=== PATIENT | male | born 1990 | race Caucasian/White ===

== ENCOUNTER 2024-04-21 10:45 | Inpatient (IN) | payer BC, SELFPAY ==
[2024-04-21] VITALS (11 sets, daily range): BP systolic 151–192; BP diastolic 90–110; BMI 44.4; BMI 45.4
--- NOTE | 2024-04-21 08:14 | ED.GENMED ---
History of Present Illness
General
Chief Complaint: Abdominal Pain
Source: patient and ambulance crew
Exam Limitations: none
Time Seen by Provider: 04/21/24 08:08
Nursing documentation reviewed up to this point in time: agreed with
History of Present Illness
History of Present Illness:
33-year-old male with a past medical history of hypertension who presents to the emergency department for evaluation of abdominal pain. Patient reports onset this morning when he woke up of mild 'stomach ache.' He says that he was driving to work
and had acute onset of intense left upper quadrant pain. Symptoms have been constant since that time. He reports associated nausea and vomiting. He reports diaphoresis. He has had some loose stools this morning. No dysuria, hematuria, change in
urinary frequency noted. No fevers or chills noted. He denies similar symptoms in the past. Denies any prior history of abdominal surgeries. Denies drinking alcohol but does admit to daily marijuana use.
Past History
Past History
ED Past Medical History: None
ED Past Surgical History: None
Social History
Tobacco: Non-smoker
Review of Systems
Review of Systems
All Other Systems: ROS reviewed and negative except as documented in HPI and ROS
Constitutional: Denies fever or chills
Respiratory: Denies trouble breathing
Cardiac: Reports diaphoresis; Denies chest pain or palpitations
ABD/GI: Reports abdominal pain, nausea, vomiting and diarrhea
: Denies dysuria, frequency, flank pain or bleeding
Musculoskeletal: Denies neck pain or back pain
Neurological: Denies dizzy or headache
Phy Exam
Physical Exam
Physical Exam:
General: Awake, alert, oriented x3; diaphoretic and shifting in the bed, difficulty finding comfortable position
Head: Normocephalic, atraumatic
Eyes: Conjunctiva normal, sclera anicteric
Throat: Airway intact, handling secretions
Neck: Trachea midline, supple without meningismus
Lungs: Clear to auscultation bilaterally, no wheezing, rales, rhonchi
Heart: Regular rate and rhythm, no murmurs, gallops, or rubs
Abd: Soft, non distended, nontender with no palpable masses
Back: No CVA tenderness
Neuro: No gross deficits
Skin: Moist/diaphoretic, no rash noted
Extremities: No edema in extremities, warm well-perfused
Scores
Heart Failure Risk
Heart Failure Risk Score: Not Applicable
Heart Score for Chest Pain Patients
STEMI patient?: Not applicable
Withdrawal Assessment of Alcohol
Withdrawal Assessment Completed?: Not applicable
Course
Orders/Labs/Results
Orders:
Orders
04/21/24 08:05
EKG [Electrocardiogram (*1)] Urgent
Reason for Study: Abdominal Pain
EKG- Treatment ONCE
04/21/24 08:09
Complete Blood Count/With Diff Urgent
Comprehensive Metabolic Panel Urgent
LDH Urgent
Comment: ADD ON
Lipase Urgent
Troponin I Urgent
04/21/24 08:10
CT Abd/pel Without Iv Or Oral Urgent
Comment:
Reason For Exam: left sided abd pain, c/f kidney stone
Urinalysis Reflex To Culture Urgent
04/21/24 08:13
HYDROmorphone [Dilaudid] 0.5 mg IV NOW STA
04/21/24 08:14
0.9% Sodium Chloride 1000 ml [Nss] 1,000 ml IV BOLUS
04/21/24 08:36
HYDROmorphone [Dilaudid] 1 mg IV NOW STA
04/21/24 08:42
Add On- LAB Urgent
Tests Added?: LDH
04/21/24 08:54
GASTROINTESTINAL CONSULT Urgent
Consulting Provider: Ramila Basurto
Was physician already notified: Yes
04/21/24 08:59
Fentanyl Citrate/Pf [Sublimaze] 100 mcg IV NOW STA
Abnormal Lab Results
04/21/24
08:09
WBC 20.8 H 10^3/uL
(4.8-10.8)
Abs Immat Gran (auto) 0.1 H 10^3/uL
(0-0.05)
Absolute Neuts (auto) 15.6 H 10^3/uL
(1.4-6.5)
Absolute Lymphs (auto) 3.5 H 10^3/uL
(1.2-3.4)
Absolute Monos (auto) 1.3 H 10^3/uL
(0.1-0.6)
Lymphocytes % 16.8 L %
(20.5-51.1)
Chloride 108 H mmol/L
(98-107)
Carbon Dioxide 19 L mmol/L
(22-30)
Glucose 179 H mg/dl
(70-99)
AST 60 H U/L
(17-59)
ALT 64 H U/L
(0-50)
Lipase > 4000 H* U/L
(23-300)
04/21/24 08:09
04/21/24 08:09
Vital Signs
Initial and Last Documented VS:
Initial Vital Signs
Temp Pulse Resp BP Pulse Ox
36.6 C 72 17 192/109 97
04/21/24 08:04 04/21/24 08:04 04/21/24 08:04 04/21/24 08:04 04/21/24 08:04
Last Documented Vital Signs
Temp Pulse Resp BP Pulse Ox
36.6 C 65 17 192/109 97
04/21/24 08:04 04/21/24 08:12 04/21/24 08:04 04/21/24 08:12 04/21/24 08:15
MDM/Problems Addressed
Differential Diagnosis Includes:
Nephrolithiasis, gastritis/PUD, pancreatitis, colitis/enteritis, diverticulitis
MDM/Problems Addressed:
33-year-old male presents to the emergency room for evaluation of left upper quadrant abdominal pain�had mild pain this morning with abrupt worsening just prior to arrival. Associated with nausea and vomiting, also had some loose stools this
morning. Vitals and exam as above. Received IV Toradol and Zofran prior to hospital arrival with reasonable control of nausea but inadequate pain control. Will place an IV send labs including a CBC and CMP, lipase. Check an EKG and troponin.
Check urinalysis. Will send for CT abdomen pelvis�clinical impression at this point is likely nephrolithiasis. Will provide additional pain control and IV fluids. Monitor closely reassess after the above.
CT reviewed by me appears to show acute pancreatitis no clear sign of nephrolithiasis. CBC shows WBC of 20, CMP and lipase are pending. Patient pain improved with Dilaudid 0.5 mg but still significant discomfort we will provide additional pain
control. Fluids in progress. I did question patient about alcohol use and again he denied any alcohol use. Anticipate admission.
CMP shows normal T. bili, marginal transaminitis with AST of 60 and ALT of 64; lipase greater than 4000. Still in pain, provide additional pain control. Case discussed with gastroenterology to evaluate�denies drinking history, at this point would
be concerned for possible gallstone pancreatitis. Case discussed with hospitalist for admission.
Acute Exacerbation and/or Progression of Chronic Illness:
Acutely hypertensive likely related to pain�will treat pain will hold on additional antihypertensive for now in the absence of signs/symptoms of hypertensive emergency
Acute Exacerbation and/or Progression of Chronic Illness: HTN
*Radiology
Radiology exam reviewed: preliminary read by ED provider (Acute pancreatitis) and radiology read reviewed
*Pulse Oximetry
Patient hypoxic: no
*EKG
Interpreted by ED Provider?: Yes
Heart Rate: 62
Rate: normal
Rhythm: sinus
[place]: normal axis
Interval: normal interval
QRS Pattern: normal QRS
Ischemia: no ischemia
*Critical Care Note
Total Time (30-74mins, 75-104mins- exclusive of procedures): Not Applicable
Data Reviewed
Review of Other/Old Records Reveals: Labs and Records
Source: patient and ambulance crew
Patient Management
Discussion with other providers: Hospitalist (Discussed with hospitalist) and Rebar Bender (Discussed with gastroenterology)
Escalation/DeEscalation of care consider admission/obs:
Admission indicated
ED Attending Note
-
Portions of this chart may have been created with voice recognition software.� Occasional wrong word or��sound alike� substitutions may have occurred due to the inherent limitations of voice recognition software.
Discharge Plan
Departure
Patient Disposition: Admit
Date of Disposition: 04/21/24
Time of Disposition: 08:57
Admit to doctor: Do
Presentation/result/management discussed w/ accepting MD/DO: Hospitalist
Patient with high blood pressure during this ER visit?: Yes
Discharge Problem:
Acute pancreatitis
Prescriptions:
No Action
allopurinol 100 mg Tablet
100 mg PO DAILY
lisinopril 10 mg Tablet
10 mg PO DAILY
atomoxetine 18 mg Capsule
18 mg PO DAILY
Referrals:
NONE,* [Family Provider] -
Interventions
Interventions:
*Risk Screen - Suicide Last Done: 04/21/24 08:06
*General Assessment Last Done: 04/21/24 08:06
*Neglect/Abuse Screening Last Done: 04/21/24 08:06
*ED COVID-19 Vaccine History Last Done: 04/21/24 08:06
PZ-Gvkeap-Cpsazxclif Assessment Last Done: 04/21/24 08:06
Discharge Date and Time
Print Language: AMHARIC
[2024-04-21] MEDS: NSS 1000 IV (08:17)
[2024-04-21] MEDS: DILAUDID 0.5 MG IV (08:17)
[2024-04-21 08:19] LABS: % Basophils 0.2 % (0-2); % Eosinophils 1.3 % (0-6); % Immature Granulocytes 0.4 % (0-0.5); % Lymphocytes 16.8 % (20.5-51.1); % Monocytes 6.1 % (1.7-9.3); % Neutrophils 75.2 % (42.2-75.2); Absolute Basophils 0.1 10^3/uL (0-0.2); Absolute Eosinophils 0.3 10^3/uL (0-0.7); Absolute Immature Granulocytes 0.1 10^3/uL (0-0.05); Absolute Lymphocytes 3.5 10^3/uL (1.2-3.4); Absolute Monocytes 1.3 10^3/uL (0.1-0.6); Absolute Neutrophils 15.6 10^3/uL (1.4-6.5); Hematocrit 46.2 % (39.0-52.0); Hemoglobin 16.1 g/dL (13.0-18.0); Mean Corp Hgb Conc. 34.8 g/dL (33.0-37.0); Mean Corpuscular Hgb 28.8 pg (27.0-31.0); Mean Corpuscular Volume 82.6 fL (80.0-94.0); Mean Platelet Volume 10.3 fL (7.4-10.4); Nucleated Red Blood Cells % 0 % (-); Platelet Count 191 10^3/uL (130-400); Red Blood Cell Count 5.59 10^6/uL (4.70-6.10); Red Cell Dist. Width 13.6 % (11.5-14.5); White Blood Cell Count 20.8 10^3/uL (4.8-10.8)
[2024-04-21 08:33] LABS: ALT (SGPT) 64 U/L (0-50); AST (SGOT) 60 U/L (17-59); Albumin 4.7 g/dl (3.5-5.0); Alkaline Phosphatase 96 U/L (38-126); Blood Urea Nitrogen 14 mg/dl (9-20); Calcium 9.4 mg/dl (8.4-10.2); Carbon Dioxide 19 mmol/L (22-30); Chloride 108 mmol/L (98-107); Estimated Creatinine Clearance > 125 ml/min; Glucose 179 mg/dl (70-99); Potassium 3.5 mmol/L (3.5-5.1); Sodium 138 mmol/L (135-145); Total Protein 7.2 g/dl (6.3-8.2); eGFR > 60.00
[2024-04-21] MEDS: DILAUDID 1 MG IV ×5 (08:38→20:48)
[2024-04-21 08:45] LABS: Troponin I < 0.012 ng/ml
[2024-04-21 08:49] LABS: Lipase > 4000 U/L (23-300)
[2024-04-21 08:58] LABS: LDH 234 U/L (120-246)
[2024-04-21] MEDS: SUBLIMAZE 100 MCG IV (09:05)
--- NOTE | 2024-04-21 10:34 | CM ---
Patient seen at bedside with physician. Patient also present. Patient sleepy from pain medication per . Patient lives in 2 story home with . patient indicated no DME, independent of ADL's and IADL's. [facility] [place]
[address] Patient PCP is Dr. Zamudio in [facility]. Patient supportive and plan is for home with no needs pending medical treatment plan. Patient indicated that they have concerns about bills, CM offered [email or web address] and
declined stating that they consistently do not qualify for resources. CM will continue to follow for discharge planning needs.
Plan; home with VN vs home with no needs.
--- NOTE | 2024-04-21 10:39 | HPS.HSE ---
Family Physician
-
Family Physician: Girish Padron, DO
Chief Complaint
-
Acute onset mid epigastric pain
History of Present Illness
Patient is a 33-year-old male with a past medical history significant for essential hypertension, prediabetes, gout, attention deficit hyperactivity disorder who presented with acute abdominal pain starting at 7 AM. He states that this is in his
mid epigastric area and describes it as crampy and sharp. He states that it migrates to his back and down to his lower abdomen. He denies fevers or chills. He admits to nausea and vomiting as well as diarrhea. He has had no previous episodes.
He has no family history of pancreatitis. He denies any significant alcohol intake. He is found to have a lipase of greater than 4000 with mildly elevated LFTs. Patient is being admitted.
Medical History
Past Medical History
Past Medical History: Reports Other
Additional Past Medical History:
Essential hypertension
Prediabetes
Gout
Attention deficit hyperactivity disorder
Past Surgical History: Reports Other
Additional Past Surgical History:
Deviated septum and tonsils and adenoids
Social History
Tobacco: Other (Occasionally smokes cigars)
Alcohol: Occasional (More likely rare per patient and )
Drug: Marijuana (Also smokes recreational marijuana)
Personal:
Living: With Family
Family History
Family History: Other (Father of a stroke and had diabetes, mother had diabetes, essential hypertension, anxiety and depression)
Allergies / Home Medications
Allergies reflects when Allergies were last updated in [facility].
Home Medications with original date entered in [facility]
Allergy/Medication List:
Allergies
Allergy/AdvReac Type Severity Reaction Status Date / Time
No Known Allergies Allergy Verified 04/21/24 08:04
Home Medications
allopurinol 100 mg tablet 100 mg PO DAILY 07/25/23
atomoxetine 18 mg capsule 18 mg PO DAILY 07/25/23
lisinopril 10 mg tablet 10 mg PO DAILY 07/25/23
Review of Systems
-
History Source: Patient and Family
A 12 point ROS was completed and negative except as noted: Yes
Constitutional: Denies Fever or Chills
EENT: Reports No Symptoms
Respiratory: Reports Trouble Breathing (Earlier noted by possibly due to pain)
Cardiac: Reports No Symptoms; Denies Chest Pain or Palpitations
Abdomen/GI: Reports Abdominal Pain, Nausea, Vomiting and Diarrhea
: Reports No Symptoms
Musculoskeletal: Reports No Symptoms
Skin: Reports No Symptoms
Neurological: Denies Dizzy, Headache or Weakness
Endocrine: Reports No Symptoms
Hematologic/Lymphatic: Reports No Symptoms
Physical Exam
Vital Signs
Vital Signs
Temp Pulse Resp BP Pulse Ox
97.9 F 65 14 168/96 90
04/21/24 08:04 04/21/24 10:00 04/21/24 09:15 04/21/24 10:00 04/21/24 10:00
Physical Exam
General: Well Developed, Well Nourished, No Apparent Distress and Obese
HEENT: NormoCephalic, Anicteric and Atraumatic; No Oxygen
Respiratory: Clear; No Wheezes, Rales, Rhonchi or Crackles
Cardiac: S1/S2 and Regular Rhythm; No Murmur
GI: Soft, Non Distended and Tender (Midepigastric and periumbilical without guarding or rebound); No Normal Bowel Sounds (Hypoactive)
Musculoskeletal: No Clubbing, No Cyanosis and No Edema
Skin: Warm and Dry
Neuro: Awake (But sleepy due to receiving pain medication) and Alert
Psych: Calm
Laboratory Results
-
04/21/24 08:09
04/21/24 08:09
Laboratory Results
Total Bilirubin 1.0 mg/dl (0.2-1.3) 04/21/24 08:09
AST 60 U/L (17-59) H 04/21/24 08:09
ALT 64 U/L (0-50) H 04/21/24 08:09
Alkaline Phosphatase 96 U/L (38-126) 04/21/24 08:09
Troponin I < 0.012 ng/ml 04/21/24 08:09
Lipase > 4000 U/L (23-300) H* 04/21/24 08:09
Impression/Plan
-
Patient is a 33-year-old male
Acute pancreatitis--with leukocytosis likely reactive--patient does not meet criteria for sepsis at this time--ADMIT--patient has rare alcohol use if any and CAT scan does not show any dilated ducts or stones noted in the gallbladder--therefore
etiology remains unclear--possibly due to lisinopril--consult GI, may need MRCP--NPO/IVF, pain control
Essential hypertension--lisinopril on hold
Gout--allopurinol on hold
ADHD--atomoxetine (Strattera) on hold
Prediabetes--will place on Accu-Cheks with sliding scale coverage, check hemoglobin A1c
Lung nodule--noted on CAT scan--did not tell patient as he was too sleepy to understand--will need follow-up as outpatient
DVT prophylaxis
CODE STATUS--full code
--- NOTE | 2024-04-21 11:30 | PTCARENOTE ---
Received pt from ER. Pt drowsy but arousable to verbal stimuli. Pt oriented x3. Pt c/o Pain in left upper abd/ epigastric area, medicated per orders.Pt bp elevated orders for iv hydralazine, given per orders, Pt other VSS. 98% on RA. Pt oriented to
room, call poe within reach, at bedside both updated on plan of care.
[2024-04-21 11:47] LABS: Glucose - Point of Care 133 mg/dl (70-99)
[2024-04-21] MEDS: LR 1000 IV ×3 (11:58→21:54)
[2024-04-21] MEDS: TORADOL 10 MG IV (11:58)
--- NOTE | 2024-04-21 12:00 | CON.GI ---
Addendum entered and electronically signed by Ramila Basurto MD 04/21/24 17:41:
I saw and examined the patient.
The [facility] [employer]'s note was reviewed and I agree with the note.
Comment: This is a 33-year-old male who presented with acute onset of epigastric pain radiating to the back today while he was driving to work. On admission CT showed acute pancreatitis with peripancreatic acute fluid collection no gallstones were
noted. Also noted hepatic steatosis and he does have mildly elevated transaminases And elevated lipase level. His triglycerides are also mildly elevated at 305 his calcium is normal at 9.4. He has not had prior gallstones or pancreatitis. He
denies any recent change in medications and he does use marijuana daily.
Assessment and plan first episode of acute pancreatitis most likely related to possible passed gallstone his triglyceride level is only mildly elevated doubt that is the cause of the pancreatitis and he only has occasional alcohol use. no obvious
gallstones were noted on CT will get an MRI with MRCP. Continue IV hydration, pain control, add PPI and on nausea medication
Fatty liver with mildly elevated transaminases continue to trend and can follow-up as outpatient for further workup and possible FibroScan. Will need to try to lose some weight and eat Mediterranean based diet as outpatient.trend LFTS
Original Note:
Consultation
-
Date/Time Consultation Requested: 04/22/24 0824
Date/Time Consultation Performed: 04/22/24 1140
Requesting Provider: Dr. Noel
Performing Provider: Dr. Basurto/VICKY Boyle
Reason for Consultation: pancreatitis
Medical History
Chief Complaint / HPI
Chief Complaint: abd pain
History of Present Illness:
33-year-old male with past medical history of ADHD, hypertension and gout presents to the emergency room with acute onset of nausea, vomiting and severe abdominal pain. Asked to evaluate for acute pancreatitis. Patient states that he awoke this
morning with some mild nausea, he went to go to work. He started feeling significantly sick with nausea and felt that he had to vomit. He pulled over and went while. He did have a small amount of bilious emesis and felt as if he was going to pass
out. He got cold sweats had severe abdominal pain and felt if he could just vomit or have bowel movement he would feel better. He was brought to the emergency room where he had severe abdominal pain. This was diffuse throughout his entire
abdomen. The patient has no prior history of gallstones. He drinks rarely. Of note the past 2 weekends he had 3 beers this past Saturday and the Saturday prior 3 beers other than that he usually does not drink any alcohol. He has no new
medications. His medications include allopurinol, Strattera and lisinopril. He does not use any other medications, supplements. He does not smoke tobacco. He does smoke marijuana on a daily basis which she gets from a dispensary. He was
recently told he is 'prediabetic although he does not recall the numbers'. He denies any fevers, melena, hematochezia, dysphagia or dyne aphasia. No early satiety or unintentional weight loss. He was just at the urologist yesterday as he noticed
some lesions on the underside of his penis. He was given a steroid cream that he has not used yet. He also has some blisters on the right palm of his hand.
Past Medical History
Past Medical History: HTN and Other (ADHD, gout, 'prediabetes'.)
Past Surgical History: Tonsilectomy (Adenoidectomy,Septoplasty) and Other
Social History
Tobacco: Non-Smoker
Alcohol: Occasional
Drug: Marijuana
Personal:
Living: With Family
Employment: Not Employed
Family History
Family History: Other (No family history gastrointestinal malignancy, IBD or pancreatitis)
Allergies / Home Medications
Allergy/AdvReac Type Severity Reaction Status Date / Time
No Known Allergies Allergy Verified 04/21/24 08:04
�Medication �Instructions �Recorded
allopurinol 100 mg tablet 100 mg PO DAILY Gout 07/25/23
atomoxetine 18 mg capsule 18 mg PO DAILY Neurological 07/25/23
Condition
lisinopril 10 mg tablet 10 mg PO DAILY Blood Pressure 07/25/23
Review of Systems
-
All other systems: A 12 pt ROS was Negative except as stated above in HPI
Vital Signs
Temp Pulse Resp BP Pulse Ox
97.6 F 74 18 190/104 98
04/21/24 11:28 04/21/24 11:28 04/21/24 11:28 04/21/24 11:28 04/21/24 11:28
Physical Exam
Exam
General: Other (Appears uncomfortable)
HEENT: Anicteric
Respiratory: Clear (Anterior)
Cardiac: Regular Rhythm
GI: Soft, Non Distended, Normal Bowel Sounds and Tender (Central abdomen, Diffuse)
Musculoskeletal: No Edema
Skin: Warm and Dry
Neuro: AO x 3
Psych: Calm
Results
WBC 20.8 10^3/uL (4.8-10.8) H 04/21/24 08:09
Hgb 16.1 g/dL (13.0-18.0) 04/21/24 08:09
Hct 46.2 % (39.0-52.0) 04/21/24 08:09
MCV 82.6 fL (80.0-94.0) 04/21/24 08:09
Plt Count 191 10^3/uL (130-400) 04/21/24 08:09
Absolute Neuts (auto) 15.6 10^3/uL (1.4-6.5) H 04/21/24 08:09
Sodium 138 mmol/L (135-145) 04/21/24 08:09
Potassium 3.5 mmol/L (3.5-5.1) 04/21/24 08:09
Chloride 108 mmol/L (98-107) H 04/21/24 08:09
Carbon Dioxide 19 mmol/L (22-30) L 04/21/24 08:09
BUN 14 mg/dl (9-20) 04/21/24 08:09
Creatinine 1.0 mg/dL (0.7-1.3) 04/21/24 08:09
Calcium 9.4 mg/dl (8.4-10.2) 04/21/24 08:09
Total Bilirubin 1.0 mg/dl (0.2-1.3) 04/21/24 08:09
AST 60 U/L (17-59) H 04/21/24 08:09
ALT 64 U/L (0-50) H 04/21/24 08:09
Alkaline Phosphatase 96 U/L (38-126) 04/21/24 08:09
Lipase > 4000 U/L (23-300) H* 04/21/24 08:09
Diagnostic Image Results:
CT of the abdomen and pelvis without IV or oral contrast:
IMPRESSION:
Acute interstitial edematous pancreatitis. There is peripancreatic and retroperitoneal fluid, but no drainable fluid collection.
Atherosclerotic calcifications involving the visualized coronary arteries and aortobiiliac vasculature that is greater than expected for a patient of this age.
Hepatomegaly and hepatic steatosis.
Partially visualized 4.8 mm nodule in the right middle lobe. See below for follow-up guidelines.
Other Chronic/incidental findings as detailed in the body the report.
Prior GI Procedures:
EGD: Never had
Colonoscopy: Never had
Assessment / Plan
-
33-year-old male with past medical history of ADHD, hypertension and gout presents to the emergency room with acute onset of nausea, vomiting and severe abdominal pain. Asked to evaluate for acute pancreatitis. No new medications, 3 alcoholic
beverages over the weekend, no chronic use. No known gallstones. CAT scan with no gallstones present. WBC 20.8, hemoglobin 16.1, hematocrit 46.2, platelets 191, sodium 138, potassium 3.8, chloride 108, CO2 19, BUN 14, creatinine 1.0, glucose 179,
total bilirubin 1.0, AST 60, ALT 64, alk phos 96, albumin 4.7, lipase greater than 4000. CT of the abdomen pelvis without oral or IV contrast showing gallbladder within normal limits. Pancreas is edematous with surrounding peripancreatic fluid
compatible with acute pancreatitis. There is no peripancreatic fluid collection. Pancreatic parenchyma is relatively uniform. No pancreatic mass or dilatation within the main pancreatic duct.
Impression:
Acute pancreatitis
Plan:
-Patient already received 1 L of IV fluids, continue IV fluids at 200 cc an hour
-Analgesia
-Check UDS
-Check Triglycerides, IgG4 subclasses
-CRP, Lipase, CBC, BMP, LFTs in am
-Incentive spirometer
-If with further pain, worsening issues to consider MRI/MRCP
-Further recommendations to be forthcoming.
Data Reviewed
-
CT Scan: Report Reviewed by me
-
-
Thank you for consultation and allowing me to participate in the patient's care. Please call the ribbon hanking machine operator GI physician during the after hours with any questions or concerns.
--- NOTE | 2024-04-21 12:25 | CM ---
ED CM met with pt and sister bedside
Pt resides with his spouse and 3 y/o dtr in a 3SH with 3 MELODY
Pt is independent with his ADLs, denies use of DMEs
Works FT in [employer]
PCP- Girish Padron
Rx- [facility]
Discharge Disposition- anticipate home no needs
[2024-04-21 12:27] LABS: Direct Bilirubin 0.3 mg/dl (0.0-0.4); Triglycerides 305 mg/dl (10-149)
[2024-04-21 13:20] LABS: Urine Albumin 1+ (Neg - Trace); Urine Bilirubin Negative (Negative); Urine Character Clear (Clear); Urine Color Yellow; Urine Glucose Negative (Negative); Urine Ketone 1+ (Negative); Urine Leukocyte Negative (Negative); Urine Nitrite Negative (Negative); Urine Occult Blood Negative (Negative); Urine Specific Gravity 1.025 (<1.030); Urine Urobilinogen Negative (Neg - 1+)
[2024-04-21 13:34] LABS: Amphetamines Negative (Negative); Barbiturates Negative (Negative); Benzodiazepines Negative (Negative); Buprenorphine Negative (Negative); Cocaine Negative (Negative); Marijuana Positive (Negative); Methadone Negative (Negative); Methamphetamines Negative (Negative); Phencyclidine Negative (Negative); Tricyclic Antidepressants Negative (Negative)
[2024-04-21] MEDS: APRESOLINE 10 MG IV ×3 (13:34→22:44)
[2024-04-21 13:35] LABS: Opiates Positive (Negative)
[2024-04-21 13:50] LABS: Urine Mucus Many
[2024-04-21 13:51] LABS: Urine Amorphous Seen; Urine Squamous Cell 0-2 /LPF (Few)
[2024-04-21 13:52] LABS: Urine Red Blood Cell 0-2 /HPF (0-2); Urine White Cell 0-2 /HPF (0-5)
[2024-04-21 14:15] LABS: Fentanyl, Urine Positive (Negative)
[2024-04-21] MEDS: ZOFRAN 4 MG IV (15:30)
[2024-04-21 18:02] LABS: Glucose - Point of Care 204 mg/dl (70-99)
--- NOTE | 2024-04-21 18:20 | PTCARENOTE ---
Pt medicated for pain throughout shift, continues with high BPs hydralazine given per orders last bp 176/99 HR :103. MD made aware, plan of care continues.
[2024-04-21] MEDS: LOVENOX 40 MG SC (18:31)
[2024-04-21] MEDS: NOVOLOG FLEXPEN-LOW RESISTANCE 2 UNITS SC (18:32)
[2024-04-21] MEDS: NSS (PRESERVATIVE FREE) 10 ML IV (18:32)
[2024-04-21] MEDS: PROTONIX IV 40 MG IV (18:32)
[2024-04-21] MEDS: TORADOL 15 MG IV (18:37)
[2024-04-21] MEDS: TYLENOL 650 MG PO (22:44)
[2024-04-22] VITALS (8 sets, daily range): BP systolic 129–178; BP diastolic 79–113
[2024-04-22 00:08] LABS: Glucose - Point of Care 222 mg/dl (70-99)
[2024-04-22] MEDS: DILAUDID 1 MG IV ×3 (00:13→07:55)
[2024-04-22] MEDS: NOVOLOG FLEXPEN-LOW RESISTANCE 2 UNITS SC ×4 (00:13→17:19)
[2024-04-22] MEDS: TORADOL 15 MG IV ×2 (02:26→09:12)
[2024-04-22] MEDS: LR 1000 IV ×5 (02:58→23:19)
[2024-04-22] MEDS: TYLENOL 650 MG PO ×2 (05:54→12:20)
[2024-04-22 05:59] LABS: Glucose - Point of Care 209 mg/dl (70-99)
[2024-04-22] MEDS: NSS (PRESERVATIVE FREE) 10 ML IV (07:54)
[2024-04-22] MEDS: PROTONIX IV 40 MG IV (07:54)
[2024-04-22] MEDS: FLUSH (NSS) 1 FLUSH IV ×6 (07:55→17:15)
[2024-04-22 08:57] LABS: Hematocrit 45.3 % (39.0-52.0); Hemoglobin 16.1 g/dL (13.0-18.0); Mean Corp Hgb Conc. 35.5 g/dL (33.0-37.0); Mean Corpuscular Hgb 28.8 pg (27.0-31.0); Mean Platelet Volume 10.2 fL (7.4-10.4); Platelet Count 191 10^3/uL (130-400); Red Blood Cell Count 5.59 10^6/uL (4.70-6.10); Red Cell Dist. Width 14.1 % (11.5-14.5); White Blood Cell Count 14.8 10^3/uL (4.8-10.8)
[2024-04-22] MEDS: APRESOLINE 10 MG IV ×5 (09:31→23:19)
[2024-04-22 10:43] LABS: ALT (SGPT) 51 U/L (0-50); AST (SGOT) 115 U/L (17-59); Alkaline Phosphatase 51 U/L (38-126); Blood Urea Nitrogen 22 mg/dl (9-20); Calcium 7.7 mg/dl (8.4-10.2); Carbon Dioxide 19 mmol/L (22-30); Chloride 107 mmol/L (98-107); Direct Bilirubin 0.6 mg/dl (0.0-0.4); Estimated Creatinine Clearance > 125 ml/min; Glucose 206 mg/dl (70-99); Magnesium 1.6 mg/dl (1.6-2.3); Potassium 4.8 mmol/L (3.5-5.1); Sodium 134 mmol/L (135-145); Total Bilirubin 2.5 mg/dl (0.2-1.3); Total Protein 6.2 g/dl (6.3-8.2); eGFR > 60.00
--- NOTE | 2024-04-22 10:50 | PTCARENOTE ---
Pt c/o LLQ abd pain; reports no relief from prn pain meds- 'only works for about an hour'. Pt 's BP elevated; prn Hydralazine 10 mg dose given @ 9:30; BP currently 174/102; HR 119. Pt also c/o SOB; pulseox 92%, RR 24. Dr. Cee notified.
[2024-04-22 10:53] LABS: Glycohemoglobin (HgbA1c) 6.1 % (4.0-5.6)
[2024-04-22] MEDS: MORPHINE SULFATE 2 MG IV (11:00)
[2024-04-22 11:10] LABS: Lipase > 4000 U/L (23-300)
--- NOTE | 2024-04-22 11:20 | CM ---
Patient seen at bedside with Physician, also present. Patient with continued pain. physician aware. Plan for patient to return to home with no needs when medically appropriate. CM will continue to follow for discharge planning needs.
Plan; home with no needs
--- NOTE | 2024-04-22 11:23 | W.PN.HOSP.TC ---
Today's Communication/Plan
-
adjust pain meds
NPO/IVF
await MRCP
Assessment / Plan
Assessment / Plan
pt is a 33 year old male
Acute pancreatitis--with leukocytosis likely reactive--patient does not meet criteria for sepsis at this time (does currently elevated WBC and tachycardic)---patient has rare alcohol use if any and CAT scan does not show any dilated ducts or stones
noted in the gallbladder--therefore etiology remains unclear--possibly due to lisinopril--apprec GI, MRCP pending--NPO/IVF, pain control
Essential hypertension--lisinopril on hold
Gout--allopurinol on hold
ADHD--atomoxetine (Strattera) on hold
Prediabetes--will place on Accu-Cheks with sliding scale coverage, check hemoglobin A1c
Lung nodule--noted on CAT scan--told pt and --will need follow-up as outpatient
DVT prophylaxis
CODE STATUS--full code
Anticipated Discharge: > 48 hours
Subjective/Interval History
-
Date of Service: April 22, 2024
pt c/o significant pain and BP up too
Objective Data
-
Labs:
Laboratory Results
04/22/24
08:31
WBC 14.8 H
Hgb 16.1
Hct 45.3
Plt Count 191
Sodium 134 L
Potassium 4.8 D
Chloride 107
Carbon Dioxide 19 L
BUN 22 H
Creatinine 1.0
Glucose 206 H
Calcium 7.7 L D
Total Bilirubin 2.5 H D
AST 115 H
ALT 51 H
Alkaline Phosphatase 51
Vital Signs:
max temp for 24 hours
04/22/24
08:00
Temp 98.1 F
Vital Signs
Temp Pulse Resp BP Pulse Ox
98.1 F 119 24 174/102 92
04/22/24 08:00 04/22/24 10:45 04/22/24 10:45 04/22/24 10:45 04/22/24 10:45
I&O
04/21/24 04/22/24 04/23/24
06:59 06:59 06:59
Intake Total 2200 / 2200
Output Total 950 / 950
Balance 1250 / 1250
Review of Systems
-
Abdomen/GI: Reports Abdominal Pain
Physical Exam
-
General: Well Developed, Well Nourished and No Apparent Distress
HEENT: Normocephalic and Atraumatic
Respiratory: Clear to Auscultation; Negative Wheezes, Rhonchi or Crackles
Cardiac: Regular Rhythm and S1/S2
GI: Soft, Tender and Distended; Negative Normal Bowel Sounds (hypoactive)
Musculoskeletal: No Clubbing, No Cyanosis and No Edema
Neuro: Awake and Alert
Psych: Calm
[2024-04-22 11:30] LABS: Glucose - Point of Care 228 mg/dl (70-99)
--- NOTE | 2024-04-22 11:56 | PN.CDI ---
CDI
- -
CDI:
Physician Documentation Request
Admit Date: 04/21/24 10:45
Dear Doctor Jaye,
Please review the following and provide your response in the progress notes.
Clinical Indicators:
Height: 6'1
Weight: 344lbs
BMI: 45.4
- 04/21 GI 'Fatty liver with mildly elevated transaminases...need to try to lose some weight and eat Mediterranean based diet as outpatient'
If possible, please provide an associated diagnosis related to the abnormal BMI, such as:
Morbid obesity
BMI is not significant
Other
Use of terms such as suspected, likely, concern for, or probable (associated with a specific diagnosis that is being evaluated, monitored, or treated as if it exists) are acceptable and can be coded in the inpatient setting, when documented at the
time of discharge.
Thank you,
Keith Ly RN
CDI Specialist
Please use your independent medical judgment in providing your response.
--- NOTE | 2024-04-22 12:39 | W.PN.GI.CBS2 ---
Today's Communication / Plan
-
MRI with MRCP
IVF
increase pain meds
incentive spirometry
Assessment / Plan
-
33-year-old male with past medical history of ADHD, hypertension and gout presents to the emergency room with acute onset of nausea, vomiting and severe abdominal pain. Asked to evaluate for acute pancreatitis. No new medications, 3 alcoholic
beverages over the weekend, no chronic use. No known gallstones. CAT scan with no gallstones present. WBC 20.8, hemoglobin 16.1, hematocrit 46.2, platelets 191, sodium 138, potassium 3.8, chloride 108, CO2 19, BUN 14, creatinine 1.0, glucose 179,
total bilirubin 1.0, AST 60, ALT 64, alk phos 96, albumin 4.7, lipase greater than 4000. CT of the abdomen pelvis without oral or IV contrast showing gallbladder within normal limits. Pancreas is edematous with surrounding peripancreatic fluid
compatible with acute pancreatitis. There is no peripancreatic fluid collection. Pancreatic parenchyma is relatively uniform. No pancreatic mass or dilatation within the main pancreatic duct.
A/Plan:
first episode of acute pancreatitis most likely related to possible passed gallstone, his triglyceride level is only mildly elevated doubt that is the cause of the pancreatitis and he only has occasional alcohol use. no obvious gallstones were noted
on CT will get an MRI with MRCP. Continue IV hydration, pain control, added PPI and on nausea medication. IgG4-P. His LFTs are rising and given persistent pain-concern for possible CBD stone
Will need ERCP if MRCP consistent with CBD stone
Discussed with Dr. Cee she increased his dose for pain medicine
Incentive spirometer
Fatty liver with mildly elevated transaminases continue to trend and can follow-up as outpatient for further workup and possible FibroScan. Will need to try to lose some weight and eat Mediterranean based diet as outpatient.
trend LFTS
Dw at bedside also
Subjective
Subjective
Date of Service: April 22, 2024
Still with significant pain. Leukocytosis is improving
Remains afebrile. LFTs are slightly higher today with also increased bilirubin normal alkaline phosphatase
Objective
Data Reviewed
Laboratory Data:
Laboratory Results
04/22/24 08:31
04/22/24 08:31
Laboratory Results
Magnesium 1.6 mg/dl (1.6-2.3) 04/22/24 08:31
Total Bilirubin 2.5 mg/dl (0.2-1.3) H D 04/22/24 08:31
AST 115 U/L (17-59) H 04/22/24 08:31
ALT 51 U/L (0-50) H 04/22/24 08:31
Alkaline Phosphatase 51 U/L (38-126) 04/22/24 08:31
Lipase > 4000 U/L (23-300) H* 04/22/24 08:31
Vital Signs and I&O:
Vital Signs
Temp Pulse Resp BP Pulse Ox
98.4 F 99 26 162/110 93
04/22/24 12:05 04/22/24 12:05 04/22/24 12:05 04/22/24 12:05 04/22/24 12:05
I&O
04/21/24 04/22/24 04/23/24
06:59 06:59 06:59
Intake Total 2200 / 2200
Output Total 950 / 950
Balance 1250 / 1250
Physical Exam
Physical Exam
Cardiology: Normal Sinus Rhythm
Pulmonary: Clear
GI: Soft, Non Distended, Tender (epigastric and also mild generalized tenderness), Normal Bowel Sounds and Other
[2024-04-22] MEDS: DILAUDID 2 MG IV ×4 (14:00→23:19)
--- NOTE | 2024-04-22 16:55 | PTCARENOTE ---
Pt AAO x3, CUMMINS well, OOB to BR; no c/o weakness/dizziness. VSS, BP remains elevated to 170's systolic; pt receiving iv Hydralazine q 4 hrs. On room air- puls eox 93%, no SOB noted. Abd obese, soft, remains NPO except meds/ice chips; no c/o
nausea. Pt c/o persistent Lt lower abd pain; frequently requesting pain meds; reports little effect. Voids in BR without difficulty. IVF's RL @ 200 ml/hr infusing via Lt forearm site without sx of infiltration. Resting in bed at present; at
bedside. Will continue to monitor.
[2024-04-22] MEDS: LOVENOX 40 MG SC (17:14)
[2024-04-22 17:15] LABS: Glucose - Point of Care 200 mg/dl (70-99)
[2024-04-23] VITALS (36 sets, daily range): BP systolic 84–190; BP diastolic 56–120; BMI 46.3
[2024-04-23] MEDS: TYLENOL 650 MG PO (00:09)
[2024-04-23] MEDS: NOVOLOG FLEXPEN-LOW RESISTANCE 2 UNITS SC ×2 (00:10→06:25)
--- NOTE | 2024-04-23 00:15 | PTCARENOTE ---
Provider notified patient's HR RR and Temp, Tylenol given PO.
[2024-04-23 00:16] LABS: Glucose - Point of Care 241 mg/dl (70-99)
[2024-04-23] MEDS: ATIVAN 1 MG IV (02:20)
[2024-04-23] MEDS: NSS (PRESERVATIVE FREE) 0.5 ML IV (02:20)
[2024-04-23] MEDS: DILAUDID 2 MG IV ×3 (02:21→09:19)
[2024-04-23 02:34] LABS: Blood Urea Nitrogen 40 mg/dl (9-20); Calcium 6.6 mg/dl (8.4-10.2); Carbon Dioxide 18 mmol/L (22-30); Chloride 109 mmol/L (98-107); Estimated Creatinine Clearance 81 ml/min; Glucose 224 mg/dl (70-99); Magnesium 1.6 mg/dl (1.6-2.3); Potassium 5.6 mmol/L (3.5-5.1); Sodium 134 mmol/L (135-145); eGFR 43.81
--- NOTE | 2024-04-23 02:37 | PTCARENOTE ---
Provider notified of BMP values, patient rec PRN Dilaudid and stat Ativan, resting in bed with no complaints.
--- NOTE | 2024-04-23 02:55 | W.PN.UPDATE ---
Update Note
Progress Note Update
RN notified DRY BOX TENDER patient's HR in 140's, mildly diaphoretic. rr is 28, bp 152/99, 100.4. Patient is on Hydralazine scheduled. Advised RN to initiate MSAS and also to give tylenol. Patient is an ocassional drinker denies recent drinking but admits to
Adderall at home plus spoked weed at least twice a day. Denies tremors or hallucinations. msas scored 5 therefore 1mg IV Ativan given.
BMP and Mag ordered as well. labs noted. NA 134, K 5.6, corrected calcium 6.2, BUN 40 Creat 2.0. Will D/C LR and will continue NSS 150CC/hr, Calcium gluconate 2g IV ordered, Albuterol 10mg INH, Insulin 10 u, Dextrose 25 IV stat ordered, Accu checks
in place. Labs in AM
[2024-04-23] MEDS: CALCIUM GLUCONATE 100 IV (02:57)
[2024-04-23] MEDS: NSS 1000 IV (03:12)
[2024-04-23] MEDS: VENTOLIN NEBULES 10 MG INH (03:13)
[2024-04-23] MEDS: DEXTROSE 50% SYRINGE 25 GRAMS IV (03:14)
[2024-04-23] MEDS: NOVOLIN R 0.1 UNITS IV (03:15)
[2024-04-23 03:16] LABS: Glucose - Point of Care 193 mg/dl (70-99)
[2024-04-23 04:17] LABS: Glucose - Point of Care 233 mg/dl (70-99)
[2024-04-23] MEDS: APRESOLINE IV (04:40)
[2024-04-23 06:23] LABS: Glucose - Point of Care 243 mg/dl (70-99)
[2024-04-23] MEDS: LASIX 80 MG IV ×2 (07:38→16:40)
--- NOTE | 2024-04-23 07:44 | W.PN.HOSP.TC ---
Addendum entered and electronically signed by Shana Cee MD 04/23/24 07:55:
pt morbidly obese by BMI--affects all aspects of care
Original Note:
Today's Communication/Plan
-
transfer to ICU
consult plant maintenance engineer
judd
lasix 80 mg IV now
will need to restart IVF
increase pain meds to Q2
possible tertiary center transfer
Assessment / Plan
Assessment / Plan
pt is a 33 year old male
Acute severe pancreatitis--with leukocytosis likely reactive, worsening with acidosis and KIRTI, transfer to ICU, judd, consider renal consult, apprec GI, MRCP without stones --patient has rare alcohol use if any and CAT scan does not show any
dilated ducts or stones noted in the gallbladder--therefore etiology remains unclear--possibly due to lisinopril--NPO/IVF, pain control increase to Q2H now that going to ICU, Q4H BMP, ions--hold ABX for now per GI, updated at bedside--possible
transfer to tertiary center
Essential hypertension--lisinopril on hold
Gout--allopurinol on hold
ADHD--atomoxetine (Strattera) on hold
Prediabetes--will place on Accu-Cheks with sliding scale coverage, check hemoglobin A1c
Lung nodule--noted on CAT scan--told pt and --will need follow-up as outpatient
DVT prophylaxis
CODE STATUS--full code
Total Critical Care Time 40 minutes. I was immediately available to the patient and staff. I personally examined, reviewed labs, diagnostic images/reports, interpretations, treatment plans, discussed patient care with other providers and family
or caregivers (if patient is unable to make decisions), entered orders as appropriate and documented the medical record.
Anticipated Discharge: > 48 hours
Subjective/Interval History
-
Date of Service: April 23, 2024
called to see patient for increased work of breathing
Objective Data
-
Labs:
Laboratory Results
04/23/24 04/23/24
02:03 06:00
WBC Pending
Hgb Pending
Hct Pending
Plt Count Pending
Sodium 134 L Pending
Potassium 5.6 H Pending
Chloride 109 H Pending
Carbon Dioxide 18 L Pending
BUN 40 H Pending
Creatinine 2.0 H Pending
Glucose 224 H Pending
Calcium 6.6 L* Pending
Total Bilirubin Pending
AST Pending
ALT Pending
Alkaline Phosphatase Pending
Vital Signs:
max temp for 24 hours
04/22/24
23:00
Temp 100.3 F
Vital Signs
Temp Pulse Resp BP Pulse Ox
98.1 F 126 22 133/72 88
04/23/24 03:33 04/23/24 03:33 04/23/24 03:33 04/23/24 03:33 04/23/24 03:33
I&O
04/22/24 04/23/24 04/24/24
06:59 06:59 06:59
Intake Total 2200 / 2200 4260 / 4260
Output Total 950 / 950
Balance 1250 / 1250 4260 / 4260
Review of Systems
-
Unable to obtain full review of systems at this time due to: Acuity
Physical Exam
-
General: Well Developed, Well Nourished, No Apparent Distress and Morbidly Obese
HEENT: Normocephalic, Atraumatic and Oxygen
Respiratory: Decreased Breath Sounds; Negative Non Labored Respirations
Cardiac: Regular Rhythm, S1/S2 and Tachycardic; Negative Murmur
GI: Tender and Distended; Negative Soft (firm) or Normal Bowel Sounds (hypoactive bowel sounds)
Musculoskeletal: No Clubbing, No Cyanosis and No Edema
Psych: Calm
[2024-04-23 07:58] LABS: Glucose - Point of Care 224 mg/dl (70-99)
[2024-04-23] MEDS: NSS (PRESERVATIVE FREE) 10 ML IV (07:59)
[2024-04-23] MEDS: PROTONIX IV 40 MG IV (07:59)
--- NOTE | 2024-04-23 08:08 | PTCARENOTE ---
Pt received from shift supervisor rn RN. While rounding with shift supervisor rn RN pt visibly short of breath and tachypneic with audible wheeze. SpO2 86% on room air. 3L O2 applied via nasal cannula with SpO2 increase to 93%. Dr Cee called to bedside. 80mg
IV Lasix ordered and given. Order for Mckinnon also placed. 16fr Mckinnon inserted. 200mL of dark guy urine in drainage bag after placement. Transfer order placed for pt to go to ICU. Awaiting call back from ANALYSIS MGR to give report at this time. Pt
resting in bed, call poe within reach. at bedside.
[2024-04-23 08:10] LABS: Hematocrit 41.2 % (39.0-52.0); Hemoglobin 14.1 g/dL (13.0-18.0); Mean Corp Hgb Conc. 34.2 g/dL (33.0-37.0); Mean Corpuscular Hgb 29.5 pg (27.0-31.0); Mean Corpuscular Volume 86.2 fL (80.0-94.0); Mean Platelet Volume 10.9 fL (7.4-10.4); Platelet Count 168 10^3/uL (130-400); Red Blood Cell Count 4.78 10^6/uL (4.70-6.10); Red Cell Dist. Width 14.6 % (11.5-14.5); White Blood Cell Count 14.9 10^3/uL (4.8-10.8)
--- NOTE | 2024-04-23 08:27 | CON.INTV ---
Consultation
Consultation Request
Date/Time Consultation Requested: 04/23/24
Date/Time Consultation Performed: 04/23/24
Performing Provider: Rebecca
Reason for Consultation: ICU
Medical History
-
History of Present Illness:
Patient is a 33-year-old male with a past medical history significant for essential hypertension, prediabetes, gout, attention deficit hyperactivity disorder who presented with acute abdominal pain starting day of presentation. CT AP showing acute
pancreatitis with lipase >4000. He has no family history of pancreatitis. He denies any significant alcohol intake. Admitted 04/21/24 and placed on IVFs.
This AM 04/23/24, patient noted to have worsening acidosis, KIRTI, hyperglycemia. Repeat Abd MRI showing possible necrosis. He is transferred to ICU for severe worsening pancreatitis.
at bedside, gives history that he has struggled with weight gain and was being evaluated for weight loss meds. Denies taking Ozempic. He does not follow a low fat diet. Has severe hepatic steatosis.
.
Past Medical History
Past Medical History: Other (see list below)
Social History
Tobacco: Non-smoker
Alcohol: Occasional
Drug: None
Family History
Family History: Reviewed & Not Pertinent
Allergies / Home Medications
Allergies
Allergy/AdvReac Type Severity Reaction Status Date / Time
No Known Allergies Allergy Verified 04/21/24 08:04
Home Medications
�Medication �Instructions �Recorded �Confirmed �Last Taken �Type
allopurinol 100 mg tablet 100 mg PO DAILY Gout 07/25/23 04/21/24 04/20/24 History
atomoxetine 18 mg capsule 18 mg PO DAILY Neurological 07/25/23 04/21/24 04/20/24 History
Condition
lisinopril 10 mg tablet 10 mg PO DAILY Blood Pressure 07/25/23 04/21/24 04/20/24 History
Review of Systems
-
History Source: Patient
All other systems: Negative unless noted
Vitals / Labs / Diagnostic Testing
Vital Signs
Temp Pulse Resp BP Pulse Ox
98.1 F 126 22 156/106 88
04/23/24 03:33 04/23/24 03:33 04/23/24 03:33 04/23/24 07:38 04/23/24 03:33
Lab Data
04/23/24 07:55
Diagnostic Testing:
Physical Exam
-
HEENT: Normocephalic, Anicteric and Moist Mucous Membranes
Cardiovascular: S1/S2 and Regular Rhythm
Respiratory: Clear and Non-Labored Respirations
GI: Soft, Distended and Tender
Neurology: Awake, Alert, Oriented, AO x 3 and No Motor Deficits
Skin: Warm, Dry and Good Color
General: Comfortable and Other (NAD)
Assessment
-
Patient is a 33-year-old male with a past medical history significant for essential hypertension, prediabetes, gout, attention deficit hyperactivity disorder who presented with acute abdominal pain starting day of presentation. CT AP showing acute
pancreatitis with lipase >4000. He has no family history of pancreatitis. He denies any significant alcohol intake. Admitted 04/21/24 and placed on IVFs. This AM 04/23/24, patient noted to have worsening acidosis, KIRTI, hyperglycemia. Repeat Abd MRI
showing possible necrosis. He is transferred to ICU for severe worsening pancreatitis.
Severe acute pancreatitis with possible necrosis
Metabolic acidosis
Hyperglycemia
Severe hepatic steatosis
Hypocalcemia
Elevated LFTs
KIRTI
Leukocytosis
Conditions present FOLDER TIER
Morbid obesity BMI 46.3
Deviated septum and tonsils and adenoids s/p Septoplasty and Coblation adenotonsillectomy 07/29/23
Essential hypertension
Prediabetes
Gout
Attention deficit hyperactivity disorder
Suspect EVERT
Plan
No current signs of metabolic encephalopathy or MS changes/following commands
Pain control
Pain/sedation: Dilaudid PRN
RASS goals: 0
Hemodynamically stable, not requiring pressors.
Cardiac history reviewed--HTN
No prior ECHO for review, obtain new study
IV hydralazine, try labetalol for HR
Monitor on telemetry
Oxygen needs: stable on RA
Prior history of lung disease: none
NO PFT for review
Supplemental O2 as indicated to maintain sats > 89%
CXR/CT reviewed indicating small effusions
Likely has EVERT, sleep study as OP recommended, can try CPAP if needed
NPO, with acute pancreatitis
IVFs noted
GI eval
Imaging reviewed
We discussed low fat diet compliance
Aspiration precautions, HOB > 30 degrees
GI prophylaxis
KIRTI present, renal consult obtained
No history of renal disease
Void trials, frequent labs q4
Follow urine output, critical I/Os
Replete electrolytes as needed--low Ca
Acid/base status: met acidosis noted, IVFs change to bicarb IVFs
WBC noted, will start empiric antibiotics
MRP IV
Will send blood cultures
Follow fever trend, WBC count
CBC stable, no signs of bleeding or coagulopathy.
DVT prophylaxis as assessed based on risk, including mechanical SCDs
Can transfuse if indicated for Hb <7, plt < 10
H/o prediabetes, not on home meds
Will start insulin gtt in setting of pancreatitis
Accu checks q1
HbA1c 6.1
We will follow
Diagnostic Data
Chest X-Ray: 04/23/24- Low lung volumes with small bilateral pleural effusions with or suboptimally evaluated on the current examination and seen better on MRI acquired yesterday. No focal consolidation to suggest pneumonia. No pneumothorax.
CT Scan: AP 04/21/24- Acute interstitial edematous pancreatitis. There is peripancreatic and retroperitoneal fluid, but no drainable fluid collection. Atherosclerotic calcifications involving the visualized coronary arteries and aortobiiliac
vasculature that is greater than expected for a patient of this age. Hepatomegaly and hepatic steatosis. Partially visualized 4.8 mm nodule in the right middle lobe. See below for follow-up guidelines.
Other Chronic/incidental findings as detailed in the body the report.
Abd MRI 04/22/24- There is extensive peripancreatic edema/inflammation consistent with known acute pancreatitis. There is heterogeneous enhancement of the pancreas with apparent hypoenhancement of the body and tail suspicious for necrosis. There is
additional fluid tracking down the secondary retroperitoneum as well as small volume perihepatic and perisplenic free fluid. No discrete collection.
The gallbladder is mildly distended, likely secondary to fasting state. There is no discrete cholelithiasis or choledocholithiasis. Hepatomegaly with hepatic steatosis.
Small bilateral pleural effusions with adjacent atelectasis.
Echo:
PFT's:
Reports and relevant images were personally reviewed.
-----
Critical Care time 65 mins -- The patient is admitted for acute critical illness for the treatment of vital organ failure and/or prevention of further life-threatening conditions. Total care includes time spent in review of history, physical exam,
medications, hemodynamic/ventilator parameters, laboratory data, imaging and discussion with house staff, pharmacy, respiratory therapy, supervisor body assembly, and nursing.
--- NOTE | 2024-04-23 08:53 | W.PN.GI.CBS2 ---
Today's Communication / Plan
-
ICU transfer rest as above in plan
Assessment / Plan
-
33-year-old male with past medical history of ADHD, hypertension and gout presents to the emergency room with acute onset of nausea, vomiting and severe abdominal pain. Asked to evaluate for acute pancreatitis. No new medications, 3 alcoholic
beverages over the weekend, no chronic use. No known gallstones. CAT scan with no gallstones present. WBC 20.8, hemoglobin 16.1, hematocrit 46.2, platelets 191, sodium 138, potassium 3.8, chloride 108, CO2 19, BUN 14, creatinine 1.0, glucose 179,
total bilirubin 1.0, AST 60, ALT 64, alk phos 96, albumin 4.7, lipase greater than 4000. CT of the abdomen pelvis without oral or IV contrast showing gallbladder within normal limits. Pancreas is edematous with surrounding peripancreatic fluid
compatible with acute pancreatitis. There is no peripancreatic fluid collection. Pancreatic parenchyma is relatively uniform. No pancreatic mass or dilatation within the main pancreatic duct.
A/Plan:
first episode of acute pancreatitis most likely related to possible passed gallstone, his triglyceride level is only mildly elevated doubt that is the cause of the pancreatitis and he only has occasional alcohol use.
MRI with MRCP no choledocholithiasis noted severe pancreatitis noted with necrosis in the body and the tail of the pancreas
Discussed with Dr. Cee patient and at length given the severity of pancreatitis will need to move him to ICU and monitor him closely. His labs from last night showed hyperkalemia with acidosis increased glucose and low calcium level was
treated for it his fluids were changed to NSS from lactated Ringer's and nephrology also has been consulted since he also is developing KIRTI. started on Insulin he is also new onset diabetic. get Hb A1c. He also has atelectasis and mild bilateral
pleural effusions encouraged incentive spirometry and he also received a dose of Lasix. Would have a low threshold to transfer him to a tertiary center [place] if he does not improve also discussed with Dr. Aguilar. hold on antibiotics there is no
evidence of infection leukocytosis is reactive he is afebrile sterile necrosis most likely.
Discussed with Dr. Cee she increased his dose for pain medicine
Fatty liver with mildly elevated transaminases continue to trend and can follow-up as outpatient for further workup and possible FibroScan. Will need to try to lose some weight and eat Mediterranean based
Dw at bedside also
Subjective
Subjective
Date of Service: April 23, 2024
Events from overnight noted he had tachycardia and diaphoresis and labs showed hyperkalemia, hypocalcemia, acidosis and KIRTI got Calcium gluconate 2g IV , Albuterol 10mg INH, Insulin 10 u, Dextrose 25 IV and fluids were changed from lactated Ringer's
to normal saline. afebrile
Objective
Data Reviewed
Laboratory Data:
Laboratory Results
04/23/24 07:55
Laboratory Results
Magnesium 1.6 mg/dl (1.6-2.3) 04/23/24 02:03
Total Bilirubin 2.5 mg/dl (0.2-1.3) H D 04/22/24 08:31
AST 115 U/L (17-59) H 04/22/24 08:31
ALT 51 U/L (0-50) H 04/22/24 08:31
Alkaline Phosphatase 51 U/L (38-126) 04/22/24 08:31
Lipase > 4000 U/L (23-300) H* 04/22/24 08:31
Vital Signs and I&O:
Vital Signs
Temp Pulse Resp BP Pulse Ox
98.1 F 126 22 156/106 88
04/23/24 03:33 04/23/24 03:33 04/23/24 03:33 04/23/24 07:38 04/23/24 03:33
I&O
04/22/24 04/23/24 04/24/24
06:59 06:59 06:59
Intake Total 2200 / 2200 4260 / 4260
Output Total 950 / 950
Balance 1250 / 1250 4260 / 4260
04/22/24 MR Abdomen W/o & W Contrast
IMPRESSION:
There is extensive peripancreatic edema/inflammation consistent with known acute pancreatitis. There is heterogeneous enhancement of the pancreas with apparent hypoenhancement of the body and tail suspicious for necrosis. There is additional fluid
tracking down the secondary retroperitoneum as well as small volume perihepatic and perisplenic free fluid. No discrete collection.
The gallbladder is mildly distended, likely secondary to fasting state. There is no discrete cholelithiasis or choledocholithiasis.
Hepatomegaly with hepatic steatosis.
Small bilateral pleural effusions with adjacent atelectasis.
Physical Exam
Physical Exam
Cardiology: Normal Sinus Rhythm and Other (Tachycardic)
Pulmonary: Clear and Other (Decreased breath sounds at bases)
GI: Soft, Non Distended and Tender (Tender in the epigastric area but also has mild diffuse tenderness)
[2024-04-23 08:57] LABS: ALT (SGPT) 43 U/L (0-50); AST (SGOT) 161 U/L (17-59); Albumin 3.8 g/dl (3.5-5.0); Alkaline Phosphatase 42 U/L (38-126); Blood Urea Nitrogen 47 mg/dl (9-20); Calcium 6.7 mg/dl (8.4-10.2); Carbon Dioxide 21 mmol/L (22-30); Chloride 108 mmol/L (98-107); Estimated Creatinine Clearance 65 ml/min; Glucose 240 mg/dl (70-99); Magnesium 1.6 mg/dl (1.6-2.3); Potassium 5.1 mmol/L (3.5-5.1); Sodium 136 mmol/L (135-145); Total Bilirubin 2.8 mg/dl (0.2-1.3); eGFR 33.52
--- NOTE | 2024-04-23 09:00 | PTCARENOTE ---
Rec'd pt in ICU. Pt rec'd A&Ox3. Drowsy. Able to stand and pivot into ICU bed w/ minimal assistance. S1 S2 reg w/ ST (130's) on monitor. +PP. +1 generalized anasarca. Rec'd on 3L N/C..sats 94%. Lungs diminished. Abdomen obese...hypo BS.
Mckinnon draining guy urine w/ sediment. Skin intact except for diaphoretic. 20P LFA. VS documented. Mouth swabs provided. at bedside and fully updated. Call poe within reach.
[2024-04-23] MEDS: SODIUM BICARBONATE 50 MEQ IV (09:01)
[2024-04-23] MEDS: APRESOLINE 10 MG IV (09:20)
--- NOTE | 2024-04-23 09:25 | W.CON.NEPH ---
Consultation
-
Date/Time Consultation Requested: 04/23/2024 9:00 AM
Date/Time Consultation Performed: 04/23/2024 9:15 AM
Requesting Provider: Dr. Cee
Performing Provider: Dr. Parker
Reason for Consultation: Acute kidney injury
Medical History
-
Chief Complaint: Acute kidney injury
History of Present Illness:
The patient is a 33-year-old male with a past medical history of hypertension maintained on lisinopril. He also has a history of ADHD and is maintained on atomoxetine, and allopurinol for gout. He presented to the hospital on April 21, 2024 with
acute abdominal pain. There was associated nausea and vomiting and diarrhea. He was eventually diagnosed with pancreatitis with lipase levels greater than 4000. Over the course of his admission he has become progressively more ill and was also
transferred to the intensive care unit this morning with acute kidney injury. His admission creatinine was 1.0 it is now up to 2.5 and nephrology was asked to see this critically ill patient for acute renal failure.
Past Medical History
Essential hypertension
Prediabetes
Gout
Attention deficit hyperactivity disorder
Past Surgical History: Reports Other
Additional Past Surgical History:
Deviated septum and tonsils and adenoids
Social History
Daily marijuana use
Tobacco: Non-Smoker
Alcohol: None
Family History
No chronic kidney disease
Allergies / Home Medications
Allergy/AdvReac Type Severity Reaction Status Date / Time
No Known Allergies Allergy Verified 04/21/24 08:04
�Medication �Instructions �Recorded �Confirmed �Type
allopurinol 100 mg tablet 100 mg PO DAILY Gout 07/25/23 04/21/24 History
atomoxetine 18 mg capsule 18 mg PO DAILY Neurological 07/25/23 04/21/24 History
Condition
lisinopril 10 mg tablet 10 mg PO DAILY Blood Pressure 07/25/23 04/21/24 History
Review of Systems
-
History Source: Patient
All other systems: Negative unless noted
Constitutional: Fatigue
EENT: No Symptoms
Respiratory: Trouble Breathing
Cardiac: Other (tachy)
Abdomen/GI: Abdominal Pain, Nausea, Vomiting and Diarrhea
: Other (Judd)
Musculoskeletal: No Symptoms
Skin: No Symptoms
Neurological: No Symptoms
Endocrine: No Symptoms
Hematologic/Lymphatic: No Symptoms
Physical Exam
Vital Signs
Vital Signs
Temp Pulse Resp BP Pulse Ox
98.1 F 130 22 166/120 88
04/23/24 03:33 04/23/24 09:20 04/23/24 03:33 04/23/24 09:20 04/23/24 03:33
Lab Results
04/23/24 07:55
WBC 14.9 10^3/uL (4.8-10.8) H 04/23/24 07:55
RBC 4.78 10^6/uL (4.70-6.10) 04/23/24 07:55
Hgb 14.1 g/dL (13.0-18.0) 04/23/24 07:55
Hct 41.2 % (39.0-52.0) 04/23/24 07:55
Plt Count 168 10^3/uL (130-400) 04/23/24 07:55
eGFR 33.52 04/23/24 07:55
Albumin 3.8 g/dl (3.5-5.0) 04/23/24 07:55
Physical Exam
General: AOx1, appears acutely ill, lethargic with rapid breathing, obese
HEENT: PERRL, EOMI, Anicteric, Conjunctivae Clear, Ear/Nose Intact, Hearing Normal, Oropharynx Clear/dry Dentition Intact, Facial Symmetry, Neck Supple, Neck: Trachea Midline, No JVD and No Thyromegaly, no Bruits
Respiratory: Clear to auscultation bilaterally with splinted respiration
Cardiac: S1/S2 and Regular Rate/Rhythm tachycardic
Breast: Deferred by me
Abdomen: Distended tender decreased bowel sounds
Rectal: Deferred by Provider
Genito-urinary: No Costovertebral Tenderness,judd
Extremities: No Clubbing, No Cyanosis and No Edema
Skin: No Rash or open lesions
Neuro: Lethargic and poorly responsive to commands
Hematologic/Lymphatic: No Cervical Lymphadenopathy, No Submandibular Lymphadenopathy and No Supraclavicular Lymphadenopathy
Psych: Lethargic mental status difficult to assess given medicated status
Vascular: plus 2 pedal and radial pulses
Data Reviewed
-
Radiology: Image Personally Visualized and interpreted (CXR: low lung volumes, no chf or PNA) and Report Reviewed by me
Medical Tests (Nuc Med, Echo etc): Other (EFG ST at 135)
Labs: Labs Reviewed by me (Lipase 4000 urinalysis 1+ albumin no blood, BMP)
Old Records: Reviewed (Old creatinine levels reviewed from 08/10/23 creatinine 1.0)
Assessment/Plan
-
Impression:
Acute kidney injury
Acute pancreatitis
Hypocalcemia
History of hypertension
History of gout
Plan:
KIRTI in setting of Pancreatitis
-Maintain Judd catheter ,uop dramatically improved after insertion
-Urinalysis reviewed (1 plus proteinuria)
-Maintain IV fluids in setting of pancreatitis (1/2NS with 75 meq sodium bicarbonate) at 100cc/hr
-Will closely monitor for volume overload
-No obstructive uropathy noted per review of MRI and CAT scan
-repleted Calcium IV ( pancreatitis), replete PRN
-IV hydralazine PRN, can switch to labetalol if this proves not efficacious and tachycardia exacerbates 10mg IV Q4-6hrs
-Patient appears critically ill with worsening renal failure shortness of breath setting of pancreatitis with multiorgan failure
-No acute hemodialysis requirement, ... yet
-45 minutes of critical care time spent with patient
Total Time Spent with Patient (in minutes): 45 minutes
--- NOTE | 2024-04-23 09:37 | CM ---
Patient seen at bedside with physician. Patient transferred to ICU, present and aware. Discharge needs pending medical treatment plan. CM will continue to follow for discharge planning needs.
Plan; home with VN pending functional needs
[2024-04-23] MEDS: NSS IV (09:59)
--- NOTE | 2024-04-23 10:45 | PTCARENOTE ---
Bedside rounds completed. Reviewed plan of care w/ both and . Orders rec'd.
[2024-04-23] MEDS: SODIUM BICARBONATE 1075 MEQ IV ×2 (10:50→17:57)
--- NOTE | 2024-04-23 11:00 | PTCARENOTE ---
VAT at bedside to place PICC per MD orders. and pt's sister fully updated on plan of care.
--- NOTE | 2024-04-23 12:00 | PTCARENOTE ---
CXR done to confirm PICC placement. Labs sent per orders. No major changes in physical assessment since arrival to ICU. Will continue to monitor.
[2024-04-23 12:05] LABS: INR 1.12; PT 14.5 Sec (11.4-14.6)
[2024-04-23 12:06] LABS: APTT 28.3 Sec (23.4-35.0)
[2024-04-23 12:15] LABS: Blood Urea Nitrogen 52 mg/dl (9-20); Calcium 6.5 mg/dl (8.4-10.2); Carbon Dioxide 21 mmol/L (22-30); Chloride 106 mmol/L (98-107); Estimated Creatinine Clearance 68 ml/min; Glucose 247 mg/dl (70-99); Potassium 5.3 mmol/L (3.5-5.1); Sodium 136 mmol/L (135-145)
[2024-04-23] MEDS: NOVOLOG FLEXPEN SC ×2 (12:31→16:34)
[2024-04-23] MEDS: NOVOLIN R INSULIN INFUSION 100 IV (12:38)
[2024-04-23] MEDS: NOVOLIN R 4 UNITS IV (12:39)
--- NOTE | 2024-04-23 12:40 | PTCARENOTE ---
Critical care glycemic protocol initiated. Labs sent at noon and results tiger texted to and . Repeat BMP ordered for 1600.
[2024-04-23] MEDS: DILAUDID 1 MG IV ×5 (12:49→22:14)
--- NOTE | 2024-04-23 12:54 | PN.CDI ---
CDI
- -
CDI:
Physician Documentation Request
Admit Date: 04/21/24 10:45
Dear Doctor Jaye,
Please review the following and provide your response in the progress notes.
Clinical Indicators:
- 04/21 Patient admit for acute pancreatis
- 04/23 PN 'pancreatitis...worsening with acidosis and KIRTI, transfer to ICU'
- 04/23 WBC 14.9, HR 130's, Tmax 100.3, RR 20's
Please clarify which most accurately describes the patient:
SIRS due to a non-infectious source (pancreatitis)
SIRS due to a non-infectious source (pancreatitis) with acute organ failure (KIRTI)
Other
Use of terms such as suspected, likely, concern for, or probable (associated with a specific diagnosis that is being evaluated, monitored, or treated as if it exists) are acceptable and can be coded in the inpatient setting, when documented at the
time of discharge.
Thank you,
Keith Ly RN
CDI Specialist
Please use your independent medical judgment in providing your response.
[2024-04-23] MEDS: ZOFRAN 4 MG IV ×2 (12:55→23:09)
[2024-04-23] MEDS: TRANDATE 10 MG IV ×2 (12:58→17:37)
[2024-04-23] MEDS: STERILE WATER FOR INJECTION 10 ML IV ×2 (12:59→17:49)
[2024-04-23] MEDS: MERREM 500 MG IV ×2 (12:59→17:50)
[2024-04-23 13:44] LABS: Glucose - Point of Care 212 mg/dl (70-99)
[2024-04-23 14:42] LABS: Glucose - Point of Care 208 mg/dl (70-99)
[2024-04-23] MEDS: LOPRESSOR 5 MG IV ×2 (14:58→19:51)
--- NOTE | 2024-04-23 15:00 | PTCARENOTE ---
SVT noted on monitor up to 220's. aware and at bedside. ECG done. Pt unable to change rate w/ coughing and bearing down. 5mg IV lopressor given per orders. Pt diaphoretic but denying chest pain. Labs sent. BP decreased w/ lopressor
administration. MD's aware. Cardiology consulted. Echo ordered.
[2024-04-23] MEDS: CARDIZEM 125 IV ×2 (15:03→20:11)
[2024-04-23 15:53] LABS: Glucose - Point of Care 185 mg/dl (70-99)
[2024-04-23 15:53] LABS: Blood Urea Nitrogen 54 mg/dl (9-20); Calcium 6.3 mg/dl (8.4-10.2); Carbon Dioxide 24 mmol/L (22-30); Chloride 105 mmol/L (98-107); Estimated Creatinine Clearance 74 ml/min; Glucose 215 mg/dl (70-99); Magnesium 1.8 mg/dl (1.6-2.3); Phosphorus 2.2 mg/dl (2.5-4.5); eGFR 39.08
[2024-04-23 16:05] LABS: Troponin I 0.086 ng/ml
[2024-04-23 16:05] LABS: Potassium 4.5 mmol/L (3.5-5.1); Sodium 138 mmol/L (135-145)
--- NOTE | 2024-04-23 16:07 | CON.CAR ---
Addendum entered and electronically signed by Bebeto Edwards MD 04/23/24 17:59:
I saw and examined the patient.
The Sql Ssrs Developer's note was reviewed and I agree with the note.
Comment:
GEN: No distress, awake, Ox3
HEENT: supple, anicteric, mmm
LUNGS: dec Bs at bases
CV: Reg, tachy, S1/S2, 1/6 syst LSB, no gallop
ABD: soft, BS+, NT/ND
EXT: No edema
NEURO: Gross non-focal
SKIN: No rash
PLan:
28-year-old male with past medical history of hypertension presents today as a possible with acute abdominal pain and pancreatitis. He has been hospitalized for 48 hours. He has been getting aggressive IV fluids for his acute pancreatitis. He
also has new acute renal failure. Today he had an episode of supraventricular tachycardia with heart rates in the 220 range. He was given Lopressor 5 mg IV and ultimately converted back into sinus tachycardia. His resting heart rate has been in
the 100 to 130 bpm range. Currently he is resting in bed with mild distress due to fevers and abdominal pains.
Echocardiogram today reveals preserved ejection fraction with no significant valve disease.
He had an episode of SVT in the setting of fever and pancreatitis. start IV labetalol as he is unable to tolerate any oral medications.
Continue to monitor on telemetry. He is somewhat volume overloaded as his weight is up 15 pounds since hospitalization. Agree with IV Lasix x 1 now. He likely will need continued diuresis with his aggressive fluid replacement.
Continue to follow creatinine closely. If his blood pressure drops lower he may need pressor support. His blood pressure has been very labile.
Will follow his troponin is mildly abnormal at 0.086. I suspect this is a nonmyocardial ischemic injury. Continue to trend.
ECG during SVT had mild ST depressions so I would not be surprised if his troponin continues to climb.
Original Note:
Consultation
Consultation Request
Date/Time Consultation Requested: 04/23/24
Date/Time Consultation Performed: 04/23/24
Requesting Provider: Dr. Cee
Performing Provider: Dr. Edwadrs
Reason for Consultation: SVT
Medical History
-
History of Present Illness:
Patient came to [facility] Saturday morning with abdominal pain and is now admitted with pancreatitis and cardiology has been consulted for an episode of SVT earlier today. Patient reports increased stress in the last 3-4 weeks and with this he was feeling
more tired and SOB going up a flight of stairs in his home. 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
the ground and call for help. He was brought to [facility] and CT abd/pelvis showed acute pancreatitis. Patient was admitted and has been receiving IVFs. GI consult is ongoing for trying to determine a cause. Patient has been NPO and his outpatient dose
of lisinopril was held for NPO and also as a possible cause of pancreatitis. He has been receiving hydralazine 10 mg IV q 4 hours and also a single dose of labetalol 10 mg IV x1 earlier today around noon. Patient with increased SOB and hypoxia this
morning and he was given Lasix 80 mg IV x1 and eventually moved to ICU. Cardiology was consulted for an episode of SVT. Abrupt onset with HR up to 226 bpm and patient symptomatic with lightheadedness and diaphoresis. Patient had trouble with vagal
maneuvers and he was given Lopressor 5 mg IV x1 resulting in hypotension and then he converted back to his previous sinus tachycardia rhythm. Patient reports previous intermittent palpitations, but he has never had an episode like this before.
PMH:
HTN
Prediabetes, HgbA1c 6.1%
ADHD on atomoxetine prior to admission
Daily marijuana smoker/vaper
Previous tobacco smoker
Past Medical History
Past Medical History: Other (in HPI)
Past Surgical History: Tonsilectomy
Social History
Tobacco: Former Smoker (smoked tobacco about age 10 to about age 23. Now smokes/vapes marijuana a couple times a day)
Alcohol: Other (rare alcohol, less than once a week)
Drug: Marijuana
Personal:
Living: With Family
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
Family History
Family History: Other (father with h/o PCI and CVA at age 53, grandmother with heart arrhythmia)
Allergies / Home Medications
Allergy/AdvReac Type Severity Reaction Status Date / Time
No Known Allergies Allergy Verified 04/21/24 08:04
�Medication �Instructions �Recorded �Confirmed �Type
allopurinol 100 mg tablet 100 mg PO DAILY Gout 07/25/23 04/21/24 History
atomoxetine 18 mg capsule 18 mg PO DAILY Neurological 07/25/23 04/21/24 History
Condition
lisinopril 10 mg tablet 10 mg PO DAILY Blood Pressure 07/25/23 04/21/24 History
Review of Systems
-
History Source: Patient and Family (sister and bedside helping with HPI)
All other systems: Negative unless noted
Physical Exam
Vital Signs
Temp Pulse Resp BP Pulse Ox
100.4 F H 123 23 145/99 92
04/23/24 15:15 04/23/24 16:00 04/23/24 16:00 04/23/24 15:15 04/23/24 16:00
GEN: Dyspneic, ill appearing, AAOx3
HEENT: EOMI, MMM
LUNGS: Dyspneic with conversation. Wearing oxygen at 3 L NC. Tachypneic, no wheeze
CV: Sinus tachycardia, S1/S2, no murmur
ABD: soft, BS+, NT, ND
EXT: +PT pulses B/L. No clubbing, cyanosis, lesions or edema B/L
NEURO: Gross non-focal
SKIN: Warm, dry and pink. No rash
Lab Results
04/23/24 07:55
08/15/24 23:55
Troponin I 0.086 ng/ml H* 04/23/24 15:19
Impression / Plan
-
PCP: Dr. Padron
Cardiology: None
Impression:
Admitted with acute pancreatitis 04/21/24
SVT
Severe acute pancreatitis with possible necrosis
Severe hepatic steatosis
Elevated LFTs
Acute HFpEF
HTN
Prediabetes, HgbA1c 6.1%
ADHD on atomoxetine prior to admission
Daily marijuana smoker/vaper
Previous tobacco smoker
Echo 04/23/24: Study pending
Plan:
-Patient came to [facility] Saturday morning with abdominal pain and is now admitted with pancreatitis and cardiology has been consulted for an episode of SVT earlier today. Patient reports increased stress in the last 3-4 weeks and with this he was
feeling more tired and SOB going up a flight of stairs in his home. 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
lay on the ground and call for help. He was brought to [facility] and CT abd/pelvis showed acute pancreatitis. Patient was admitted and has been receiving IVFs. GI consult is ongoing for trying to determine a cause. Patient has been NPO and his outpatient
dose of lisinopril was held for NPO and also as a possible cause of pancreatitis. He has been receiving hydralazine 10 mg IV q 4 hours and also a single dose of labetalol 10 mg IV x1 earlier today around noon. Patient with increased SOB and hypoxia
this morning and he was given Lasix 80 mg IV x1 and eventually moved to ICU. Cardiology was consulted for an episode of SVT. Abrupt onset with HR up to 226 bpm and patient symptomatic with lightheadedness and diaphoresis. Patient had trouble with
vagal maneuvers and he was given Lopressor 5 mg IV x1 resulting in hypotension and then he converted back to his previous sinus tachycardia rhythm. Patient reports previous intermittent palpitations, but he has never had an episode like this before.
-Check urgent bedside echo now, called echo dept and they are on their way now
-ECGs reviewed by me show SVT and tele now shows sinus tachycardia.
-He is strictly NPO. Will add labetalol 10 mg IV q 6 hours.
-Nursing reports patient also tolerated hydralazine 10 mg IV q 4 hours so if additional BP control is needed then would add back
-Initial Troponin undetectable and now up to 0.086. This is likely a nonischemic myocardial injury Troponin elevation. Will trend and look for any WMA on echo.
-Check TSH
-Patient has received 10 L IVFs this admission. Weight is up 7 lbs despite being NPO. Suspect patient is volume overloaded. Lasix 80 mg IV x1 now ordered. Consider decreasing IVF rates.
-KIRTI with Cre up to 2.5 this morning. Nephrology following and Cre improved to 2.2 on recheck labs this afternoon following Lasix 80 mg IV x1 and Mckinnon cath being placed.
-Eventual outpatient stress test given risk factors including smoker, prediabetes
--- NOTE | 2024-04-23 16:10 | W.PN.UPDATE ---
Update Note
Progress Note Update
Update:
Evaluated patient at bedside for tachycardia, acute onset
HR costa to >225, with associated diaphoresis, BP increased to 160s
Given 5mg lopressor IV x 1, started briefly on diltazem which was held due to hypotension, in 80s
After a period of several mins returned to HR 130s, BP 140s.
Cards eval obtained in the interim
Care team updated
--
Additional CC time 45 mins (total >100mins).
--- NOTE | 2024-04-23 16:15 | PTCARENOTE ---
Pt remains on insulin gtt per ordered protocol. Remains on 3L N/C...sats 92%. Encouraged coughing, deep breathing and use of IS. No major changes in physical assessment. VS documented. Call poe within reach. Family at bedside.
--- NOTE | 2024-04-23 16:48 | CARDSERVLU ---
Echocardiogram with Lumason completed after protocol screening completed. Allergies verified.
Patent IV site: __rac___
IV site flushed with 0.9% NaCl pre and post administration.
Diluted bolus method utilized to enhance visualization of ventricular pimentel.
Total volume given: __5__ mL
Patient tolerated all procedures well without complications.
[2024-04-23 16:51] LABS: Glucose - Point of Care 147 mg/dl (70-99)
[2024-04-23 17:00] LABS: Lipase > 4000 U/L (23-300)
[2024-04-23] MEDS: LOVENOX 40 MG SC (17:37)
--- NOTE | 2024-04-23 17:40 | W.PN.UPDATE ---
Update Note
Progress Note Update
Discussed case with cardiology
Patient is apparently up 10 L and weight is up 7kg
Okay to continue IV Lasix intermittently
Repleted calcium IV
Will provide lower dose maintenance IV fluids as patient n.p.o.
[2024-04-23] MEDS: CALCIUM GLUCONATE 10% INJECTION 290 MG IV (17:41)
[2024-04-23 17:42] LABS: Glucose - Point of Care 148 mg/dl (70-99)
[2024-04-23 17:47] LABS: TSH Reflex To Free T4 0.65 uIU/ml (0.47-4.68)
[2024-04-23 18:38] LABS: Glucose - Point of Care 137 mg/dl (70-99)
[2024-04-23] MEDS: MAGNESIUM SULFATE 100 IV (20:04)
[2024-04-23 20:07] LABS: Glucose - Point of Care 143 mg/dl (70-99)
[2024-04-23 20:20] LABS: Blood Urea Nitrogen 53 mg/dl (9-20); Calcium 7.1 mg/dl (8.4-10.2); Carbon Dioxide 27 mmol/L (22-30); Chloride 106 mmol/L (98-107); Estimated Creatinine Clearance 74 ml/min; Glucose 153 mg/dl (70-99); Potassium 4.3 mmol/L (3.5-5.1); Sodium 139 mmol/L (135-145); eGFR 39.08
--- NOTE | 2024-04-23 20:24 | PTCARENOTE ---
Received pt via handoff. AOx3, diaphoretic c/o lower abdominal and back pain. Sinus tach with trace edema on all extremities, positive pedal pulses on all extremities. 3 Liters NC, clear upper bilaterally, diminished lower, non productive cough and
SOB. Hypoactive bowel sounds in all four quadrants. Mckinnon catheter in place, clear and yellow urine. Right DL PICC and left FA 20G patent with continuous gtts running see worklist. Safe environment maintained. Family at bedside.
[2024-04-23 20:30] LABS: Troponin I 0.076 ng/ml
[2024-04-23 22:09] LABS: Glucose - Point of Care 125 mg/dl (70-99)
--- NOTE | 2024-04-23 23:08 | W.PN.UPDATE ---
Update Note
Progress Note Update
Refractory SVT overnight, started patient on diltiazem drip. Brief run of SVT since patient started on diltiazem drip.
[2024-04-23] MEDS: SODIUM PHOSPHATE 255 MEQ IV (23:26)
--- NOTE | 2024-04-23 23:40 | PTCARENOTE ---
Patient went into long runs of SVT (220's), Cardizem gttp started, titrating per work order. Pt SOB on exertion and at rest. Oxygen at 4L 92%. TRENTON Conway made aware.
[2024-04-24] VITALS (38 sets, daily range): BP systolic 150–205; BP diastolic 72–138; BMI 45.9; BMI 46.0
[2024-04-24] MEDS: MERREM 500 MG IV ×4 (00:19→18:06)
[2024-04-24] MEDS: STERILE WATER FOR INJECTION 10 ML IV ×4 (00:19→18:06)
[2024-04-24] MEDS: DILAUDID 1 MG IV ×11 (00:20→23:06)
[2024-04-24 00:43] LABS: Glucose - Point of Care 122 mg/dl (70-99)
[2024-04-24 02:26] LABS: Glucose - Point of Care 115 mg/dl (70-99)
[2024-04-24 03:39] LABS: Hemoglobin 12.5 g/dL (13.0-18.0); Mean Corp Hgb Conc. 34.7 g/dL (33.0-37.0); Mean Corpuscular Hgb 29.2 pg (27.0-31.0); Mean Corpuscular Volume 84.1 fL (80.0-94.0); Mean Platelet Volume 10.6 fL (7.4-10.4); Platelet Count 150 10^3/uL (130-400); Red Blood Cell Count 4.28 10^6/uL (4.70-6.10); White Blood Cell Count 14.6 10^3/uL (4.8-10.8)
[2024-04-24 03:44] LABS: Glucose - Point of Care 144 mg/dl (70-99)
[2024-04-24 04:03] LABS: Blood Urea Nitrogen 46 mg/dl (9-20); Calcium 6.5 mg/dl (8.4-10.2); Carbon Dioxide 25 mmol/L (22-30); Chloride 109 mmol/L (98-107); Estimated Creatinine Clearance 102 ml/min; Glucose 148 mg/dl (70-99); Magnesium 2.1 mg/dl (1.6-2.3); Phosphorus 2.7 mg/dl (2.5-4.5); Potassium 4.1 mmol/L (3.5-5.1); Sodium 141 mmol/L (135-145); eGFR 57.27
[2024-04-24 04:04] LABS: IgG Subclass 4 31 mg/dL (1-123)
[2024-04-24] MEDS: CALCIUM GLUCONATE 290 MG IV (05:04)
[2024-04-24 05:19] LABS: Glucose - Point of Care 152 mg/dl (70-99)
[2024-04-24] MEDS: NOVOLIN R INSULIN INFUSION 100 IV ×2 (06:01→22:16)
[2024-04-24 06:23] LABS: Glucose - Point of Care 147 mg/dl (70-99)
[2024-04-24] MEDS: ZOFRAN 4 MG IV (06:32)
--- NOTE | 2024-04-24 07:24 | W.PN.INTV ---
Today's Communication / Plan
Recommendations
SVT noted overnight, on Dilt
Can d/c PICC line if contributing and replace with midline
Repeat labs
Add nebs TID for wheezing
Culture pending, MRP continued but likely can d/c if negative
Advance diet to clears
Consideration for repeat CT to evaluate if necrosis present
Assessment
-
Patient is a 33-year-old male with a past medical history significant for essential hypertension, prediabetes, gout, attention deficit hyperactivity disorder who presented with acute abdominal pain starting day of presentation. CT AP showing acute
pancreatitis with lipase >4000. He has no family history of pancreatitis. He denies any significant alcohol intake. Admitted 04/21/24 and placed on IVFs. This AM 04/23/24, patient noted to have worsening acidosis, KIRTI, hyperglycemia. Repeat Abd MRI
showing possible necrosis. He is transferred to ICU for severe worsening pancreatitis.
Severe acute pancreatitis with possible necrosis
Metabolic acidosis
Hyperglycemia
Severe hepatic steatosis
Hypocalcemia
Elevated LFTs
KIRTI
Leukocytosis
Wheezing
SVT
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
Morbid obesity BMI 46.3
Deviated septum and tonsils and adenoids s/p Septoplasty and Coblation adenotonsillectomy 07/29/23
Essential hypertension
Prediabetes
Gout
Attention deficit hyperactivity disorder
Suspect EVERT
Plan
No current signs of metabolic encephalopathy or MS changes/following commands
Pain control
Pain/sedation: Dilaudid PRN
RASS goals: 0
Hemodynamically stable, not requiring pressors.
Cardiac history reviewed--HTN/now on Dilt gtt for SVT
Cards eval
No prior ECHO for review, obtain new study--normal
On Dilt gtt
Monitor on telemetry
Oxygen needs: stable on RA
Prior history of lung disease: none
No PFT for review
Supplemental O2 as indicated to maintain sats > 89%
CXR/CT reviewed indicating small effusions
Likely has EVERT, sleep study as OP recommended, can try CPAP if needed
Add nebulizer TID
NPO, with acute pancreatitis--start clears today
IVFs noted
GI eval
Imaging reviewed
We discussed low fat diet compliance
Aspiration precautions, HOB > 30 degrees
GI prophylaxis
May need repeat CT scan to eval for necrosis
MRP ongoing, can likely stop if culture are negative
KIRTI present, renal following
No history of renal disease
Void trials, frequent labs q4
Follow urine output, critical I/Os
Replete electrolytes as needed--low Ca
Acid/base status: met acidosis noted, IVFs
Repeat labs-lipase/ESR/CRP
WBC noted, MRP IV
Cultures pending
Follow fever trend, WBC count
CBC stable, no signs of bleeding or coagulopathy.
DVT prophylaxis as assessed based on risk, including mechanical SCDs
Can transfuse if indicated for Hb <7, plt < 10
H/o prediabetes, not on home meds
Continue insulin gtt in setting of pancreatitis
Accu checks q1
HbA1c 6.1
Eventual transition to SQ if improving
Diagnostic Data
Chest X-Ray: 04/23/24- Low lung volumes with small bilateral pleural effusions with or suboptimally evaluated on the current examination and seen better on MRI acquired yesterday. No focal consolidation to suggest pneumonia. No pneumothorax.
CT Scan: AP 04/21/24- Acute interstitial edematous pancreatitis. There is peripancreatic and retroperitoneal fluid, but no drainable fluid collection. Atherosclerotic calcifications involving the visualized coronary arteries and aortobiiliac
vasculature that is greater than expected for a patient of this age. Hepatomegaly and hepatic steatosis. Partially visualized 4.8 mm nodule in the right middle lobe. See below for follow-up guidelines.
Other Chronic/incidental findings as detailed in the body the report.
Abd MRI 04/22/24- There is extensive peripancreatic edema/inflammation consistent with known acute pancreatitis. There is heterogeneous enhancement of the pancreas with apparent hypoenhancement of the body and tail suspicious for necrosis. There is
additional fluid tracking down the secondary retroperitoneum as well as small volume perihepatic and perisplenic free fluid. No discrete collection.
The gallbladder is mildly distended, likely secondary to fasting state. There is no discrete cholelithiasis or choledocholithiasis. Hepatomegaly with hepatic steatosis.
Small bilateral pleural effusions with adjacent atelectasis.
Echo:
PFT's:
Reports and relevant images were personally reviewed.
-----
Critical Care time 35 mins -- The patient is admitted for acute critical illness for the treatment of vital organ failure and/or prevention of further life-threatening conditions. Total care includes time spent in review of history, physical exam,
medications, hemodynamic/ventilator parameters, laboratory data, imaging and discussion with house staff, pharmacy, respiratory therapy, section repairer, and nursing.
Subjective Dataa
Subjective Data
Date of Service:
Date of Service: April 24, 2024
Chief Complaint: General Practice Follow Up
Subjective:
SVT noted overnight, now on dilt gtt
still having abd pain, SOB
Review of Systems
General: Sweats
Cardiopulmonary: Wheezing
GI: Abdominal Pain
Objective Data
Data Reviewed
Vital Signs / I&O / Oxygen:
Vital Signs
Temp Pulse Resp BP Pulse Ox
99.1 F 99 26 161/72 90
04/24/24 05:40 04/24/24 06:35 04/24/24 06:35 04/24/24 06:35 04/24/24 02:15
Intake and Output
04/23/24 04/24/24 04/25/24
06:59 06:59 06:59
Intake Total 4260 / 4260 3194.0 / 3194.0
Output Total 3875 / 3875
Balance 4260 / 4260 -681.0 / -681.0
SaO2 90
Nasal Cannula flow liters per 4
minute
Physical Exam
General: Pain and Other (NAD)
HEENT: Normocephalic, Anicteric and Moist Mucous Membranes
Cardiovascular: S1-S2, Regular Rhythm and Peripheral Edema
Respiratory: Wheeze and Non-Labored Respirations
GI: Soft, Non Distended and Tender
Neurology: Awake, Alert, Oriented, AO x 3 and No Motor Deficits
Skin: Warm, Dry and Good Color
Labs/Micro/Reports
Lab Data
04/24/24 03:33
04/24/24 03:33
Laboratory Results
04/23/24
11:37
PT 14.5
INR 1.12
APTT 28.3
[2024-04-24] MEDS: NOVOLOG FLEXPEN SC ×3 (07:53→16:29)
[2024-04-24 07:58] LABS: Glucose - Point of Care 105 mg/dl (70-99)
--- NOTE | 2024-04-24 08:52 | CM ---
Patient seen at bedside with physician and patient , sister. Patient plan for eventual discharge is home with family and possible VN pending functional status. Patient concerned with possible billing and aware that she can reach out to
billing to discuss options if needed. CM will continue to follow for discharge planning needs.
Plan; home with VN vs home with no needs; pending functional status.
--- NOTE | 2024-04-24 08:52 | W.PN.HOSP.TC ---
Today's Communication/Plan
-
follow labs
supportive care
apprec all consultants' input
Assessment / Plan
Assessment / Plan
pt is a 33 year old male
SIRS due to Acute severe pancreatitis--with leukocytosis likely reactive, improving acidosis and KIRTI, cont judd, apprec renal/GI/social service coordinator/cards, MRCP without stones --patient has rare alcohol use if any and CAT scan does not show any dilated
ducts or stones noted in the gallbladder--therefore etiology remains unclear--possibly due to lisinopril--NPO/IVF, pain control Q2H --hold ABX for now per GI, meropenem started by social service coordinator
SVT--started 04/23--apprec cards--now on cardizem drip--ECHO WNL
acute hypoxemic resp insufficiency--requiring O2 now--very SOB with movement--check daily CXR--concern for developing ARDS.....
Essential hypertension--lisinopril on hold
Gout--allopurinol on hold
ADHD--atomoxetine (Strattera) on hold
Prediabetes--will place on Accu-Cheks with sliding scale coverage, check hemoglobin A1c
Lung nodule--noted on CAT scan--told pt and --will need follow-up as outpatient
morbid obesity -- BMI 45.9--apprec dietary
DVT prophylaxis
CODE STATUS--full code
Total Critical Care Time 32 minutes. I was immediately available to the patient and staff. I personally examined, reviewed labs, diagnostic images/reports, interpretations, treatment plans, discussed patient care with other providers and family
or caregivers (if patient is unable to make decisions), entered orders as appropriate and documented the medical record.
Anticipated Discharge: > 48 hours
Subjective/Interval History
-
Date of Service: April 24, 2024
pt very SOB with any movement--RR increases, HR increases
Objective Data
-
Labs:
Laboratory Results
08/16/24 08/16/24
03:33 12:00
WBC 14.6 H
Hgb 12.5 L
Hct 36.0 L
Plt Count 150
Sodium 141 Pending
Potassium 4.1 Pending
Chloride 109 H Pending
Carbon Dioxide 25 Pending
BUN 46 H Pending
Creatinine 1.6 H Pending
Glucose 148 H Pending
Calcium 6.5 L* Pending
Vital Signs:
max temp for 24 hours
04/23/24
15:15
Temp 100.4 F H
Vital Signs
Temp Pulse Resp BP Pulse Ox
99.1 F 99 26 161/72 90
04/24/24 05:40 04/24/24 06:35 04/24/24 06:35 04/24/24 06:35 04/24/24 02:15
I&O
04/23/24 04/24/24 04/25/24
06:59 06:59 06:59
Intake Total 4260 / 4260 3194.0 / 3194.0
Output Total 3875 / 3875
Balance 4260 / 4260 -681.0 / -681.0
Review of Systems
-
Unable to obtain full review of systems at this time due to: Acuity
Physical Exam
-
General: Respiratory Distress (with any movement) and Morbidly Obese
HEENT: Normocephalic, Atraumatic and Oxygen
Respiratory: Decreased Breath Sounds (all lung armstrong)
Cardiac: Regular Rhythm, S1/S2 and Tachycardic
GI: Tender and Distended; Negative Soft (firm) or Normal Bowel Sounds (hypoactive)
Genito-urinary: Judd
Musculoskeletal: No Clubbing, No Cyanosis and No Edema
Neuro: Awake
[2024-04-24] MEDS: NSS (PRESERVATIVE FREE) 10 ML IV (08:54)
[2024-04-24] MEDS: PROTONIX IV 40 MG IV (08:54)
--- NOTE | 2024-04-24 09:00 | PTCARENOTE ---
Assumed care of pt at 0715 following shift report. Pt received on Glycemic protocol w/ Insulin gtt infusing per protocol, Cardizem at 7.5mg/hr and IVF at 70ml/hr. Pt on O2 at 4l/min via NC w/ POx 90%- O2 increased to 6l/min w/ POx improved to 92%.
Pt appears SOB/tachypneic w/ breath sounds diminished in bilateral bases and scattered expiratory wheezes bilaterally throughout. Reinforced use of IS with pt and instructed in correct techniques and recommended frequency- Pt pulling 1000ml. Pt's
and sister attentive at bedside and encouraging pt to increase frequency of use. Pt's present condition/plan of care reviewed w/ pt and family present in room- questions answered and emotional support provided. Physical assessment completed as
documented. Pt c/o nausea- not due yet for Zofran- comfort care provided. Pt passing small loose indu stools on bedpan. Assisted w/ hygiene needs. Titrating Cardizem gtt per ordered parameters. Pt medicated for reported lower abdominal and back pain
-see MAR for times and dosages. Call deepika w/in pt reach and safe environment maintained.
--- NOTE | 2024-04-24 10:01 | PN.DE.MGMTRT ---
Insulin Management
- -
04/24/2024 Diabetes Management Consult
Patient admitted 04/21 with abdominal pain, acute pancreatitis. No PMH. A1C on admission 6.1%, cr trended up to 2.5, eGFR 33.52, now cr 1.6, eGFR 57.27.
Patient glucose trended up to the 200's, has been started on glycemic protocol. Currently requiring 4 to 6 units of insulin per hour. Will continue with glycemic protocol.
Patient is awake alert and oriented, tachypneic, O2 via nc on.
Discussed plan and Q 1 to 2 hour accuchecks with patient and family all in agreement. Discussed with nurse.
Diabetes History
- -
Pre-Admission Diabetes Regimen
04/23/24 04/23/24 04/23/24
11:37 15:20 19:57
Creatinine 2.4 H 2.2 H 2.2 H
04/24/24
03:33
Creatinine 1.6 H
Lab Results
Hemoglobin A1c 6.1 % (4.0-5.6) H 04/22/24 08:31
Insulin Pump Settings
IP Diabetes Regimen
04/23/24 04/23/24 04/23/24
11:37 13:33 14:31
Glucose 247 H
POC Glucose 212 H 208 H
04/23/24 04/23/24 04/23/24
15:20 15:41 16:40
Glucose 215 H
POC Glucose 185 H 147 H
04/23/24 04/23/24 04/23/24
17:30 18:27 19:55
Glucose
POC Glucose 148 H 137 H 143 H
04/23/24 04/23/24 04/24/24
19:57 21:56 00:32
Glucose 153 H
POC Glucose 125 H 122 H
04/24/24 04/24/24 04/24/24
02:14 03:33 05:07
Glucose 148 H
POC Glucose 115 H 144 H 152 H
04/24/24 04/24/24
06:11 07:47
Glucose
POC Glucose 147 H 105 H
Patient Education
[2024-04-24 10:16] LABS: Glucose - Point of Care 143 mg/dl (70-99)
--- NOTE | 2024-04-24 10:32 | W.PN.NEPH.PH ---
Today's Communication / Plan
-
cont IVF
Assessment/Plan
-
Impression:
Acute kidney injury
Acute pancreatitis
Hypocalcemia
History of hypertension
History of gout
Plan:
KIRTI in setting of Pancreatitis, prerenal
cr improving today and good response to diuretics
would maintain Judd catheter still
-Urinalysis reviewed (1 plus proteinuria)
hyperglycemia on insulin gtt, A1c 6.1
would cont IVF, likely change to LR later based on labs
wts are improving, prn lasix
-repleted Calcium IV ( pancreatitis), replete PRN
-frequent SVTs on cardizem gtt per cards and IV bb
Patient appears critically ill with pancreatitis and multiorgan failure
dose meds for changing GFR
CC time spent 31 min
d/w pt family and nursign
d/w ICU
-
-
Date of Service: April 24, 2024
CC / HPI / ROS
-
Chief Complaint:
KIRTI, multiple lytes abnormalities
History of Present Illness:
cr improving to 16, grossly non oligiric with judd and diuretics
BP high on cardizem gtt for SVTS
CXR shallow lungs
wt decreasing
prabhakar low 6.5
Review of Systems:
Labs
-
Labs:
WBC 14.6 10^3/uL (4.8-10.8) H 04/24/24 03:33
RBC 4.28 10^6/uL (4.70-6.10) L 04/24/24 03:33
Hgb 12.5 g/dL (13.0-18.0) L 04/24/24 03:33
Hct 36.0 % (39.0-52.0) L 04/24/24 03:33
Plt Count 150 10^3/uL (130-400) 04/24/24 03:33
eGFR 57.27 04/24/24 03:33
Phosphorus 2.7 mg/dl (2.5-4.5) 04/24/24 03:33
Albumin 3.8 g/dl (3.5-5.0) 04/23/24 07:55
Physical Exam
-
Vital Signs:
Vital Signs
Temp Pulse Resp BP Pulse Ox
99.1 F 99 26 161/72 90
04/24/24 05:40 04/24/24 06:35 04/24/24 06:35 04/24/24 06:35 04/24/24 02:15
Cardiovascular:: Regular rate and rhythm (tachy)
Respiratory:: Bilateral: CTA (decreased)
Lung Excursion:: Abnormal
Abdomen:: Soft
Extremity Edema:: None: Bilateral:
Judd Catheter: Yes
--- NOTE | 2024-04-24 10:45 | VATNOTE ---
Pt having ectopy when turning on his side, pt believes it is related to pain due to his pancreatitis. Upon insertion, PICC in CAJ, retracted to 2 cm nathanael to make sure ectopy is not related to PICC placement.
--- NOTE | 2024-04-24 11:00 | W.PN.CARDCBS ---
Today's Communication / Plan
-
Suspect arrhythmia may relate to PICC placement
Will discuss with radiology
Await proBNP
Probable diuretics
Impression / Plan
-
PCP: Dr. Padron
Cardiology: None
Impression:
Admitted with acute pancreatitis 04/21/24
SVT, suspect due to catheter in the right atrium
Severe acute pancreatitis with possible necrosis
Severe hepatic steatosis
Elevated LFTs
Acute HFpEF, suspected
HTN
Prediabetes, HgbA1c 6.1%
ADHD on atomoxetine prior to admission
Daily marijuana smoker/vaper
Previous tobacco smoker
Echo 04/23/24: Study pending
Plan:
He had another brief episode of SVT when he turned over, this resolved when he resumed the supine position. His nurse Pratibha points out that his PICC line was placed and that SVT began after that. Review of x-rays show that PICC line is probably in
the right atrium, and could be the cause of his SVT. IV team has been called, he will need to have his line pulled back to the point where PICC line tip is in the SVC.
His echocardiogram shows a normal EF without significant valvular heart disease. Right heart is normal, could not determine pulmonary artery systolic pressure.
He remains with sinus tachycardia. This is a manifestation of his pancreatitis and severe hemodynamic stress. We can taper off diltiazem.
proBNP is pending. Consider furosemide if substantially elevated.
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
Subjective
Date of Service: April 24, 2024:
PMH/PSH/SH/FH: Reviewed
Allergies none
Allopurinol 100 mg a day, atomoxetine, lisinopril 10 mg a day
PMH/PSH/FH/SH: Reviewed
Allergies: None
Outpatient medications: Allopurinol 100 mg a day, atomoxetine 18 mg a day, lisinopril 10 mg a day
Current medications: Lovenox 40 mg a day, pantoprazole 40 IV, insulin, meropenem, labetalol 10 IV every 6, IV diltiazem
ROS: Negative except as above
161/72, pulse 99, respirate 26, 37.3, intake and output -0.8 L, weight is 157.9 kg, was 159.2 kg, on admission was 146.9 kg, tachypneic, head neck exam unremarkable, breath sounds diminished, tachycardic without murmur, abdomen obese tender,
extremities with edema
White count 14.6, hemoglobin 12.9, platelets 150, troponin 0.076, 0.086 normal TSH, magnesium 2.1, lipase has been greater than 4000
Chest x-ray elevated hemidiaphragms, poor inspiration, possible vascular congestion versus crowding
EKG yesterday: SVT, rate 223 beats per minutes
Objective
Labs:
04/24/24 03:33
Labs
Hgb 12.5 g/dL (13.0-18.0) L 04/24/24 03:33
Hct 36.0 % (39.0-52.0) L 04/24/24 03:33
Plt Count 150 10^3/uL (130-400) 04/24/24 03:33
PT 14.5 Sec (11.4-14.6) 04/23/24 11:37
INR 1.12 04/23/24 11:37
APTT 28.3 Sec (23.4-35.0) 04/23/24 11:37
Sodium 141 mmol/L (135-145) 04/24/24 03:33
Potassium 4.1 mmol/L (3.5-5.1) 04/24/24 03:33
BUN 46 mg/dl (9-20) H 04/24/24 03:33
Creatinine 1.6 mg/dL (0.7-1.3) H 04/24/24 03:33
Glucose 148 mg/dl (70-99) H 04/24/24 03:33
Troponins
04/23/24 04/23/24
15:19 19:57
Troponin I 0.086 H* 0.076 H*
Vital Signs and I&O:
Vital Signs
Temp Pulse Resp BP Pulse Ox
37.3 C 99 26 161/72 90
04/24/24 05:40 04/24/24 06:35 04/24/24 06:35 04/24/24 06:35 04/24/24 02:15
Vital Signs
Temp Pulse Resp BP Pulse Ox
37.3 C 99 26 161/72 90
04/24/24 05:40 04/24/24 06:35 04/24/24 06:35 04/24/24 06:35 04/24/24 02:15
Intake & Output
04/22/24 04/23/24 04/24/24 04/25/24
07:59 07:59 07:59 07:59
Intake Total 2200 / 2200 4260 / 4260 3194.0 / 3194.0
Output Total 950 / 950 3875 / 3875
Balance 1250 / 1250 4260 / 4260 -681.0 / -681.0
Physical Exam
Physical Exam
See above
--- NOTE | 2024-04-24 11:15 | PTCARENOTE ---
Pt's diet advanced to CL following AM rounds. Pt provided w/ water and encouraged to initially go slow with PO intake due to c/o nausea this AM. Pt verbalized understanding and agreement w/ plan. 10 minutes after providing pt w/ water, pt asked this
RN for more water having already finished the cup of water provided to him. While this RN was in room continuing to assess pt, he began retching and c/o feeling nauseated. Pt not due yet for Zofran. Comfort measures provided and pt instructed again
on the importance of slowly taking PO. at bedside verbalized understanding and encouraged pt to follow recommendations. Pt has been having frequent small, loose, light brown BM's on bedpan. Frequent gela-care provided. Pt noted to have episodes
of VT when turning to Rt side for care following use of bedpan- arrhythmia terminated once laying on his back. Brennen Adams and IRAJ Snug aware. IV Team RN notified of need to reposition PICC. No additional changes from previous assessment findings.
[2024-04-24 11:56] LABS: Glucose - Point of Care 121 mg/dl (70-99)
[2024-04-24] MEDS: SODIUM BICARBONATE 1075 MEQ IV (12:01)
--- NOTE | 2024-04-24 12:15 | VATNOTE ---
Called to see patient after CXR as heel former felt PICC line was in too far, informed nursing that I would need to wait for radiologist's read before I can retract picc further. Called radiology to expedite CXR read, states that radiology is
reading the x-ray now.
[2024-04-24 12:47] LABS: NT-proBNP 399 pg/ml
[2024-04-24 12:56] LABS: Blood Urea Nitrogen 35 mg/dl (9-20); Calcium 6.9 mg/dl (8.4-10.2); Carbon Dioxide 27 mmol/L (22-30); Chloride 108 mmol/L (98-107); Estimated Creatinine Clearance > 125 ml/min; Glucose 129 mg/dl (70-99); Lipase 1301 U/L (23-300); Potassium 3.9 mmol/L (3.5-5.1); Sodium 143 mmol/L (135-145); eGFR > 60.00
--- NOTE | 2024-04-24 13:05 | VATNOTE ---
Per verbal order from Dr. IRAJ Sung taken by PCN, PICC retracted an additional 4 cm for a total ECL of 6 cm.
--- NOTE | 2024-04-24 14:04 | W.PN.GI.CBS2 ---
Today's Communication / Plan
-
Continue current supportive care
Assessment / Plan
-
33-year-old male with past medical history of ADHD, hypertension and gout presents to the emergency room with acute onset of nausea, vomiting and severe abdominal pain. Asked to evaluate for acute pancreatitis. No new medications, 3 alcoholic
beverages over the weekend, no chronic use. No known gallstones. CAT scan with no gallstones present. WBC 20.8, hemoglobin 16.1, hematocrit 46.2, platelets 191, sodium 138, potassium 3.8, chloride 108, CO2 19, BUN 14, creatinine 1.0, glucose 179,
total bilirubin 1.0, AST 60, ALT 64, alk phos 96, albumin 4.7, lipase greater than 4000. CT of the abdomen pelvis without oral or IV contrast showing gallbladder within normal limits. Pancreas is edematous with surrounding peripancreatic fluid
compatible with acute pancreatitis. There is no peripancreatic fluid collection. Pancreatic parenchyma is relatively uniform. No pancreatic mass or dilatation within the main pancreatic duct.
impression
-- Severe necrotizing pancreatitis- 1st episode. etiology unknown. Occasional alcohol use. MRCP no choledocholithiasis. Mildly elevated triglyceride. Was on lisinopril for hypertension
-- KIRTI
-- Hypoxemia
-- SVT
plan
Continue current care as per critical care team
Negative fluid balance yesterday. Nephrology/cardiology following
Patient is on 6 L oxygen via nasal cannula sat around 92-94
Adjustment of PICC line as recommended by cardiology
Pain management as per medical team
Antibiotics was started by ICU team
Monitor input/output
Discussed with patient/family/hospitalist
I also discussed case with Dr. Aguilar. Continue current supportive management. No endoscopic intervention at this point .
Total Time Spent with Patient (in minutes): 35
Subjective
Subjective
Date of Service: April 24, 2024
Patient continues to have abdominal pain/nausea. Denies any vomiting. Also complaining of dyspnea with movement.
Objective
Data Reviewed
Laboratory Data:
Laboratory Results
04/24/24 03:33
04/24/24 12:11
Laboratory Results
PT 14.5 Sec (11.4-14.6) 04/23/24 11:37
INR 1.12 04/23/24 11:37
APTT 28.3 Sec (23.4-35.0) 04/23/24 11:37
Phosphorus 2.7 mg/dl (2.5-4.5) 04/24/24 03:33
Magnesium 2.1 mg/dl (1.6-2.3) 04/24/24 03:33
Total Bilirubin 2.8 mg/dl (0.2-1.3) H 04/23/24 07:55
AST 161 U/L (17-59) H 04/23/24 07:55
ALT 43 U/L (0-50) 04/23/24 07:55
Alkaline Phosphatase 42 U/L (38-126) 04/23/24 07:55
Lipase 1301 U/L (23-300) H* 04/24/24 12:11
Vital Signs and I&O:
Vital Signs
Temp Pulse Resp BP Pulse Ox
98.4 F 99 26 161/72 94
04/24/24 11:46 04/24/24 06:35 04/24/24 06:35 04/24/24 06:35 04/24/24 11:46
I&O
04/23/24 04/24/24 04/25/24
06:59 06:59 06:59
Intake Total 4260 / 4260 3194.0 / 3279.5 525.5 / 525.5
Output Total 3875 / 3875 700 / 700
Balance 4260 / 4260 -681.0 / -595.5 -174.5 / -174.5
Physical Exam
Physical Exam
GI: Soft, Distended (Mildly distended) and Tender (Epigastric)
[2024-04-24 14:08] LABS: C-Reactive Protein > 270.00 mg/L (0.0-10.00)
[2024-04-24] MEDS: ATROVENT NEBULES 0.5 MG INH ×2 (14:11→21:20)
[2024-04-24] MEDS: XOPENEX 1.25 MG INHALANT SOLUTION INH ×2 (14:11→21:20)
[2024-04-24 14:15] LABS: Glucose - Point of Care 125 mg/dl (70-99)
[2024-04-24 14:27] LABS: Erythrocyte Sed Rate 43 mm/hour (0-20)
--- NOTE | 2024-04-24 16:00 | PTCARENOTE ---
Pt napping. Has been taking PO water/ice chips w/o further c/o nausea. Family remain attentive at bedside. Pt using bedpan to pass small amounts of loose light brown BM. Mckinnon continues to drain guy urine. Glycemic protocol continues. Tapering
Cardizem gtt while maintaining HR newly ordered parameters 80-120- pt's HR low 100's at present. No further arrhythmias noted since PICC adjusted. No additional changes noted from previous assessment findings.
[2024-04-24 16:21] LABS: Glucose - Point of Care 116 mg/dl (70-99)
[2024-04-24] MEDS: TRANDATE 10 MG IV (16:45)
[2024-04-24] MEDS: ROXICODONE 5 MG PO ×2 (16:45→21:36)
--- NOTE | 2024-04-24 16:51 | PTCARENOTE ---
Pt's SBP elevated- Dr Adams aware. Order for Trandate 10mg IV received and given. Continuing to taper Cardizem gtt. Pt ordered CL dinner tray w/ 's assistance.
[2024-04-24] MEDS: LOVENOX 40 MG SC (18:05)
[2024-04-24 18:24] LABS: Glucose - Point of Care 177 mg/dl (70-99)
[2024-04-24] MEDS: TYLENOL 650 MG PO (19:26)
[2024-04-24 19:28] LABS: Glucose - Point of Care 137 mg/dl (70-99)
--- NOTE | 2024-04-24 19:56 | PTCARENOTE ---
Received patient in bed on insulin gtt at 12 units and on 1/2NSwith bicarb at 70 ml/hr. Patient complains of 9/10 pain, feeling warm--temp 99.5 F and agitation. Patient verbalized not feeing comfortable. Pt's AAOx4 and able to make his needs known.
Pain management plan and plan of care for the shift reviewed with the patient. Pt's sinus tachy on the monitor, BP 182/80 with trace anasarca. Pulses are palpable. INTERNAL RECRUITER made aware of pt's BP. Pt's with expiratory wheezes on 6L/o2 nc. SpO2 at 91%.
Pt's tachypneic with RR 25. Order to d/c IV fluids per TRENTON Conway. Hypoactive bowel sounds. Pt's judd catheter is draining guy urine. Pt's repositioning himself on the bed. Extra pillows provided. Pt's spouse and sister are at the bedside.
Questions encouraged. Calcium gluconate 3 grams ordered.
[2024-04-24] MEDS: CALCIUM GLUCONATE 130 MG IV (20:14)
[2024-04-24 20:27] LABS: Glucose - Point of Care 127 mg/dl (70-99)
[2024-04-24 21:34] LABS: Glucose - Point of Care 117 mg/dl (70-99)
[2024-04-24] MEDS: APRESOLINE 10 MG IV (22:12)
[2024-04-24 22:28] LABS: Glucose - Point of Care 94 mg/dl (70-99)
[2024-04-24 23:17] LABS: Glucose - Point of Care 105 mg/dl (70-99)
[2024-04-25] VITALS (19 sets, daily range): BP systolic 136–187; BP diastolic 63–103; PULSE 92; O2SAT 95; BMI 43.1
[2024-04-25] MEDS: STERILE WATER FOR INJECTION 10 ML IV ×2 (00:15→05:42)
[2024-04-25] MEDS: MERREM 500 MG IV ×2 (00:15→05:41)
[2024-04-25 00:22] LABS: Glucose - Point of Care 139 mg/dl (70-99)
[2024-04-25] MEDS: DILAUDID 1 MG IV ×8 (01:14→22:30)
[2024-04-25] MEDS: ZOFRAN 4 MG IV ×2 (01:18→07:40)
--- NOTE | 2024-04-25 01:24 | PTCARENOTE ---
Patient reassessed. complains of 9/10 lower abdominal pain. c/o nausea. prn pain medication and zofran administered per order. Remains sinus tachy on the monitor with HR 115. Patient had two mucoid BM. Patient cleansed with CHG wipes. Linens
changed. Pt's family remains at the bedside.
[2024-04-25] MEDS: OFIRMEV 100 IV ×2 (02:08→07:40)
[2024-04-25 02:25] LABS: Glucose - Point of Care 101 mg/dl (70-99)
[2024-04-25] MEDS: ROXICODONE 5 MG PO ×3 (02:49→20:55)
--- NOTE | 2024-04-25 02:57 | PTCARENOTE ---
Received patient AAOx3, following commands, reporting 8/10 pain in abdomen. PRN oxycodone given. Sinus tach, 100s. BP stable, 140s-150s/80s, normothermic. Palpable radial and pedal pulses bilaterally. 93% on 6 liters nasal cannula, expiratory wheeze
noted. Diminished at the bases. Abdomen round, obese, distended, nontender. Hypoactive bowel sounds. Mckinnon putting out guy urine. Insulin gtt ongoing per glycemic protocol. Family at bedside, call poe within reach, able to make needs known.
--- NOTE | 2024-04-25 03:00 | PTCARENOTE ---
Cannot verify vitals prior to 0300, previous nurse.
[2024-04-25] MEDS: APRESOLINE 10 MG IV (04:11)
[2024-04-25 04:15] LABS: Glucose - Point of Care 114 mg/dl (70-99)
[2024-04-25 04:36] LABS: Hematocrit 36.5 % (39.0-52.0); Hemoglobin 12.1 g/dL (13.0-18.0); Mean Corp Hgb Conc. 33.2 g/dL (33.0-37.0); Mean Corpuscular Hgb 29.2 pg (27.0-31.0); Mean Platelet Volume 9.9 fL (7.4-10.4); Platelet Count 181 10^3/uL (130-400); Red Blood Cell Count 4.15 10^6/uL (4.70-6.10); White Blood Cell Count 15.8 10^3/uL (4.8-10.8)
[2024-04-25 05:00] LABS: ALT (SGPT) 41 U/L (0-50); AST (SGOT) 120 U/L (17-59); Albumin 3.4 g/dl (3.5-5.0); Alkaline Phosphatase 60 U/L (38-126); Blood Urea Nitrogen 27 mg/dl (9-20); Calcium 6.9 mg/dl (8.4-10.2); Carbon Dioxide 28 mmol/L (22-30); Chloride 108 mmol/L (98-107); Estimated Creatinine Clearance > 125 ml/min; Glucose 107 mg/dl (70-99); Magnesium 2.4 mg/dl (1.6-2.3); Potassium 3.7 mmol/L (3.5-5.1); Sodium 144 mmol/L (135-145); Total Bilirubin 2.6 mg/dl (0.2-1.3); eGFR > 60.00
[2024-04-25 05:14] LABS: C-Reactive Protein > 270.00 mg/L (0.0-10.00)
[2024-04-25] MEDS: CALCIUM GLUCONATE 130 MG IV (05:42)
[2024-04-25 06:05] LABS: Glucose - Point of Care 97 mg/dl (70-99)
--- NOTE | 2024-04-25 07:24 | W.PN.INTV ---
Today's Communication / Plan
Recommendations
Doing well, off dilt; would d/c PICC
Sitting in chair, PT/OT
Will transition off insulin gtt, advance diet as tolerated
Stop abx
CPAP if needed, wean O2 as tolerated/likely atelectasis/deconditioning
Continue nebs TID until asymptomatic
Transfer to IMU, we will sign off upon transfer
Assessment
-
Patient is a 33-year-old male with a past medical history significant for essential hypertension, prediabetes, gout, attention deficit hyperactivity disorder who presented with acute abdominal pain starting day of presentation. CT AP showing acute
pancreatitis with lipase >4000. He has no family history of pancreatitis. He denies any significant alcohol intake. Admitted 04/21/24 and placed on IVFs. This AM 04/23/24, patient noted to have worsening acidosis, KIRTI, hyperglycemia. Repeat Abd MRI
showing possible necrosis. He is transferred to ICU for severe worsening pancreatitis.
Severe acute pancreatitis with possible necrosis
Metabolic acidosis
Hyperglycemia
Severe hepatic steatosis
Hypocalcemia
Elevated LFTs
KIRTI
Leukocytosis
Wheezing
SVT
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
Morbid obesity BMI 46.3
Deviated septum and tonsils and adenoids s/p Septoplasty and Coblation adenotonsillectomy 07/29/23
Essential hypertension
Prediabetes
Gout
Attention deficit hyperactivity disorder
Suspect EVERT
Plan
No current signs of metabolic encephalopathy or MS changes/following commands
Pain control
Pain/sedation: Dilaudid PRN
RASS goals: 0
Hemodynamically stable, not requiring pressors.
Cardiac history reviewed--HTN/off Dilt now
Cards eval--appreciate help
No prior ECHO for review, obtain new study--normal
Monitor on telemetry
D/c PICC line
Oxygen needs: stable on RA
Prior history of lung disease: none
No PFT for review
Supplemental O2 as indicated to maintain sats > 89%
CXR/CT reviewed indicating small effusions
Likely has EVERT, sleep study as OP recommended, can try CPAP if needed
Continue nebulizer TID
Acute pancreatitis--labs trending down
Diet advanced to fulls
Imaging reviewed
We discussed low fat diet compliance
Aspiration precautions, HOB > 30 degrees
GI prophylaxis
May need repeat CT scan to eval for necrosis eventually
Stop abx
KIRTI present, renal following, improving
No history of renal disease
Void trials, frequent labs q4
Follow urine output, critical I/Os
Replete electrolytes as needed--low Ca/add PO BID
Acid/base status: met acidosis noted, IVFs
Repeat labs-lipase/ESR/CRP improved
WBC noted, MRP IV
Cultures neg, stop abx
Follow fever trend, WBC count
CBC stable, no signs of bleeding or coagulopathy.
DVT prophylaxis as assessed based on risk, including mechanical SCDs
Can transfuse if indicated for Hb <7, plt < 10
H/o prediabetes, not on home meds
Continue insulin gtt in setting of pancreatitis
Accu checks q1
HbA1c 6.1
Transition to SQ -- based on insulin gtt rate, not accurate basal dosing
Will transition with 0.3 x kg, add 10 lantus and 8 units prandial
High dose SS
Diagnostic Data
Chest X-Ray: 04/23/24- Low lung volumes with small bilateral pleural effusions with or suboptimally evaluated on the current examination and seen better on MRI acquired yesterday. No focal consolidation to suggest pneumonia. No pneumothorax.
CT Scan: AP 04/21/24- Acute interstitial edematous pancreatitis. There is peripancreatic and retroperitoneal fluid, but no drainable fluid collection. Atherosclerotic calcifications involving the visualized coronary arteries and aortobiiliac
vasculature that is greater than expected for a patient of this age. Hepatomegaly and hepatic steatosis. Partially visualized 4.8 mm nodule in the right middle lobe. See below for follow-up guidelines.
Other Chronic/incidental findings as detailed in the body the report.
Abd MRI 04/22/24- There is extensive peripancreatic edema/inflammation consistent with known acute pancreatitis. There is heterogeneous enhancement of the pancreas with apparent hypoenhancement of the body and tail suspicious for necrosis. There is
additional fluid tracking down the secondary retroperitoneum as well as small volume perihepatic and perisplenic free fluid. No discrete collection.
The gallbladder is mildly distended, likely secondary to fasting state. There is no discrete cholelithiasis or choledocholithiasis. Hepatomegaly with hepatic steatosis.
Small bilateral pleural effusions with adjacent atelectasis.
Echo:
PFT's:
Reports and relevant images were personally reviewed.
-----
Critical Care time 35 mins -- The patient is admitted for acute critical illness for the treatment of vital organ failure and/or prevention of further life-threatening conditions. Total care includes time spent in review of history, physical exam,
medications, hemodynamic/ventilator parameters, laboratory data, imaging and discussion with house staff, pharmacy, respiratory therapy, preformer impregnated fabrics, and nursing.
Subjective Dataa
Subjective Data
Date of Service:
Date of Service: April 25, 2024
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
Subjective:
Doing well this AM, sitting in chair
Off Dilt
Still SOB but abd pain is better
Objective Data
Data Reviewed
Vital Signs / I&O / Oxygen:
Vital Signs
Temp Pulse Resp BP Pulse Ox
97.9 F 100 18 137/63 93
04/25/24 07:22 04/25/24 06:00 04/25/24 06:00 04/25/24 05:06 04/25/24 06:00
Intake and Output
04/24/24 04/25/24 04/26/24
06:59 06:59 06:59
Intake Total 3194.0 / 3279.5 2180.7 / 2180.7
Output Total 3875 / 3875 2625 / 2625
Balance -681.0 / -595.5 -444.3 / -444.3
SaO2 93
Nasal Cannula flow liters per 6
minute
Physical Exam
General: Pain and Other (NAD)
HEENT: Normocephalic, Anicteric and Moist Mucous Membranes
Cardiovascular: S1-S2, Regular Rhythm and Peripheral Edema
Respiratory: Clear and Non-Labored Respirations (small, shallow breaths noted)
GI: Soft, Non Distended and Tender
Neurology: Awake, Alert, Oriented, AO x 3 and No Motor Deficits
Skin: Warm, Dry and Good Color
Labs/Micro/Reports
Lab Data
04/25/24 04:18
04/25/24 04:18
Microbiology
04/23/24 11:22 Blood/Venous Blood Culture - Preliminary
No Growth in 24 hours- Final report to follow
[2024-04-25] MEDS: PROTONIX IV 40 MG IV (07:41)
[2024-04-25] MEDS: NSS (PRESERVATIVE FREE) 10 ML IV (07:41)
[2024-04-25 08:15] LABS: Glucose - Point of Care 118 mg/dl (70-99)
--- NOTE | 2024-04-25 08:21 | W.PN.HOSP.TC ---
Today's Communication/Plan
-
d/c judd
consider more diuresis, will defer to renal--consider stopping IVF, will defer to renal
transition off glycemic protocol
OOB
PT/OT
wean O2
advance diet
Assessment / Plan
Assessment / Plan
pt is a 33 year old male
SIRS due to Acute severe pancreatitis with early necrosis by imaging--with leukocytosis likely reactive, improving acidosis and KIRTI, stop judd, apprec renal/GI/technical sourcing recruiter/cards, MRCP without stones --patient has rare alcohol use if any and CAT
scan does not show any dilated ducts or stones noted in the gallbladder--therefore etiology remains unclear--possibly due to lisinopril, will stop--advance diet to full liquids-- pain control Q3H -- meropenem started by technical sourcing recruiter--add bowel regimen
SVT--started 04/23--apprec cards--off cardizem drip--ECHO WNL-- thought due to PICC LINE
acute hypoxemic resp insufficiency--requiring O2 now--very SOB with movement--check daily CXR--concern for developing ARDS.....
Essential hypertension--lisinopril on hold, will stop
Gout--allopurinol on hold
ADHD--atomoxetine (Strattera) on hold
Prediabetes--will place on Accu-Cheks with sliding scale coverage, check hemoglobin A1c
Lung nodule--noted on CAT scan--told pt and --will need follow-up as outpatient
morbid obesity -- BMI 45.9--apprec dietary
DVT prophylaxis
CODE STATUS--full code
transition off glycemic protocol and transfer to IMU
Anticipated Discharge: > 48 hours
Subjective/Interval History
-
Date of Service: April 25, 2024
pt sitting in the chair, looks much improved
Objective Data
-
Labs:
Laboratory Results
04/25/24
04:18
WBC 15.8 H
Hgb 12.1 L
Hct 36.5 L
Plt Count 181 D
Sodium 144
Potassium 3.7
Chloride 108 H
Carbon Dioxide 28
BUN 27 H
Creatinine 1.0
Glucose 107 H
Calcium 6.9 L*
Total Bilirubin 2.6 H
AST 120 H
ALT 41
Alkaline Phosphatase 60
Vital Signs:
max temp for 24 hours
04/23/24
15:15
Temp 100.4 F H
Vital Signs
Temp Pulse Resp BP Pulse Ox
97.9 F 100 18 137/63 93
04/25/24 07:22 04/25/24 06:00 04/25/24 06:00 04/25/24 05:06 04/25/24 06:00
I&O
04/24/24 04/25/24 04/26/24
06:59 06:59 06:59
Intake Total 3194.0 / 3279.5 2180.7 / 2180.7
Output Total 3875 / 3875 2625 / 2625
Balance -681.0 / -595.5 -444.3 / -444.3
Review of Systems
-
All other systems: Reviewed and negative
Physical Exam
-
General: Well Developed, Well Nourished and Morbidly Obese
HEENT: Normocephalic, Atraumatic and Oxygen
Respiratory: Clear to Auscultation; Negative Wheezes or Rhonchi
Cardiac: Regular Rhythm and S1/S2; Negative Murmur
GI: Soft, Nontender, Nondistended and Normal Bowel Sounds
Musculoskeletal: No Clubbing, No Cyanosis and No Edema
Neuro: Awake and Alert
Psych: Calm
[2024-04-25] MEDS: NOVOLOG FLEXPEN 8 UNITS SC ×4 (08:35→23:21)
[2024-04-25] MEDS: ATROVENT NEBULES 0.5 MG INH ×3 (08:45→20:25)
[2024-04-25] MEDS: XOPENEX 1.25 MG INHALANT SOLUTION INH ×3 (08:45→20:25)
--- NOTE | 2024-04-25 08:47 | W.PN.CARDCBS ---
Today's Communication / Plan
-
No further SVT
Will sign off
Impression / Plan
-
PCP: Dr. Padron
Cardiology: None
Impression:
Admitted with acute pancreatitis 04/21/24
SVT, suspect due to catheter in the right atrium
Severe acute pancreatitis with possible necrosis
Severe hepatic steatosis
Elevated LFTs
Acute HFpEF, suspected
HTN
Prediabetes, HgbA1c 6.1%
ADHD on atomoxetine prior to admission
Daily marijuana smoker/vaper
Previous tobacco smoker
Echo 04/23/24: Study pending
Plan:
No further SVT since his PICC line was pulled back to the point where PICC line tip is in the SVC.
His echocardiogram shows a normal EF without significant valvular heart disease. Right heart is normal, could not determine pulmonary artery systolic pressure. proBNP is was not elevated 04/23
He remains with sinus tachycardia. This is a manifestation of his pancreatitis and hemodynamic stress.
Will sign off, please call us back if needed.
Does not require cardiac follow-up as an outpatient unless he were to develop symptomatic SVT in the outpatient setting.
Progress Note - Sales And Customer Relations Rep
Subjective
Date of Service: April 25, 2024
He is in the bathroom brushing getting cleaned up and expresses no complaints.
Objective
Labs:
04/25/24 04:18
04/25/24 04:18
Labs
Hgb 12.1 g/dL (13.0-18.0) L 04/25/24 04:18
Hct 36.5 % (39.0-52.0) L 04/25/24 04:18
Plt Count 181 10^3/uL (130-400) D 04/25/24 04:18
PT 14.5 Sec (11.4-14.6) 04/23/24 11:37
INR 1.12 04/23/24 11:37
APTT 28.3 Sec (23.4-35.0) 04/23/24 11:37
Sodium 144 mmol/L (135-145) 04/25/24 04:18
Potassium 3.7 mmol/L (3.5-5.1) 04/25/24 04:18
BUN 27 mg/dl (9-20) H 04/25/24 04:18
Creatinine 1.0 mg/dL (0.7-1.3) 04/25/24 04:18
Glucose 107 mg/dl (70-99) H 04/25/24 04:18
Troponins
04/23/24 04/23/24
15:19 19:57
Troponin I 0.086 H* 0.076 H*
Vital Signs and I&O:
Vital Signs
Temp Pulse Resp BP Pulse Ox
97.9 F 100 18 137/63 93
04/25/24 07:22 04/25/24 06:00 04/25/24 06:00 04/25/24 05:06 04/25/24 06:00
Vital Signs
Temp Pulse Resp BP Pulse Ox
97.9 F 100 18 137/63 93
04/25/24 07:22 04/25/24 06:00 04/25/24 06:00 04/25/24 05:06 04/25/24 06:00
Intake & Output
04/23/24 04/24/24 04/25/24 04/26/24
06:59 06:59 06:59 06:59
Intake Total 4260 / 4260 3194.0 / 3279.5 2180.7 / 2180.7
Output Total 3875 / 3875 2625 / 2625
Balance 4260 / 4260 -681.0 / -595.5 -444.3 / -444.3
Physical Exam
Physical Exam
Sitting on toilet and appears comfortable.
--- NOTE | 2024-04-25 09:02 | PTCARENOTE ---
report received, assessments per work list. patient c/o pain and nausea. see PRN administration. tolerated clear liquids, oob to chair. data sciences director, hospitalist in. transfer orders noted. glycemic insulin stopped. monitor sinus tachycardia. weaning
oxygen. call poe in reach. family at bedside
[2024-04-25] MEDS: OSCAL CAL 500 1000 MG PO ×2 (09:18→19:35)
[2024-04-25] MEDS: TRANDATE 100 MG PO ×2 (09:18→19:35)
--- NOTE | 2024-04-25 09:48 | PTCARENOTE ---
Addendum entered by Ruth Childers RN 04/25/24 11:54:
transfer to IMU
Original Note:
patient c/o gas and abdominal cramping. hospitalist updated by estee text. orders pending
--- NOTE | 2024-04-25 10:11 | W.PN.GI.CBS2 ---
Today's Communication / Plan
-
clear liquid diet
trend CRP
OOB to chair
Assessment / Plan
-
33-year-old male with past medical history of ADHD, hypertension and gout presents to the emergency room with acute onset of nausea, vomiting and severe abdominal pain. Asked to evaluate for acute pancreatitis. No new medications, 3 alcoholic
beverages over the weekend, no chronic use. No known gallstones. CAT scan with no gallstones present. WBC 20.8, hemoglobin 16.1, hematocrit 46.2, platelets 191, sodium 138, potassium 3.8, chloride 108, CO2 19, BUN 14, creatinine 1.0, glucose 179,
total bilirubin 1.0, AST 60, ALT 64, alk phos 96, albumin 4.7, lipase greater than 4000. CT of the abdomen pelvis without oral or IV contrast showing gallbladder within normal limits. Pancreas is edematous with surrounding peripancreatic fluid
compatible with acute pancreatitis. There is no peripancreatic fluid collection. Pancreatic parenchyma is relatively uniform. No pancreatic mass or dilatation within the main pancreatic duct.
impression
-- Severe necrotizing pancreatitis- 1st episode. etiology unknown. Occasional alcohol use. MRCP no choledocholithiasis. Mildly elevated triglyceride. Was on lisinopril for hypertension
-- KIRTI
-- Hypoxemia
-- SVT- PICC line adjusted
plan
clinically doing better. CRP remains elevated . will trend
clear liquid diet
check IgG4
Needs repeat imaging as outpatient
Negative fluid balance yesterday. Nephrology/cardiology following
Patient is on 4 L oxygen via nasal cannula sat around 95
Pain management as per medical team. Minimize opioid use
Antibiotics was started then d/c today by ICU team.
Monitor input/output
Discussed with patient/family.
Total Time Spent with Patient (in minutes): 35
Subjective
Subjective
Date of Service: April 25, 2024
Feeling better today. Out of bed to chair. Tolerating clear liquid
Objective
Data Reviewed
Laboratory Data:
Laboratory Results
04/25/24 04:18
04/25/24 04:18
Laboratory Results
PT 14.5 Sec (11.4-14.6) 04/23/24 11:37
INR 1.12 04/23/24 11:37
APTT 28.3 Sec (23.4-35.0) 04/23/24 11:37
Phosphorus 2.7 mg/dl (2.5-4.5) 04/24/24 03:33
Magnesium 2.4 mg/dl (1.6-2.3) H 04/25/24 04:18
Total Bilirubin 2.6 mg/dl (0.2-1.3) H 04/25/24 04:18
AST 120 U/L (17-59) H 04/25/24 04:18
ALT 41 U/L (0-50) 04/25/24 04:18
Alkaline Phosphatase 60 U/L (38-126) 04/25/24 04:18
Lipase 1301 U/L (23-300) H* 04/24/24 12:11
Vital Signs and I&O:
Vital Signs
Temp Pulse Resp BP Pulse Ox
97.9 F 106 20 152/84 95
04/25/24 07:22 04/25/24 09:18 04/25/24 08:58 04/25/24 09:18 04/25/24 09:00
I&O
04/24/24 04/25/24 04/26/24
06:59 06:59 06:59
Intake Total 3194.0 / 3279.5 2180.7 / 2182.6 723.8 / 723.8
Output Total 3875 / 3875 2625 / 2625 250 / 250
Balance -681.0 / -595.5 -444.3 / -442.4 473.8 / 473.8
Physical Exam
Physical Exam
GI: Soft, Non Distended and Tender
--- NOTE | 2024-04-25 11:06 | W.PN.NEPH.PH ---
Today's Communication / Plan
-
supportive care and follow labs
Assessment/Plan
-
Impression:
Acute kidney injury
Acute pancreatitis
Hypocalcemia
History of hypertension
History of gout
Plan:
KIRTI in setting of Pancreatitis, prerenal
cr improving today and non oliguric
off IVF this am and off judd
BP high but improving, changed po labetolol per primary
repleted Calcium IV ( pancreatitis), replete PRN
over all doing well, lipase improving
follow labs
will s/o, call with ?s
-
-
Date of Service: April 25, 2024
CC / HPI / ROS
-
Chief Complaint:
KIRTI, multiple lytes abnormalities
History of Present Illness:
cr improving to 1, grossly non oligiric , off judd today
BP high but improving, no SVTS
Wt decreasing
prabhakar low 6.9
Review of Systems:
mild pain, no sob
mild nausea
no fever
Labs
-
Labs:
WBC 15.8 10^3/uL (4.8-10.8) H 04/25/24 04:18
RBC 4.15 10^6/uL (4.70-6.10) L 04/25/24 04:18
Hgb 12.1 g/dL (13.0-18.0) L 04/25/24 04:18
Hct 36.5 % (39.0-52.0) L 04/25/24 04:18
Plt Count 181 10^3/uL (130-400) D 04/25/24 04:18
Sodium 144 mmol/L (135-145) 04/25/24 04:18
Potassium 3.7 mmol/L (3.5-5.1) 04/25/24 04:18
Chloride 108 mmol/L (98-107) H 04/25/24 04:18
Carbon Dioxide 28 mmol/L (22-30) 04/25/24 04:18
BUN 27 mg/dl (9-20) H 04/25/24 04:18
Creatinine 1.0 mg/dL (0.7-1.3) 04/25/24 04:18
eGFR > 60.00 04/25/24 04:18
Glucose 107 mg/dl (70-99) H 04/25/24 04:18
Calcium 6.9 mg/dl (8.4-10.2) L* 04/25/24 04:18
Phosphorus 2.7 mg/dl (2.5-4.5) 04/24/24 03:33
Shq-P-Psqcxehjmii Pept 399 pg/ml 04/24/24 12:11
Albumin 3.4 g/dl (3.5-5.0) L 04/25/24 04:18
Physical Exam
-
Vital Signs:
Vital Signs
Temp Pulse Resp BP Pulse Ox
97.9 F 106 20 152/84 95
04/25/24 07:22 04/25/24 09:18 04/25/24 08:58 04/25/24 09:18 04/25/24 09:00
Cardiovascular:: Regular rate and rhythm
Respiratory:: Bilateral: CTA (decreased)
Lung Excursion:: Normal
Abdomen:: Distended and Soft
Extremity Edema:: None: Bilateral:
Judd Catheter: No
[2024-04-25 13:06] LABS: Glucose - Point of Care 200 mg/dl (70-99)
[2024-04-25] MEDS: NOVOLOG FLEXPEN-HIGH RESISTANCE 4 UNITS SC (13:47)
[2024-04-25] MEDS: MYLICON 80 MG PO ×2 (13:48→17:05)
[2024-04-25] MEDS: LOVENOX 40 MG SC (17:05)
[2024-04-25 17:37] LABS: Glucose - Point of Care 157 mg/dl (70-99)
[2024-04-25] MEDS: NOVOLOG FLEXPEN-HIGH RESISTANCE 2 UNITS SC (18:01)
--- NOTE | 2024-04-25 18:52 | PTCARENOTE ---
pt ringing call poe for pain medication repeatedly before next PRN dose is available. Explained medication times. Pt expressed IV dilaudid only lasts about 30 mins- 1 hour. Offered Roxicodone as that is oral medication. Pt refused.
[2024-04-25] MEDS: LANTUS 0.1 UNITS SC (20:55)
[2024-04-25 21:03] LABS: Glucose - Point of Care 163 mg/dl (70-99)
[2024-04-25 23:31] LABS: Glucose - Point of Care 161 mg/dl (70-99)
[2024-04-26] VITALS (7 sets, daily range): BP systolic 158–197; BP diastolic 81–109; BMI 46.2
[2024-04-26] MEDS: ROXICODONE 5 MG PO ×2 (00:58→08:03)
[2024-04-26] MEDS: DILAUDID 1 MG IV ×2 (01:35→04:32)
[2024-04-26] MEDS: FLUSH (NSS) 2 FLUSH IV (01:36)
[2024-04-26 03:36] LABS: Hematocrit 31.6 % (39.0-52.0); Mean Corp Hgb Conc. 34.8 g/dL (33.0-37.0); Mean Corpuscular Hgb 29.3 pg (27.0-31.0); Mean Corpuscular Volume 84.3 fL (80.0-94.0); Mean Platelet Volume 10.3 fL (7.4-10.4); Platelet Count 165 10^3/uL (130-400); Red Blood Cell Count 3.75 10^6/uL (4.70-6.10); Red Cell Dist. Width 14.8 % (11.5-14.5)
[2024-04-26 03:53] LABS: ALT (SGPT) 39 U/L (0-50); AST (SGOT) 88 U/L (17-59); Albumin 3.4 g/dl (3.5-5.0); Alkaline Phosphatase 76 U/L (38-126); Blood Urea Nitrogen 20 mg/dl (9-20); Calcium 7.6 mg/dl (8.4-10.2); Carbon Dioxide 28 mmol/L (22-30); Chloride 101 mmol/L (98-107); Estimated Creatinine Clearance > 125 ml/min; Glucose 158 mg/dl (70-99); Lipase 706 U/L (23-300); Magnesium 2.4 mg/dl (1.6-2.3); Sodium 136 mmol/L (135-145); Total Bilirubin 2.8 mg/dl (0.2-1.3); Total Protein 5.8 g/dl (6.3-8.2); eGFR > 60.00
[2024-04-26] MEDS: DILAUDID 0.5 MG IV (04:06)
[2024-04-26 04:11] LABS: C-Reactive Protein > 270.00 mg/L (0.0-10.00)
--- NOTE | 2024-04-26 04:13 | PTCARENOTE ---
Patient without adequate pain control overnight. Complaining of 10/10 abd pain despite q3h 1 mg dilaudid and q4h 5 mg roxicodone. call center trainer provider made aware and ordered 1x extra dose 0.5 mg dilaudid.
[2024-04-26] MEDS: ZOFRAN 4 MG IV (05:29)
[2024-04-26] MEDS: NOVOLOG FLEXPEN 8 UNITS SC ×3 (05:29→18:09)
[2024-04-26] MEDS: MYLICON 80 MG PO ×2 (05:29→10:54)
[2024-04-26 05:37] LABS: Glucose - Point of Care 165 mg/dl (70-99)
[2024-04-26 07:42] LABS: Glucose - Point of Care 147 mg/dl (70-99)
[2024-04-26] MEDS: XOPENEX 1.25 MG INHALANT SOLUTION INH ×3 (07:46→20:46)
[2024-04-26] MEDS: ATROVENT NEBULES 0.5 MG INH ×2 (07:47→12:44)
[2024-04-26] MEDS: NOVOLOG FLEXPEN-HIGH RESISTANCE 1 UNITS SC (07:58)
[2024-04-26] MEDS: OSCAL CAL 500 1000 MG PO ×2 (07:59→19:23)
[2024-04-26] MEDS: PROTONIX IV 40 MG IV (07:59)
[2024-04-26] MEDS: NSS (PRESERVATIVE FREE) 10 ML IV (07:59)
[2024-04-26] MEDS: TRANDATE 100 MG PO ×2 (08:00→19:23)
--- NOTE | 2024-04-26 08:01 | W.PN.HOSP.TC ---
Today's Communication/Plan
-
OOB increase mobility
transitioning over to oral pain meds
lasix 20 mg IV x1
continue incentive spirometry
if continues to improve, consider transfer to tele
Assessment / Plan
Assessment / Plan
pt is a 33 year old male
SIRS due to Acute severe pancreatitis with early necrosis by imaging--with leukocytosis likely reactive, improving acidosis, resolved KIRTI, stop judd, apprec renal/GI/cricket coach/cards, MRCP without stones --patient has rare alcohol use if any and
CAT scan does not show any dilated ducts or stones noted in the gallbladder--therefore etiology remains unclear--possibly due to lisinopril, will stop--advance diet to full liquids-- pain control Q4H, and transitioning to oral pain control --
meropenem started by cricket coach, now stopped--added bowel regimen
SVT--started 04/23--apprec cards--off cardizem drip--ECHO WNL-- thought due to PICC LINE--resolved
acute hypoxemic resp insufficiency--requiring O2 now--very SOB with movement-- daily CXR improving--continuing to improve
Essential hypertension--lisinopril on hold, will stop, changed to labetalol PO
Gout--allopurinol on hold
ADHD--atomoxetine (Strattera) on hold
Prediabetes--will place on Accu-Cheks with sliding scale coverage, hemoglobin A1c 6.1
Lung nodule--noted on CAT scan--told pt and --will need follow-up as outpatient
morbid obesity -- BMI 45.9--apprec dietary--needs weight loss with close supervision
DVT prophylaxis
CODE STATUS--full code
transition off glycemic protocol and transferred to IMU
Anticipated Discharge: > 48 hours
Subjective/Interval History
-
Date of Service: April 26, 2024
pt still c/o abdominal pain
Objective Data
-
Labs:
Laboratory Results
04/26/24
03:10
WBC 18.0 H
Hgb 11.0 L
Hct 31.6 L
Plt Count 165
Sodium 136 D
Potassium 4.0
Chloride 101
Carbon Dioxide 28
BUN 20
Creatinine 0.9
Glucose 158 H
Calcium 7.6 L
Total Bilirubin 2.8 H
AST 88 H
ALT 39
Alkaline Phosphatase 76
Vital Signs:
max temp for 24 hours
04/25/24
23:31
Temp 99.2 F
Vital Signs
Temp Pulse Resp BP Pulse Ox
98.1 F 88 25 161/81 95
04/26/24 07:10 04/26/24 02:00 04/26/24 01:40 04/26/24 02:00 04/26/24 03:00
I&O
04/25/24 04/26/24 04/27/24
06:59 06:59 06:59
Intake Total 2180.7 / 2182.6 1683.8 / 1683.8
Output Total 2625 / 2625 1850 / 1850
Balance -444.3 / -442.4 -166.2 / -166.2
Review of Systems
-
All other systems: Reviewed and negative
Abdomen/GI: Reports Abdominal Pain
Physical Exam
-
General: Well Developed and Well Nourished; Negative Comfortable (appears uncomfortable)
HEENT: Normocephalic and Atraumatic
Respiratory: Clear to Auscultation; Negative Wheezes or Rhonchi
Cardiac: Regular Rhythm and S1/S2; Negative Murmur
GI: Soft, Normal Bowel Sounds, Tender and Distended
Musculoskeletal: No Clubbing, No Cyanosis and No Edema
Skin: Warm
Neuro: Awake
[2024-04-26] MEDS: LASIX 20 MG IV (09:23)
[2024-04-26] MEDS: SENOKOT-S 1 TABLET PO ×2 (09:31→15:51)
[2024-04-26] MEDS: ROXICODONE 10 MG PO ×2 (10:54→22:08)
[2024-04-26 12:07] LABS: Glucose - Point of Care 180 mg/dl (70-99)
[2024-04-26] MEDS: NOVOLOG FLEXPEN-HIGH RESISTANCE 2 UNITS SC ×2 (12:38→18:09)
--- NOTE | 2024-04-26 15:35 | W.PN.GI.CBS2 ---
Today's Communication / Plan
-
continue current care
Assessment / Plan
-
33-year-old male with past medical history of ADHD, hypertension and gout presents to the emergency room with acute onset of nausea, vomiting and severe abdominal pain. Asked to evaluate for acute pancreatitis. No new medications, 3 alcoholic
beverages over the weekend, no chronic use. No known gallstones. CAT scan with no gallstones present. WBC 20.8, hemoglobin 16.1, hematocrit 46.2, platelets 191, sodium 138, potassium 3.8, chloride 108, CO2 19, BUN 14, creatinine 1.0, glucose 179,
total bilirubin 1.0, AST 60, ALT 64, alk phos 96, albumin 4.7, lipase greater than 4000. CT of the abdomen pelvis without oral or IV contrast showing gallbladder within normal limits. Pancreas is edematous with surrounding peripancreatic fluid
compatible with acute pancreatitis. There is no peripancreatic fluid collection. Pancreatic parenchyma is relatively uniform. No pancreatic mass or dilatation within the main pancreatic duct.
impression
-- Severe necrotizing pancreatitis- 1st episode. etiology unknown. Occasional alcohol use. MRCP no choledocholithiasis. Mildly elevated triglyceride. IgG4 normal. Was on lisinopril for hypertension
-- KIRTI
-- Hypoxemia
-- SVT- PICC line adjusted
plan
clinically doing better. CRP remains elevated . will trend
Full liquid diet
Needs repeat imaging as outpatient (if worsening symptoms will consider inpatient imaging)
Negative fluid balance. Nephrology/cardiology following
Patient is on 2 L oxygen via nasal cannula sat around 95
Pain management as per medical team. Minimize opioid use
Bowel regimen
Antibiotics was started then d/c today by ICU team.
Discussed with patient/family/ Hospitalist
Total Time Spent with Patient (in minutes): 35
Subjective
Subjective
Date of Service: April 26, 2024
Doing better. Tolerating liquid diet. Abdominal pain severity is less
Objective
Data Reviewed
Laboratory Data:
Laboratory Results
04/26/24 03:10
04/26/24 03:10
Laboratory Results
PT 14.5 Sec (11.4-14.6) 04/23/24 11:37
INR 1.12 04/23/24 11:37
APTT 28.3 Sec (23.4-35.0) 04/23/24 11:37
Phosphorus 2.7 mg/dl (2.5-4.5) 04/24/24 03:33
Magnesium 2.4 mg/dl (1.6-2.3) H 04/26/24 03:10
Total Bilirubin 2.8 mg/dl (0.2-1.3) H 04/26/24 03:10
AST 88 U/L (17-59) H 04/26/24 03:10
ALT 39 U/L (0-50) 04/26/24 03:10
Alkaline Phosphatase 76 U/L (38-126) 04/26/24 03:10
Lipase 706 U/L (23-300) H 04/26/24 03:10
Vital Signs and I&O:
Vital Signs
Temp Pulse Resp BP Pulse Ox
98.2 F 102 20 161/81 95
04/26/24 15:10 04/26/24 12:45 04/26/24 12:45 04/26/24 02:00 04/26/24 12:45
I&O
04/25/24 04/26/24 04/27/24
06:59 06:59 06:59
Intake Total 2180.7 / 2182.6 1683.8 / 1683.8
Output Total 2625 / 2625 1850 / 1850
Balance -444.3 / -442.4 -166.2 / -166.2
Physical Exam
Physical Exam
GI: Soft, Non Distended and Tender (Mild tenderness lower abdomen)
[2024-04-26] MEDS: LOVENOX 40 MG SC (17:33)
[2024-04-26] MEDS: MILK OF MAGNESIA 30 ML PO (17:33)
[2024-04-26 18:17] LABS: Glucose - Point of Care 165 mg/dl (70-99)
[2024-04-26] MEDS: ATROVENT NEBULES INH (20:46)
[2024-04-26] MEDS: LANTUS 0.1 UNITS SC (22:08)
[2024-04-27] VITALS (28 sets, daily range): BP systolic 127–187; BP diastolic 56–113; BMI 46.4
[2024-04-27] MEDS: NOVOLOG FLEXPEN 8 UNITS SC ×3 (00:28→16:45)
[2024-04-27 00:37] LABS: Glucose - Point of Care 138 mg/dl (70-99)
--- NOTE | 2024-04-27 01:33 | PTCARENOTE ---
Patient with massive amounts of loose stool overnight- was requesting bedpan/ brief so he wouldn't have to walk to the bathroom. Patient encouraged to walk to the bathroom since he is independent with ADLs at baseline. PRN roxicodone given for pain.
[2024-04-27] MEDS: ROXICODONE 15 MG PO ×4 (02:07→23:28)
[2024-04-27 03:21] LABS: Glucose - Point of Care 120 mg/dl (70-99)
[2024-04-27 04:45] LABS: Hematocrit 30.4 % (39.0-52.0); Hemoglobin 10.6 g/dL (13.0-18.0); Mean Corp Hgb Conc. 34.9 g/dL (33.0-37.0); Mean Corpuscular Volume 83.1 fL (80.0-94.0); Mean Platelet Volume 10.2 fL (7.4-10.4); Platelet Count 178 10^3/uL (130-400); Red Blood Cell Count 3.66 10^6/uL (4.70-6.10); Red Cell Dist. Width 14.6 % (11.5-14.5); White Blood Cell Count 21.7 10^3/uL (4.8-10.8)
[2024-04-27 05:07] LABS: ALT (SGPT) 44 U/L (0-50); AST (SGOT) 92 U/L (17-59); Albumin 3.2 g/dl (3.5-5.0); Alkaline Phosphatase 90 U/L (38-126); Blood Urea Nitrogen 17 mg/dl (9-20); Carbon Dioxide 29 mmol/L (22-30); Chloride 98 mmol/L (98-107); Estimated Creatinine Clearance > 125 ml/min; Glucose 115 mg/dl (70-99); Lipase 916 U/L (23-300); Magnesium 2.2 mg/dl (1.6-2.3); Potassium 3.7 mmol/L (3.5-5.1); Sodium 132 mmol/L (135-145); Total Bilirubin 2.6 mg/dl (0.2-1.3); Total Protein 5.7 g/dl (6.3-8.2); eGFR > 60.00
[2024-04-27 05:32] LABS: C-Reactive Protein > 270.00 mg/L (0.0-10.00)
[2024-04-27 06:10] LABS: Glucose - Point of Care 120 mg/dl (70-99)
[2024-04-27] MEDS: DILAUDID 1 MG IV ×4 (07:22→20:08)
[2024-04-27] MEDS: TRANDATE 100 MG PO ×2 (07:23→19:26)
[2024-04-27] MEDS: OSCAL CAL 500 1000 MG PO ×2 (07:24→22:34)
[2024-04-27] MEDS: NSS (PRESERVATIVE FREE) 10 ML IV (07:26)
[2024-04-27] MEDS: PROTONIX IV 40 MG IV (07:26)
[2024-04-27] MEDS: XOPENEX 1.25 MG INHALANT SOLUTION INH (07:43)
[2024-04-27] MEDS: ATROVENT NEBULES 0.5 MG INH (07:43)
--- NOTE | 2024-04-27 08:38 | PN.DE.MGMTRT ---
Insulin Management
- -
04/27/2024 Diabetes Management F/U:
33 year old male admitted on 04/21 with SIRS due to Acute severe pancreatitis with early necrosis by imaging.
No PMH. A1C on admission 6.1%, Cr trended up to 2.5-->0.9 today, eGFR 33.52--> >60 today.
Patient glucose trended up to the 200's, was been started on glycemic protocol and transitioned off drip to SQ insulin on 04/25.
Patient is awake alert and oriented, somnolent with limited attention span and falls back to sleep mid sentence, unable to fully discuss diabetes mgt.
Was started on full liquid diet on 04/25. Current diabetes regimen includes Lantus 10 units @ HS and NovoLog 8 units AC with high corrective
04/26 Premeal Glucose stable and in range 147 to 180, fasting 115 this AM
Pt unable to order lunch, Nurse concerned about level of alertness. Will make no changes to current regimen.
Discussed with pt's Nurse Slater and instructed to use corrective scale if pt is made NPO for procedure.
Diabetes History
- -
Type of Diabetes: 2 requiring insulin
Pre-Admission Diabetes Regimen
04/27/24
04:20
Creatinine 0.9
Lab Results
Hemoglobin A1c 6.1 % (4.0-5.6) H 04/22/24 08:31
Insulin Pump Settings
IP Diabetes Regimen
04/26/24 04/26/24 04/27/24
11:55 17:58 00:26
Glucose
POC Glucose 180 H 165 H 138 H
04/27/24 04/27/24 04/27/24
03:10 04:20 05:59
Glucose 115 H
POC Glucose 120 H 120 H
Patient Education
--- NOTE | 2024-04-27 08:48 | W.PN.HOSP.TC ---
Today's Communication/Plan
-
ID consult
repeat scan as per GI
PT/OT
Assessment / Plan
Assessment / Plan
pt is a 33 year old male
SIRS due to Acute severe pancreatitis with early necrosis by imaging--with leukocytosis likely reactive, improving acidosis, resolved KIRTI, stopped judd, apprec renal/GI/traffic police officer/cards, MRCP without stones --patient has rare alcohol use if any
and CAT scan does not show any dilated ducts or stones noted in the gallbladder--therefore etiology remains unclear--possibly due to lisinopril, will stop--advance diet as per GI-- pain control Q4H, and transitioning to oral pain control --
meropenem started by traffic police officer, now stopped--added bowel regimen
leukocytosis -- WBC steadily rising--now 21K--spoke with GI, repeating abdominal scan, consult ID
SVT--started 04/23--apprec cards--off cardizem drip--ECHO WNL-- thought due to PICC LINE--resolved
acute hypoxemic resp insufficiency--requiring O2 now--very SOB with movement-- daily CXR improving--continuing to improve, wean O2 to off
Essential hypertension--lisinopril on hold, will stop, changed to labetalol PO, may need adjustments
Gout--allopurinol on hold
ADHD--atomoxetine (Strattera) on hold
Prediabetes--will place on Accu-Cheks with sliding scale coverage, hemoglobin A1c 6.1
Lung nodule--noted on CAT scan--told pt and --will need follow-up as outpatient
morbid obesity -- BMI 45.9--apprec dietary--needs weight loss with close supervision
DVT prophylaxis
CODE STATUS--full code
consider transfer to tele
Anticipated Discharge: > 48 hours
Subjective/Interval History
-
Date of Service: April 27, 2024
pt sleeping--looks comfortable--woke him, no c/o
Objective Data
-
Labs:
Laboratory Results
04/27/24
04:20
WBC 21.7 H
Hgb 10.6 L
Hct 30.4 L
Plt Count 178
Sodium 132 L
Potassium 3.7
Chloride 98
Carbon Dioxide 29
BUN 17
Creatinine 0.9
Glucose 115 H
Calcium 8.0 L
Total Bilirubin 2.6 H
AST 92 H
ALT 44
Alkaline Phosphatase 90
Vital Signs:
max temp for 24 hours
04/26/24
23:15
Temp 99.1 F
Vital Signs
Temp Pulse Resp BP Pulse Ox
99 F 104 23 182/94 95
04/27/24 03:20 04/27/24 07:46 04/27/24 07:46 04/27/24 07:23 04/27/24 07:46
I&O
04/26/24 04/27/24 04/28/24
06:59 06:59 06:59
Intake Total 1683.8 / 1683.8 2400 / 2400
Output Total 1850 / 1850
Balance -166.2 / -166.2 2400 / 2400
Review of Systems
-
All other systems: Reviewed and negative
Physical Exam
-
General: Well Developed, Well Nourished, No Apparent Distress and Morbidly Obese
HEENT: Normocephalic and Atraumatic
Respiratory: Clear to Auscultation; Negative Wheezes or Rhonchi
Cardiac: Regular Rhythm and S1/S2; Negative Murmur
GI: Soft, Normal Bowel Sounds, Tender and Distended
Musculoskeletal: No Clubbing, No Cyanosis and No Edema
Neuro: Awake and Alert
Psych: Calm
--- NOTE | 2024-04-27 08:51 | CM ---
Patient seen at bedside with physician. Patient states he is feeling better, sleepy. Patient plan is home with family when medically appropriate. CM will continue to follow for discharge planning needs.
Plan; home with VN vs home with no needs.
[2024-04-27] MEDS: NOVOLOG FLEXPEN-HIGH RESISTANCE SC (09:01)
[2024-04-27] MEDS: OMNIPAQUE 50 ML PO (09:02)
--- NOTE | 2024-04-27 09:33 | PTCARENOTE ---
Patient was in severe pain on abdomen radiating to back at start of shift. Dilaudid 1mg IV administered and patient fell asleep. At this time patient is prepping for CT scan of abdomen. NPO at this time.
--- NOTE | 2024-04-27 12:07 | PTCARENOTE ---
Abdomen is distended, firm, patient burping. Had bowel movements during machinist 2nd shift. CT Scan completed. NPO at this time.
[2024-04-27 12:38] LABS: Glucose - Point of Care 149 mg/dl (70-99)
[2024-04-27] MEDS: NOVOLOG FLEXPEN SC (13:03)
[2024-04-27] MEDS: NOVOLOG FLEXPEN-HIGH RESISTANCE 1 UNITS SC (13:04)
[2024-04-27] MEDS: ZOFRAN 4 MG IV ×2 (13:11→19:27)
--- NOTE | 2024-04-27 13:14 | PTCARENOTE ---
Patient is tachycardic, tachypneic, orthopneic, objectively in distress. Notified GI team and hospitalist of CT scan findings and patients status. Patient kept NPO at this time until further notice. Dilaudid and Zofran administered.
--- NOTE | 2024-04-27 14:19 | W.PN.GI.CBS2 ---
Today's Communication / Plan
-
Clear liquid diet
ID eval
Assessment / Plan
-
33-year-old male with past medical history of ADHD, hypertension and gout presents to the emergency room with acute onset of nausea, vomiting and severe abdominal pain. Asked to evaluate for acute pancreatitis. No new medications, 3 alcoholic
beverages over the weekend, no chronic use. No known gallstones. CAT scan with no gallstones present. WBC 20.8, hemoglobin 16.1, hematocrit 46.2, platelets 191, sodium 138, potassium 3.8, chloride 108, CO2 19, BUN 14, creatinine 1.0, glucose 179,
total bilirubin 1.0, AST 60, ALT 64, alk phos 96, albumin 4.7, lipase greater than 4000. CT of the abdomen pelvis without oral or IV contrast showing gallbladder within normal limits. Pancreas is edematous with surrounding peripancreatic fluid
compatible with acute pancreatitis. There is no peripancreatic fluid collection. Pancreatic parenchyma is relatively uniform. No pancreatic mass or dilatation within the main pancreatic duct.
impression
-- Severe necrotizing pancreatitis- 1st episode. etiology unknown. Occasional alcohol use. MRCP no choledocholithiasis. Mildly elevated triglyceride. IgG4 normal. Was on lisinopril for hypertension
-- KIRTI- resolved
-- Hypoxemia- on O2 via NC
-- SVT- PICC line adjusted
repeat CT abd/ pel 04/27
IMPRESSION:
1. Severe peripancreatic edema, increased compared to prior CT, consistent with severe acute pancreatitis.
2. Intrapancreatic parenchymal edema, and scattered areas of hypoenhancement within the pancreatic body and tail, consistent with pancreatic necrosis.
3. Peripancreatic inflammatory fluid, which tracks along the left paracolic gutter into the pelvis, consistent with peripancreatic phlegmon and reactive free fluid. No definite well organized abscess is appreciated.
4. Diffuse mild small bowel dilation without transition point, suggestive of reactive ileus.
5. Mild bibasilar subsegmental atelectasis. Tiny left pleural effusion.
6. Severe diffuse fatty infiltration of the liver.
plan
Although patient was clinically doing better repeat imaging showing worsening changes from severe pancreatitis. CRP remains elevated . will continue to trend
Will keep him on clear liquids for now
Leukocytosis with no fever. CT abdomen/pelvis with worsening pancreatitis changes with fluid collection . patient was treated for few days with meropenem by ICU team and then was discontinued. Awaiting ID eval
Patient is on 2 L oxygen via nasal cannula sat around 95
Pain management as per medical team. Minimize opioid use
Bowel regimen
Encourage ambulation
will follow up
Total Time Spent with Patient (in minutes): 35
Subjective
Subjective
Date of Service: April 27, 2024
Complains of abdominal bloating. No nausea or vomiting. No fever. Had a liquid bowel movement yesterday
Objective
Data Reviewed
Laboratory Data:
Laboratory Results
04/27/24 04:20
04/27/24 04:20
Laboratory Results
PT 14.5 Sec (11.4-14.6) 04/23/24 11:37
INR 1.12 04/23/24 11:37
APTT 28.3 Sec (23.4-35.0) 04/23/24 11:37
Phosphorus 2.7 mg/dl (2.5-4.5) 04/24/24 03:33
Magnesium 2.2 mg/dl (1.6-2.3) 04/27/24 04:20
Total Bilirubin 2.6 mg/dl (0.2-1.3) H 04/27/24 04:20
AST 92 U/L (17-59) H 04/27/24 04:20
ALT 44 U/L (0-50) 04/27/24 04:20
Alkaline Phosphatase 90 U/L (38-126) 04/27/24 04:20
Lipase 916 U/L (23-300) H 04/27/24 04:20
Vital Signs and I&O:
Vital Signs
Temp Pulse Resp BP Pulse Ox
99.5 F 98 27 160/89 87
04/27/24 11:05 04/27/24 13:13 04/27/24 13:13 04/27/24 13:13 04/27/24 13:58
I&O
04/26/24 04/27/24 04/28/24
06:59 06:59 06:59
Intake Total 1683.8 / 1683.8 2400 / 2400 960 / 960
Output Total 1850 / 1850
Balance -166.2 / -166.2 2400 / 2400 960 / 960
Physical Exam
Physical Exam
GI: Soft, Distended and Tender (Nonspecific tenderness on deep palpation)
--- NOTE | 2024-04-27 14:44 | CON.ID ---
Consultation
-
Date/Time Consultation Requested: 04/27/2024 06:46
Date/Time Consultation Performed: 04/27/2024 1434
Requesting Provider: Dr. Cee
Performing Provider: Dr. Frausto
Reason for Consultation: Pancreatitis; leukocytosis
Chief Complaint / Past History
History of Present Illness
Handy Katz is a 33-year-old man being evaluated at the request of Dr. Cee in regards to pancreatitis and leukocytosis. History is obtained from chart review, along with patient interview.
The patient has little significant past medical history and presented to the emergency room at [facility] on 04/21 secondary to abdominal discomfort starting that a.m. He reports that he was driving to work and developed the acute onset of
intense left upper quadrant discomfort. He had associated nausea and vomiting and reported diaphoresis. CT imaging revealed acute pancreatitis, and the patient was admitted to the hospital for further care.
His hospital course thus far has been significant for MRCP imaging, and no choledocholithiasis was noted, although severe pancreatitis with necrosis was seen. The patient was placed on antibiotics from 04/23 through 04/24. His initial presenting
white count was approximately 20K, with initial trending down, but his white count has trended up over the past 3 days, and Infectious Diseases is asked to comment upon further antibiotic therapy.
Currently describes his abdominal discomfort has 10 out of 10, but intermittently less. He notes ongoing feeling of bloating. He denies any fevers or chills.
Past History
Past Medical History: None
Additional Past Medical History:
HTN
ADHD
Gout
Additional Past Surgical History:
Tonsillectomy
Allergy History:
No Known Allergies Allergy (Verified 04/21/24 08:04)
Medications Reviewed: Yes
Current Antibiotics:
None
Social History
Tobacco: Non-Smoker
Alcohol: Occasional
Drug: Marijuana
Personal:
Living: With Family
Employment: Not Employed
Family History
Family History: Not Pertinent
Review of Systems
Vital Signs
Temp Pulse Resp BP Pulse Ox
99.5 F 98 27 160/89 87
04/27/24 11:05 04/27/24 13:13 04/27/24 13:13 04/27/24 13:13 04/27/24 13:58
Physical Exam
Physical Exam
Constitutional: Acutely Ill, Non-toxic and Obese
Head: Normocephalic
Eyes: Pupils Equal, Pupils Round, No Conjunctival Hemorrhage and Sclera Anicteric
Oral: No Thrush
Cardiovascular: S1/S2; Negative S3/S4 or Murmur
Pulmonary: Clear; Negative Wheezes, Rales or Rhonchi
Gastrointestinal: Soft, Tender, Distended, Decreased Bowel Sounds, No Rebound and No Guarding
Extremities: Negative Edema, Cyanosis or Erythema
Skin: Warm and Dry; Negative Rash or Jaundice
Neurological: Awake, Alert and Oriented
Psychological: Calm
Lines: PICC (Right upper extremity; exit site without erythema)
Lab / Diagnostic Study Results
04/27/24 04:20
04/27/24 04:20
Abs Immat Gran (auto) 0.1 10^3/uL (0-0.05) H 04/21/24 08:09
Absolute Neuts (auto) 15.6 10^3/uL (1.4-6.5) H 04/21/24 08:09
Absolute Lymphs (auto) 3.5 10^3/uL (1.2-3.4) H 04/21/24 08:09
Absolute Monos (auto) 1.3 10^3/uL (0.1-0.6) H 04/21/24 08:09
Absolute Basos (auto) 0.1 10^3/uL (0-0.2) 04/21/24 08:09
Immature Gran % 0.4 % (0-0.5) 04/21/24 08:09
Neutrophils % 75.2 % (42.2-75.2) 04/21/24 08:09
Lymphocytes % 16.8 % (20.5-51.1) L 04/21/24 08:09
Monocytes % 6.1 % (1.7-9.3) 04/21/24 08:09
Eosinophils % 1.3 % (0-6) 04/21/24 08:09
Basophils % 0.2 % (0-2) 04/21/24 08:09
ESR 43 mm/hour (0-20) H 04/24/24 12:11
PT 14.5 Sec (11.4-14.6) 04/23/24 11:37
INR 1.12 04/23/24 11:37
C-Reactive Protein > 270.00 mg/L (0.0-10.00) H 04/27/24 04:20
Ur Squamous Epith Cells 0-2 /LPF (Few) 04/21/24 12:44
Microbiology Results
Micro:
04/23/24 11:22 Blood Culture - Preliminary
Blood/Venous No Growth in 4 days- Final report to follow
Imaging:
04/27/2024 CT abdomen/pelvis with contrast: Severe peripancreatic edema is noted to be increased when compared to prior CTs, consistent with severe acute pancreatitis. There is intra pancreatic parenchymal edema and scattered areas of
hypoenhancement within the pancreatic body and tail consistent with pancreatic necrosis. Peripancreatic a inflammatory fluid is noted to be tracking along the left paracolic gutter and into the pelvis, consistent with peripancreatic phlegmon and
reactive free fluid. No definite well-organized abscess is appreciated. There is also diffuse mid small bowel dilatation without transition point suggesting a reactive ileus. Please see full dictation for additional detail. Film personally
viewed.
Assessment / Plan
Severe acute pancreatitis with pancreatic necrosis.
- no evidence of gas on most recent imaging.
Leukocytosis (rising)
Abdominal pain
Suspected ileus
Recommendations:
Most recent imaging shows worsening necrosis, although patient without fever. It is difficult to follow his inflammatory markers as his CRP remains >270.
Would hold on antibiotic initiation at present and continue to follow clinically.
Ideally, would perform fine-needle aspiration of necrotic area prior to initiation of antibiotics to establish the microbiology, and to guide antimicrobial therapy
Will continue to monitor clinically.
Follow white count, temperature curve and CRP.
Will likely need additional imaging to follow-up for the development of any gas in the area or development of pseudocyst.
Care Review
Plan reviewed with: Other Provider (Hospitalist; GI)
--- NOTE | 2024-04-27 15:12 | VATNOTE ---
04/27 Patient has a RT DL PICC placed on 04/23 that was used for pressures. Patient is no longer on any IV medications that require a picc. However CT shows worsening pancreatitis and elevated WBC. ID wants to hold on discontinuing picc and reassess
picc need in 24hrs.
[2024-04-27 16:27] LABS: Glucose - Point of Care 204 mg/dl (70-99)
[2024-04-27] MEDS: LOVENOX 40 MG SC (16:37)
[2024-04-27] MEDS: NOVOLOG FLEXPEN-HIGH RESISTANCE 4 UNITS SC (16:44)
[2024-04-27] MEDS: TRANDATE 10 MG IV (16:51)
--- NOTE | 2024-04-27 19:30 | PTCARENOTE ---
pt is aaox3, abd very distended. pain 10/10. pt nauseous and vomiting 125ml of green bile. pt SOB at rest on 2 L. pt tachypneic, labored, RR=34, w/ expiratory wheezes - pt on 2L O2 SpO2=93. cg=842/71 p=109. gave him maya 15. see MAR RE;
administration of prn Zofran, and maya. informed WAREHOUSE RECEIVING SUPERVISOR Fredy of pt pain, pain management, and abd CT results. no new orders at this time.
--- NOTE | 2024-04-27 19:35 | PTCARENOTE ---
pt is aaox3, abd very distended. pain 10/10. pt nauseous and vomiting. see LARA RE; administration of prn Zofran, and maya. informed GEOGRAPHIC INFORMATION SCIENTIST Fredy of pt pain and abd CT results.
--- NOTE | 2024-04-27 22:06 | W.PN.UPDATE ---
Update Note
Progress Note Update
Repeat CT abd/pel reviewed with - No defined collections for endoscopic intervention . No fever. Leukocytosis is likely reactive . hold off on antibiotics.
continue supportive care . Discussed with ID/ hospitalist
--- NOTE | 2024-04-27 22:30 | PTCARENOTE ---
pt again c/o horrible pain. not due for any prn pain meds. informed POLE CLASSIFIER Fredy - 1x dose of Dilaudid 0.5mg w/ little effect. continued w/ pt prn pain meds. See MAR regarding administration times.
[2024-04-27] MEDS: MYLICON 80 MG PO (22:35)
[2024-04-27] MEDS: DILAUDID 0.5 MG IV (22:35)
[2024-04-27] MEDS: LANTUS 0.1 UNITS SC (23:33)
[2024-04-27 23:44] LABS: Glucose - Point of Care 140 mg/dl (70-99)
[2024-04-28] VITALS (17 sets, daily range): BP systolic 135–190; BP diastolic 58–135; PULSE 98; O2SAT 96–98; BMI 46.8
[2024-04-28] MEDS: DILAUDID 1 MG IV ×7 (00:12→23:58)
[2024-04-28] MEDS: TRANDATE 10 MG IV (00:13)
[2024-04-28] MEDS: ZOFRAN 4 MG IV ×2 (04:05→22:09)
[2024-04-28 04:44] LABS: Hematocrit 33.1 % (39.0-52.0); Hemoglobin 11.3 g/dL (13.0-18.0); Mean Corp Hgb Conc. 34.1 g/dL (33.0-37.0); Mean Corpuscular Hgb 28.6 pg (27.0-31.0); Mean Corpuscular Volume 83.8 fL (80.0-94.0); Mean Platelet Volume 10.3 fL (7.4-10.4); Platelet Count 228 10^3/uL (130-400); Red Blood Cell Count 3.95 10^6/uL (4.70-6.10); Red Cell Dist. Width 14.6 % (11.5-14.5); White Blood Cell Count 25.4 10^3/uL (4.8-10.8)
[2024-04-28 05:02] LABS: ALT (SGPT) 46 U/L (0-50); AST (SGOT) 72 U/L (17-59); Albumin 3.3 g/dl (3.5-5.0); Alkaline Phosphatase 120 U/L (38-126); Blood Urea Nitrogen 20 mg/dl (9-20); Calcium 8.6 mg/dl (8.4-10.2); Carbon Dioxide 29 mmol/L (22-30); Chloride 96 mmol/L (98-107); Estimated Creatinine Clearance > 125 ml/min; Glucose 151 mg/dl (70-99); Magnesium 2.4 mg/dl (1.6-2.3); Sodium 133 mmol/L (135-145); Total Bilirubin 2.5 mg/dl (0.2-1.3); Total Protein 6.1 g/dl (6.3-8.2); eGFR > 60.00
[2024-04-28 05:22] LABS: C-Reactive Protein > 270.00 mg/L (0.0-10.00)
[2024-04-28] MEDS: NSS (PRESERVATIVE FREE) 10 ML IV (08:20)
[2024-04-28] MEDS: OSCAL CAL 500 1000 MG PO ×2 (08:20→20:17)
[2024-04-28] MEDS: TRANDATE 100 MG PO ×2 (08:20→20:18)
[2024-04-28] MEDS: PROTONIX IV 40 MG IV (08:20)
[2024-04-28] MEDS: NOVOLOG FLEXPEN-HIGH RESISTANCE 2 UNITS SC ×2 (08:27→13:45)
[2024-04-28] MEDS: NOVOLOG FLEXPEN SC ×2 (08:27→18:16)
[2024-04-28 08:35] LABS: Glucose - Point of Care 158 mg/dl (70-99)
--- NOTE | 2024-04-28 09:59 | PTCARENOTE ---
Patient sitting in bedside chair, abdomen distended and firm with hyperactive bowel sounds. Patient belching and had loose stools in toilet. Pain treated with IV Dilaudid with relief. Vital signs improved today, bp 147/98, heart rate 94. Pulse ox
95% on 2 liters via nasal cannula. Patient unable to eat breakfast this morning, will notifiy
--- NOTE | 2024-04-28 10:26 | W.PN.GI.CBS2 ---
Today's Communication / Plan
-
Clinically improved today, feeling better
WBC remains elevated, likely reactive. Remains afebrile. Hold off on abx
Cont clears and advance as tolerated. Add Ensure clear
Assessment / Plan
-
33-year-old male with past medical history of ADHD, hypertension and gout presents to the emergency room with acute onset of nausea, vomiting and severe abdominal pain. Asked to evaluate for acute pancreatitis. No new medications, 3 alcoholic
beverages over the weekend, no chronic use. No known gallstones. CAT scan with no gallstones present. WBC 20.8, hemoglobin 16.1, hematocrit 46.2, platelets 191, sodium 138, potassium 3.8, chloride 108, CO2 19, BUN 14, creatinine 1.0, glucose 179,
total bilirubin 1.0, AST 60, ALT 64, alk phos 96, albumin 4.7, lipase greater than 4000. CT of the abdomen pelvis without oral or IV contrast showing gallbladder within normal limits. Pancreas is edematous with surrounding peripancreatic fluid
compatible with acute pancreatitis. There is no peripancreatic fluid collection. Pancreatic parenchyma is relatively uniform. No pancreatic mass or dilatation within the main pancreatic duct.
impression
-- Severe necrotizing pancreatitis- 1st episode. etiology unknown. Occasional alcohol use. MRCP no choledocholithiasis. Mildly elevated triglyceride. IgG4 normal. Was on lisinopril for hypertension
-- KIRTI- resolved
-- Hypoxemia- on O2 via NC
-- SVT- PICC line adjusted
repeat CT abd/ pel 04/27
IMPRESSION:
1. Severe peripancreatic edema, increased compared to prior CT, consistent with severe acute pancreatitis.
2. Intrapancreatic parenchymal edema, and scattered areas of hypoenhancement within the pancreatic body and tail, consistent with pancreatic necrosis.
3. Peripancreatic inflammatory fluid, which tracks along the left paracolic gutter into the pelvis, consistent with peripancreatic phlegmon and reactive free fluid. No definite well organized abscess is appreciated.
4. Diffuse mild small bowel dilation without transition point, suggestive of reactive ileus.
5. Mild bibasilar subsegmental atelectasis. Tiny left pleural effusion.
6. Severe diffuse fatty infiltration of the liver.
Subjective
Subjective
Date of Service: April 28, 2024
Feeling better. Passing BM, more normal. Appetite poor, only wants clears
Objective
Data Reviewed
Laboratory Data:
Laboratory Results
04/28/24 04:09
04/28/24 04:09
Laboratory Results
PT 14.5 Sec (11.4-14.6) 04/23/24 11:37
INR 1.12 04/23/24 11:37
APTT 28.3 Sec (23.4-35.0) 04/23/24 11:37
Phosphorus 2.7 mg/dl (2.5-4.5) 04/24/24 03:33
Magnesium 2.4 mg/dl (1.6-2.3) H 04/28/24 04:09
Total Bilirubin 2.5 mg/dl (0.2-1.3) H 04/28/24 04:09
AST 72 U/L (17-59) H 04/28/24 04:09
ALT 46 U/L (0-50) 04/28/24 04:09
Alkaline Phosphatase 120 U/L (38-126) 04/28/24 04:09
Lipase 916 U/L (23-300) H 04/27/24 04:20
Vital Signs and I&O:
Vital Signs
Temp Pulse Resp BP Pulse Ox
98.6 F 101 21 159/84 95
04/28/24 07:25 04/28/24 09:00 04/28/24 09:00 04/28/24 08:20 04/28/24 09:57
I&O
04/27/24 04/28/24 04/29/24
06:59 06:59 06:59
Intake Total 2400 / 2400 2400 / 2400 240 / 240
Output Total 1525 / 1525
Balance 2400 / 2400 875 / 875 240 / 240
Physical Exam
Physical Exam
GI: Soft, Distended and Tender (mild lower abd)
[2024-04-28] MEDS: NOVOLOG FLEXPEN 8 UNITS SC ×2 (10:58→13:45)
[2024-04-28] MEDS: NOVOLOG FLEXPEN-HIGH RESISTANCE SC (11:06)
--- NOTE | 2024-04-28 11:08 | PN.DE.MGMTRT ---
Insulin Management
- -
04/28/2024 Diabetes Management Follow up:
33 year old male admitted on 04/21 with SIRS due to Acute severe pancreatitis with early necrosis by imaging.
No PMH. A1C on admission 6.1%, Cr trended up to 2.5 now 1.0, eGFR >60 today.
Patient glucose trended up to the 200's, had been started on glycemic protocol and transitioned off drip to SQ insulin on 04/25.
Patient is awake alert and oriented, oob in chair, able to discuss diabetes management.
Was started on full liquid diet on 04/25. Current diabetes regimen includes Lantus 10 units @ HS and NovoLog 8 units AC with high corrective
04/26 Premeal Glucose stable and in range 120 to 204, fasting 115 this AM
Discussed with patients nurse, patient ate waterice and 8 ounces of apple juice, considering eating regular jello. Should have 8 units standing insulin.
Discussed with pt's Nurse Nohemy to use corrective scale if pt is made NPO or not able to eat and HOLD standing.
Diabetes History
- -
Pre-Admission Diabetes Regimen
04/28/24
04:09
Creatinine 1.0
Lab Results
Hemoglobin A1c 6.1 % (4.0-5.6) H 04/22/24 08:31
Insulin Pump Settings
IP Diabetes Regimen
04/27/24 04/27/24 04/27/24
12:26 16:11 23:32
Glucose
POC Glucose 149 H 204 H 140 H
04/28/24 04/28/24
04:09 08:24
Glucose 151 H
POC Glucose 158 H
Meal type: Breakfast
Meal type: Dinner
Amount consumed: 0
Amount consumed: 30%
Patient Education
[2024-04-28 13:23] LABS: Glucose - Point of Care 157 mg/dl (70-99)
--- NOTE | 2024-04-28 13:50 | W.PN.ID1 ---
Date of Service
Date of Service: April 28, 2024
Today's Communication
Continue to observe off antibiotics.
Assessment / Plan
Severe acute pancreatitis with pancreatic necrosis.
- no evidence of gas on most recent imaging.
Leukocytosis (rising)
Abdominal pain
Suspected ileus
Recommendations:
Most recent imaging shows worsening necrosis, although patient without fever. It is difficult to follow his inflammatory markers as his CRP remains >270.
Would hold on antibiotic initiation at present and continue to follow clinically.
If abx felt to be necessary, would perform fine-needle aspiration of necrotic area prior to initiation of antibiotics to establish the microbiology, and to guide antimicrobial therapy
Will continue to monitor clinically.
Follow white count, temperature curve and CRP.
Will likely need additional imaging to follow-up for the development of any gas in the area or development of pseudocyst.
����������������������������������������������������������
Chief Complaint
-: Other (Pancreatitis)
Subjective / Review of Systems
Seen and examined. Reports feeling overall about the same today. Notes ongoing abdominal discomfort.
Vital Signs / Physical Exam
Vital Signs
Vital Signs
Temp Pulse Resp BP Pulse Ox
98.1 F 97 20 147/98 98
04/28/24 11:20 04/28/24 10:00 04/28/24 10:00 04/28/24 10:00 04/28/24 11:00
Physical Exam
Constitutional: Comfortable, Acutely Ill, Non-toxic and Obese
Head: Normocephalic
Eyes: No Conjunctival Hemorrhage and Sclera Anicteric
Cardiovascular: S1/S2; Negative S3/S4 or Murmur
Pulmonary: Non Labored
Gastrointestinal: Soft, Tender, Distended, Decreased Bowel Sounds, No Rebound and No Guarding
Genito-Urinary: Negative Mckinnon
Neurological: Awake, Alert and Oriented
Psychological: Calm
Objective Data
Lab Data
Lab Results
04/28/24 04:09
04/28/24 04:09
ESR 43 mm/hour (0-20) H 04/24/24 12:11
PT 14.5 Sec (11.4-14.6) 04/23/24 11:37
INR 1.12 04/23/24 11:37
APTT 28.3 Sec (23.4-35.0) 04/23/24 11:37
Estimated Creat Clear > 125 ml/min 04/28/24 04:09
Total Bilirubin 2.5 mg/dl (0.2-1.3) H 04/28/24 04:09
AST 72 U/L (17-59) H 04/28/24 04:09
ALT 46 U/L (0-50) 04/28/24 04:09
Alkaline Phosphatase 120 U/L (38-126) 04/28/24 04:09
C-Reactive Protein > 270.00 mg/L (0.0-10.00) H 04/28/24 04:09
Most recent labs reviewed.
Micro Results:
04/23/24 11:22 Blood Culture - Final
Blood/Venous No Growth - Final Report
Imaging:
04/27/2024 CT abdomen/pelvis with contrast: Severe peripancreatic edema is noted to be increased when compared to prior CTs, consistent with severe acute pancreatitis. There is intra pancreatic parenchymal edema and scattered areas of
hypoenhancement within the pancreatic body and tail consistent with pancreatic necrosis. Peripancreatic a inflammatory fluid is noted to be tracking along the left paracolic gutter and into the pelvis, consistent with peripancreatic phlegmon and
reactive free fluid. No definite well-organized abscess is appreciated. There is also diffuse mid small bowel dilatation without transition point suggesting a reactive ileus. Please see full dictation for additional detail. Film personally
viewed.
--- NOTE | 2024-04-28 16:52 | W.PN.HOSP.TC ---
Today's Communication/Plan
-
Clear liquid diet and monitor for worsening of peripancreatic ileus.
Follow CBC.
Observe off antibiotics per
Adjust insulin regimen
Increase activity.
Assessment / Plan
Assessment / Plan
pt is a 33 year old male
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
and CAT scan does not show any dilated ducts or stones noted in the gallbladder--therefore etiology remains unclear--possibly due to lisinopril, will stop. Some improvement of abdominal pain. Exam relatively benign with distended abdomen. Noted
fluctuant WBC 21�25. Repeated CT scan 04/27 with severe pancreatitis including peripancreatic edema, necrosis and phlegmon without abscess. Continue to observe off antibiotics. Advance diet to clears and then as tolerates.
Peripancreatic ileus noted on imaging. Advance diet and monitor closely.
SVT--started 04/23--apprec cards--off cardizem drip--ECHO WNL-- thought due to PICC LINE--resolved
acute hypoxemic resp insufficiency--requiring O2 now--very SOB with movement-- daily CXR improving--continuing to improve, wean O2 to off
Essential hypertension elevated BP likely function of pain--lisinopril on hold, will stop, changed to labetalol PO, may need adjustments
Gout--allopurinol on hold
ADHD--atomoxetine (Strattera) on hold
Diabetes. Hemoglobin A1c 6.1. Not on any glucose lowering medications prior to presentation. Remains hyperglycemic. Continue basal bolus protocol. Initiated on Lantus/NovoLog. Adjust dose daily.
Lung nodule--noted on CAT scan--told pt and --will need follow-up as outpatient
morbid obesity -- BMI 45.9--apprec dietary--needs weight loss with close supervision
DVT prophylaxis
CODE STATUS--full code
consider transfer to tele
Anticipated Discharge: > 48 hours
Subjective/Interval History
-
Date of Service: April 28, 2024
Objective Data
-
Labs:
Laboratory Results
04/28/24
04:09
Sodium 133 L
Potassium 4.0
Chloride 96 L
Carbon Dioxide 29
BUN 20
Creatinine 1.0
Glucose 151 H
Calcium 8.6
Total Bilirubin 2.5 H
AST 72 H
ALT 46
Alkaline Phosphatase 120
Vital Signs:
Vital Signs
Temp Pulse Resp BP Pulse Ox
98.1 F 100 36 146/91 97
04/28/24 11:20 04/28/24 15:00 04/28/24 15:00 04/28/24 14:02 04/28/24 14:02
I&O
04/27/24 04/28/24 04/29/24
06:59 06:59 06:59
Intake Total 2400 / 2400 2400 / 2400 240 / 240
Output Total 1525 / 1525
Balance 2400 / 2400 875 / 875 240 / 240
Physical Exam
-
General: Well Developed, Well Nourished, No Apparent Distress and Morbidly Obese
HEENT: Normocephalic and Atraumatic
Respiratory: Clear to Auscultation; Negative Wheezes or Rhonchi
Cardiac: Regular Rhythm and S1/S2; Negative Murmur
GI: Soft, Normal Bowel Sounds, Tender and Distended
Musculoskeletal: No Clubbing, No Cyanosis and No Edema
Neuro: Awake and Alert
Psych: Calm
[2024-04-28 18:14] LABS: Glucose - Point of Care 111 mg/dl (70-99)
[2024-04-28] MEDS: LOVENOX 40 MG SC (18:15)
[2024-04-28] MEDS: NOVOLOG FLEXPEN-HIGH RESISTANCE 1 UNITS SC (18:16)
--- NOTE | 2024-04-28 19:45 | PTCARENOTE ---
pt aaox3, but very anxious. continues w/ abdominal pain 10/10, nausea, and loose bms. pt abd still distended and tender. Informed [employer] 1x dose Ativan given w/ some eff. Pulse ox 95% on 2 liters via nasal cannula. attempted pt on room air and de-stated
to 89%. pt RR 30. pt feels SOB/RENO. tachypneic just sitting in chair.
see NOV re: medication administration.
[2024-04-28] MEDS: ATIVAN 0.5 MG PO (20:17)
[2024-04-28 22:08] LABS: Glucose - Point of Care 135 mg/dl (70-99)
[2024-04-28] MEDS: LANTUS 0.1 UNITS SC (22:09)
[2024-04-28] MEDS: MYLICON 80 MG PO (22:09)
[2024-04-29] VITALS: BP 150/75
[2024-04-29 00:44] VITALS: BMI 46.1
--- NOTE | 2024-04-29 03:06 | DOWNTIME ---
There was a [employer]er Downtime on 04/29/2024 from 0100 to 04/29/2024 at 0252. Downtime documentation of patient's care, including medication administrations, has been reconciled in the electronic record per guidelines. Refer to the
patient's paper chart under the miscellaneous tab to see printed paper medication records and downtime forms.
[2024-04-29 03:46] VITALS: BP 154/87
[2024-04-29 04:14] VITALS: BP 164/82
[2024-04-29] MEDS: DILAUDID 1 MG IV (04:22)
[2024-04-29 04:52] LABS: Hematocrit 30.9 % (39.0-52.0); Hemoglobin 10.6 g/dL (13.0-18.0); Mean Corp Hgb Conc. 34.3 g/dL (33.0-37.0); Mean Corpuscular Hgb 29.4 pg (27.0-31.0); Mean Corpuscular Volume 85.6 fL (80.0-94.0); Mean Platelet Volume 10.3 fL (7.4-10.4); Platelet Count 217 10^3/uL (130-400); Red Blood Cell Count 3.61 10^6/uL (4.70-6.10); Red Cell Dist. Width 14.3 % (11.5-14.5); White Blood Cell Count 16.9 10^3/uL (4.8-10.8)
[2024-04-29 05:11] LABS: Blood Urea Nitrogen 20 mg/dl (9-20); Calcium 8.2 mg/dl (8.4-10.2); Carbon Dioxide 30 mmol/L (22-30); Chloride 93 mmol/L (98-107); Estimated Creatinine Clearance > 125 ml/min; Glucose 122 mg/dl (70-99); Potassium 3.8 mmol/L (3.5-5.1); Sodium 130 mmol/L (135-145); eGFR > 60.00
[2024-04-29 06:12] LABS: % Basophils 0.4 % (0-2); % Eosinophils 0.2 % (0-6); % Immature Granulocytes 1.4 % (0-0.5); % Lymphocytes 4.8 % (20.5-51.1); % Monocytes 6.8 % (1.7-9.3); % Neutrophils 86.4 % (42.2-75.2); Absolute Basophils 0.1 10^3/uL (0-0.2); Absolute Immature Granulocytes 0.2 10^3/uL (0-0.05); Absolute Lymphocytes 0.8 10^3/uL (1.2-3.4); Absolute Monocytes 1.2 10^3/uL (0.1-0.6); Absolute Neutrophils 14.6 10^3/uL (1.4-6.5); Nucleated Red Blood Cells % 0.4 % (-)
--- NOTE | 2024-04-29 08:31 | PN.DE.MGMTRT ---
Insulin Management
- -
04/29/2024 Diabetes Management Follow up:
33 year old male admitted on 04/21 with SIRS due to Acute severe pancreatitis with early necrosis by imaging.
No PMH. A1C on admission 6.1%, Cr trended up to 2.5 now 1.0, eGFR >60 today.
Patient glucose trended up to the 200's, had been started on glycemic protocol and transitioned off drip to SQ insulin on 04/25.
Current diabetes regimen includes Lantus 10 units @ HS and NovoLog 8 units AC with high corrective
Patient is awake alert and oriented, sitting up in bed, able to discuss diabetes management.
Was started on full liquid diet on 04/25, diet has been advanced to low fat.
States he is not hungry but is willing to try some food and has ordered for breakfast.
04/28 Premeal Glucose stable and in range 111 to 158, fasting 122 this AM
Will make no changes to current regimen. will monitor glucose trend and adjust insulin if necessary
Offered glucose monitor with instructions on 04/27 and again today but pt declined, stating that he is just starting to feel better and not in the right mind frame. Will attempt again tomorrow
Diabetes History
- -
Type of Diabetes: 2 requiring insulin
Pre-Admission Diabetes Regimen
04/29/24
04:19
Creatinine 0.9
Lab Results
Hemoglobin A1c 6.1 % (4.0-5.6) H 04/22/24 08:31
Insulin Pump Settings
IP Diabetes Regimen
04/28/24 04/28/24 04/28/24
13:11 18:13
Glucose
POC Glucose 158 H 157 H 111 H
04/28/24 04/29/24
22:07 04:19
Glucose 122 H
POC Glucose 135 H
Meal type: Dinner
Meal type: Breakfast
Amount consumed: 0
Amount consumed: 0
Patient Education
--- NOTE | 2024-04-29 09:00 | W.PN.GI.CBS2 ---
Today's Communication / Plan
-
Advance to low fat diet
Clinically improving
Assessment / Plan
-
33-year-old male with past medical history of ADHD, hypertension and gout presents to the emergency room with acute onset of nausea, vomiting and severe abdominal pain. Asked to evaluate for acute pancreatitis. No new medications, 3 alcoholic
beverages over the weekend, no chronic use. No known gallstones. CAT scan with no gallstones present. WBC 20.8, hemoglobin 16.1, hematocrit 46.2, platelets 191, sodium 138, potassium 3.8, chloride 108, CO2 19, BUN 14, creatinine 1.0, glucose 179,
total bilirubin 1.0, AST 60, ALT 64, alk phos 96, albumin 4.7, lipase greater than 4000. CT of the abdomen pelvis without oral or IV contrast showing gallbladder within normal limits. Pancreas is edematous with surrounding peripancreatic fluid
compatible with acute pancreatitis. There is no peripancreatic fluid collection. Pancreatic parenchyma is relatively uniform. No pancreatic mass or dilatation within the main pancreatic duct.
impression
-- Severe necrotizing pancreatitis- 1st episode. etiology unknown. Occasional alcohol use. MRCP no choledocholithiasis. Mildly elevated triglyceride. IgG4 normal. Was on lisinopril for hypertension
-- KIRTI- resolved
-- Hypoxemia- on O2 via NC
-- SVT- PICC line adjusted
repeat CT abd/ pel 04/27
IMPRESSION:
1. Severe peripancreatic edema, increased compared to prior CT, consistent with severe acute pancreatitis.
2. Intrapancreatic parenchymal edema, and scattered areas of hypoenhancement within the pancreatic body and tail, consistent with pancreatic necrosis.
3. Peripancreatic inflammatory fluid, which tracks along the left paracolic gutter into the pelvis, consistent with peripancreatic phlegmon and reactive free fluid. No definite well organized abscess is appreciated.
4. Diffuse mild small bowel dilation without transition point, suggestive of reactive ileus.
5. Mild bibasilar subsegmental atelectasis. Tiny left pleural effusion.
6. Severe diffuse fatty infiltration of the liver.
Subjective
Subjective
Date of Service: April 29, 2024
Abd pain improved. Feeling better, more of an appetite. Passing liquid stools
Objective
Data Reviewed
Laboratory Data:
Laboratory Results
04/29/24 04:19
04/29/24 04:19
Laboratory Results
PT 14.5 Sec (11.4-14.6) 04/23/24 11:37
INR 1.12 04/23/24 11:37
APTT 28.3 Sec (23.4-35.0) 04/23/24 11:37
Phosphorus 2.7 mg/dl (2.5-4.5) 04/24/24 03:33
Magnesium 2.4 mg/dl (1.6-2.3) H 04/28/24 04:09
Total Bilirubin 2.5 mg/dl (0.2-1.3) H 04/28/24 04:09
AST 72 U/L (17-59) H 04/28/24 04:09
ALT 46 U/L (0-50) 04/28/24 04:09
Alkaline Phosphatase 120 U/L (38-126) 04/28/24 04:09
Lipase 916 U/L (23-300) H 04/27/24 04:20
Vital Signs and I&O:
Vital Signs
Temp Pulse Resp BP Pulse Ox
99.0 F 98 26 164/82 98
04/29/24 04:05 04/29/24 05:00 04/29/24 05:00 04/29/24 04:14 04/29/24 04:14
I&O
04/28/24 04/29/24 04/30/24
06:59 06:59 06:59
Intake Total 2400 / 2400 1200 / 1200
Output Total 1525 / 1525 575 / 575
Balance 875 / 875 625 / 625
Physical Exam
Physical Exam
GI: Soft and Tender
[2024-04-29] MEDS: NOVOLOG FLEXPEN 8 UNITS SC (09:06)
[2024-04-29] MEDS: NOVOLOG FLEXPEN-HIGH RESISTANCE 1 UNITS SC (09:07)
[2024-04-29 09:13] LABS: Glucose - Point of Care 141 mg/dl (70-99)
[2024-04-29] MEDS: ROXICODONE 10 MG PO (09:13)
[2024-04-29] MEDS: PROTONIX IV 40 MG IV (09:13)
[2024-04-29] MEDS: OSCAL CAL 500 1000 MG PO ×2 (09:14→21:20)
[2024-04-29] MEDS: NSS (PRESERVATIVE FREE) 10 ML IV (09:14)
[2024-04-29] MEDS: TRANDATE 100 MG PO ×2 (09:14→21:20)
--- NOTE | 2024-04-29 09:20 | PTCARENOTE ---
Pt refuses to remain on tele monitor reporting it makes him feel very anxious and panicky. notiifed.
--- NOTE | 2024-04-29 09:45 | W.PN.ID1 ---
Date of Service
Date of Service: April 29, 2024
Today's Communication
Continue to observe closely off antibiotics.
Assessment / Plan
Severe acute pancreatitis with pancreatic necrosis.
- no evidence of gas on most recent imaging.
Leukocytosis
- some improvement today.
Abdominal pain
Suspected ileus
Recommendations:
Most recent imaging shows worsening necrosis, although patient without fever.
Continue to hold on antibiotic initiation at present and continue to follow clinically.
If abx felt to be necessary, would perform fine-needle aspiration of necrotic area prior to initiation of antibiotics to establish the microbiology, and to guide antimicrobial therapy
Will continue to monitor clinically.
Follow white count, temperature curve and CRP.
May need additional imaging to follow-up for the development of any gas in the area or development of pseudocyst.
����������������������������������������������������������
Chief Complaint
-: Other (Severe Pancreatitis)
Subjective / Review of Systems
Patient seen and examined. Reports feeling mildly improved today, with decreased abdominal discomfort. Patient reports feeling cold, but he has not had any fevers or shaking chills.
Vital Signs / Physical Exam
Vital Signs
Vital Signs
Temp Pulse Resp BP Pulse Ox
98.6 F 100 26 183/91 98
04/29/24 07:40 04/29/24 09:14 04/29/24 05:00 04/29/24 09:14 04/29/24 04:14
Physical Exam
Constitutional: Comfortable, Acutely Ill, Non-toxic and Obese
Head: Normocephalic
Eyes: No Conjunctival Hemorrhage and Sclera Anicteric
Cardiovascular: S1/S2; Negative S3/S4 or Murmur
Pulmonary: Non Labored
Gastrointestinal: Soft, Tender, Distended, Decreased Bowel Sounds, No Rebound and No Guarding
Genito-Urinary: Negative Mckinnon
Neurological: Awake, Alert and Oriented
Psychological: Calm
Objective Data
Lab Data
Lab Results
04/29/24 04:19
04/29/24 04:19
ESR 43 mm/hour (0-20) H 04/24/24 12:11
PT 14.5 Sec (11.4-14.6) 04/23/24 11:37
INR 1.12 04/23/24 11:37
APTT 28.3 Sec (23.4-35.0) 04/23/24 11:37
Estimated Creat Clear > 125 ml/min 04/29/24 04:19
Total Bilirubin 2.5 mg/dl (0.2-1.3) H 04/28/24 04:09
AST 72 U/L (17-59) H 04/28/24 04:09
ALT 46 U/L (0-50) 04/28/24 04:09
Alkaline Phosphatase 120 U/L (38-126) 04/28/24 04:09
C-Reactive Protein > 270.00 mg/L (0.0-10.00) H 04/28/24 04:09
Most recent labs reviewed.
Micro Results:
04/23/24 11:22 Blood Culture - Final
Blood/Venous No Growth - Final Report
Imaging:
04/27/2024 CT abdomen/pelvis with contrast: Severe peripancreatic edema is noted to be increased when compared to prior CTs, consistent with severe acute pancreatitis. There is intra pancreatic parenchymal edema and scattered areas of
hypoenhancement within the pancreatic body and tail consistent with pancreatic necrosis. Peripancreatic a inflammatory fluid is noted to be tracking along the left paracolic gutter and into the pelvis, consistent with peripancreatic phlegmon and
reactive free fluid. No definite well-organized abscess is appreciated. There is also diffuse mid small bowel dilatation without transition point suggesting a reactive ileus. Please see full dictation for additional detail. Film personally
viewed.
[2024-04-29 10:47] LABS: Glucose - Point of Care 154 mg/dl (70-99)
[2024-04-29] MEDS: NOVOLOG FLEXPEN SC ×2 (10:52→17:35)
[2024-04-29] MEDS: NOVOLOG FLEXPEN-HIGH RESISTANCE SC ×2 (10:53→17:34)
[2024-04-29 13:01] VITALS: BP 158/85
[2024-04-29 13:02] VITALS: BMI 46.2
--- NOTE | 2024-04-29 13:36 | PTCARENOTE ---
received patient from IMU to room 319-02. Pt AAOX3. pt complains of feeling sob, placed on 2L nasal cannula for patient comfort. lung sounds diminished in bases. abdomen round, distended. pt updated on plan of care, oriented to room and unit.
--- NOTE | 2024-04-29 14:49 | W.PN.HOSP.TC ---
Today's Communication/Plan
-
Low-fat diet
Monitor closely off antibiotics
Adjust insulin regimen
Transfer to [facility]
Assessment / Plan
Assessment / Plan
pt is a 33 year old male
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
and CAT scan does not show any dilated ducts or stones noted in the gallbladder--therefore etiology remains unclear--possibly due to lisinopril, will stop.
Overall improved with improved abdominal pain
WBC trending down 25�16
Advance to low-fat diet
Continue monitor closely off antibiotics.
Peripancreatic ileus noted on imaging. Advance diet and monitor closely.
SVT--started 04/23--apprec cards--off cardizem drip--ECHO WNL-- thought due to PICC LINE--resolved
acute hypoxemic resp insufficiency--requiring O2 now--very SOB with movement-- daily CXR improving--continuing to improve, wean O2 to off
Essential hypertension elevated BP likely function of pain--lisinopril on hold, will stop, changed to labetalol PO, may need adjustments
Gout--allopurinol on hold
ADHD--atomoxetine (Strattera) on hold
Diabetes. Hemoglobin A1c 6.1. Not on any glucose lowering medications prior to presentation. Remains hyperglycemic. Continue basal bolus protocol. Initiated on Lantus/NovoLog. Adjust dose daily.
Lung nodule--noted on CAT scan--told pt and --will need follow-up as outpatient
morbid obesity -- BMI 45.9--apprec dietary--needs weight loss with close supervision
DVT prophylaxis
CODE STATUS--full code
consider transfer to [facility]
Anticipated Discharge: 24 - 48 hours
Subjective/Interval History
-
Date of Service: April 29, 2024
Objective Data
-
Labs:
Laboratory Results
04/29/24
04:19
WBC 16.9 H
Hgb 10.6 L
Hct 30.9 L
Plt Count 217
Sodium 130 L
Potassium 3.8
Chloride 93 L
Carbon Dioxide 30
BUN 20
Creatinine 0.9
Glucose 122 H
Calcium 8.2 L
Vital Signs:
Vital Signs
Temp Pulse Resp BP Pulse Ox
99.0 F 98 17 158/85 96
04/29/24 13:01 04/29/24 13:01 04/29/24 13:01 04/29/24 13:01 04/29/24 13:44
I&O
04/28/24 04/29/24 04/30/24
06:59 06:59 06:59
Intake Total 2400 / 2400 1200 / 1200 480 / 480
Output Total 1525 / 1525 575 / 575
Balance 875 / 875 625 / 625 479 / 479
Physical Exam
-
General: Well Developed, Well Nourished, No Apparent Distress and Morbidly Obese
HEENT: Normocephalic and Atraumatic
Respiratory: Clear to Auscultation; Negative Wheezes or Rhonchi
Cardiac: Regular Rhythm and S1/S2; Negative Murmur
GI: Soft, Normal Bowel Sounds, Tender and Distended
Musculoskeletal: No Clubbing, No Cyanosis and No Edema
Neuro: Awake and Alert
Psych: Calm
[2024-04-29 15:00] VITALS: BP 157/88
--- NOTE | 2024-04-29 16:42 | CM ---
Patient with Dx SIRS due to Acute severe pancreatitis. Transfer to [facility] today. O2 2L. Diet advanced today. PT & OT; HH vs no needs.
CM continuing to follow for d/c needs.
Plan follow patient's mobility and offer VN as needed.
[2024-04-29 17:34] LABS: Glucose - Point of Care 137 mg/dl (70-99)
[2024-04-29] MEDS: LOVENOX 40 MG SC (17:35)
[2024-04-29 21:05] LABS: Glucose - Point of Care 152 mg/dl (70-99)
[2024-04-29] MEDS: ROXICODONE 15 MG PO (21:13)
[2024-04-29] MEDS: LANTUS 0.1 UNITS SC (21:13)
[2024-04-29 23:36] VITALS: BP 149/84
[2024-04-30] MEDS: ATIVAN 0.5 MG PO (00:40)
[2024-04-30 05:31] LABS: Hematocrit 29.2 % (39.0-52.0); Hemoglobin 9.8 g/dL (13.0-18.0); Mean Corp Hgb Conc. 33.6 g/dL (33.0-37.0); Mean Corpuscular Volume 83.4 fL (80.0-94.0); Mean Platelet Volume 9.9 fL (7.4-10.4); Platelet Count 255 10^3/uL (130-400); Red Cell Dist. Width 14.2 % (11.5-14.5); White Blood Cell Count 13.8 10^3/uL (4.8-10.8)
[2024-04-30 05:39] LABS: ALT (SGPT) 42 U/L (0-50); AST (SGOT) 67 U/L (17-59); Albumin 3.1 g/dl (3.5-5.0); Alkaline Phosphatase 102 U/L (38-126); Blood Urea Nitrogen 14 mg/dl (9-20); Calcium 8.1 mg/dl (8.4-10.2); Carbon Dioxide 31 mmol/L (22-30); Chloride 94 mmol/L (98-107); Estimated Creatinine Clearance > 125 ml/min; Glucose 134 mg/dl (70-99); Potassium 3.8 mmol/L (3.5-5.1); Sodium 130 mmol/L (135-145); Total Bilirubin 1.7 mg/dl (0.2-1.3); Total Protein 5.8 g/dl (6.3-8.2); eGFR > 60.00
[2024-04-30 05:46] VITALS: BMI 45.5
[2024-04-30] MEDS: ROXICODONE 15 MG PO (05:47)
[2024-04-30 06:00] VITALS: BMI 45.5
[2024-04-30 06:45] LABS: % Basophils 0.4 % (0-2); % Eosinophils 0.4 % (0-6); % Immature Granulocytes 1.7 % (0-0.5); % Lymphocytes 6.4 % (20.5-51.1); % Monocytes 9.7 % (1.7-9.3); % Neutrophils 81.4 % (42.2-75.2); Absolute Basophils 0.1 10^3/uL (0-0.2); Absolute Eosinophils 0.1 10^3/uL (0-0.7); Absolute Immature Granulocytes 0.2 10^3/uL (0-0.05); Absolute Lymphocytes 0.9 10^3/uL (1.2-3.4); Absolute Monocytes 1.3 10^3/uL (0.1-0.6); Absolute Neutrophils 11.2 10^3/uL (1.4-6.5); Nucleated Red Blood Cells % 0.3 % (-)
--- NOTE | 2024-04-30 07:34 | PN.DE.MGMTRT ---
Insulin Management
- -
04/30/2024 Diabetes Management Follow up:
33 year old male admitted on 04/21 with SIRS due to Acute severe pancreatitis with early necrosis by imaging.
No PMH. A1C on admission 6.1%, Cr trended up to 2.5 now .8, eGFR >60 today.
Patient glucose trended up to the 200's, had been started on glycemic protocol and transitioned off drip to SQ insulin on 04/25.
Current diabetes regimen includes Lantus 10 units @ HS and NovoLog 8 units AC with high corrective
Patient is awake alert and oriented, sitting up in bed, able to discuss diabetes management.
Was started on full liquid diet on 04/25, diet has been advanced to low fat, 2000 calorie.
States he is not hungry chart indicates he did not eat dinner but ate 100% of lunch 04/29.
04/29 Premeal Glucose stable and in range 137 to 154, fasting 134 this AM
Will change high corrective to low corrective. He received corrective novolog 04/29, did receive 8 units novolog with breakfast; Patient had no insulin for 98 grams of cho, pre lunch glucose 169. Will reduce AC novolog to 4 units.
Offered glucose monitor with instructions on 04/27 and again today but pt declined, stating that he is just starting to feel better and not in the right mind frame. 04/29 Provided and instructed on steps for glucose monitor, able to demonstrate with
verbal cues. Also instructed on prefilled pen action of insulin and steps for self injection. Discussed with patient nurse patient to self inject with nursing supervision.
Diabetes History
- -
Pre-Admission Diabetes Regimen
04/30/24
04:56
Creatinine 0.8
Lab Results
Hemoglobin A1c 6.1 % (4.0-5.6) H 04/22/24 08:31
Insulin Pump Settings
IP Diabetes Regimen
04/29/24 04/29/24 04/29/24
08:57 10:36 17:33
Glucose
POC Glucose 141 H 154 H 137 H
04/29/24 04/30/24
21:03 04:56
Glucose 134 H
POC Glucose 152 H
Meal type: Lunch
Amount consumed: 100%
Patient Education
[2024-04-30 07:35] LABS: Glucose - Point of Care 137 mg/dl (70-99)
[2024-04-30] MEDS: NOVOLOG FLEXPEN-HIGH RESISTANCE SC (07:47)
[2024-04-30] MEDS: NOVOLOG FLEXPEN SC ×3 (07:48→15:16)
[2024-04-30] MEDS: TRANDATE 100 MG PO ×2 (07:49→20:38)
[2024-04-30] MEDS: PROTONIX IV 40 MG IV (07:49)
[2024-04-30] MEDS: NOVOLOG FLEXPEN-LOW RESISTANCE SC ×2 (07:49→18:05)
[2024-04-30] MEDS: NSS (PRESERVATIVE FREE) 10 ML IV (07:49)
[2024-04-30] MEDS: OSCAL CAL 500 1000 MG PO ×2 (07:51→20:38)
[2024-04-30] MEDS: FLUSH (NSS) 2 FLUSH IV (07:51)
[2024-04-30 08:28] VITALS: BP 155/69
--- NOTE | 2024-04-30 10:18 | W.PN.GI.CBS2 ---
Addendum entered and electronically signed by Jd Hale MD 04/30/24 13:58:
I saw and evaluated the patient. I reviewed the resident�s note and agree with findings and plan as documented in the resident�s note.
Pt feeling better. Tolerating low fat diet, though only able to eat small amounts
ABD soft nontender
REC:
Now stable from pancreatitis standpoint
Told pt to f/u with GI outpt (appt in d/c instructions)
Will need f/u imaging in about 1-2 months to assess pancreas after this attack
No etiology found
Will sign off for now. Please call back if needed
Original Note:
Today's Communication / Plan
-
Patient shows clinical improvement. WBC count is trending down. LFTs stable and bili trending down. No fevers overnight.
- Patient is clear for d/c from GI standpoint
- A follow-up appt has been set for patient on 06/09 for possible outpatient MRI to eval pseudocyst/ collection
Assessment / Plan
-
33-year-old male with past medical history of ADHD, hypertension and gout presents to the emergency room with acute onset of nausea, vomiting and severe abdominal pain. Asked to evaluate for acute pancreatitis. No new medications, 3 alcoholic
beverages over the weekend, no chronic use. No known gallstones. CAT scan with no gallstones present. CT of the abdomen pelvis without oral or IV contrast showing gallbladder within normal limits. Pancreas is edematous with surrounding
peripancreatic fluid compatible with acute pancreatitis. There is no peripancreatic fluid collection. Pancreatic parenchyma is relatively uniform. No pancreatic mass or dilatation within the main pancreatic duct.
impression
-- Severe necrotizing pancreatitis- 1st episode. etiology unknown. Occasional alcohol use. MRCP no choledocholithiasis. Mildly elevated triglyceride. IgG4 normal. Was on lisinopril for hypertension
-- KIRTI- resolved
-- Hypoxemia- resolved (94% on room air)
-- SVT- PICC line adjusted
repeat CT abd/ pel 04/27
IMPRESSION:
1. Severe peripancreatic edema, increased compared to prior CT, consistent with severe acute pancreatitis.
2. Intrapancreatic parenchymal edema, and scattered areas of hypoenhancement within the pancreatic body and tail, consistent with pancreatic necrosis.
3. Peripancreatic inflammatory fluid, which tracks along the left paracolic gutter into the pelvis, consistent with peripancreatic phlegmon and reactive free fluid. No definite well organized abscess is appreciated.
4. Diffuse mild small bowel dilation without transition point, suggestive of reactive ileus.
5. Mild bibasilar subsegmental atelectasis. Tiny left pleural effusion.
6. Severe diffuse fatty infiltration of the liver.
Subjective
Subjective
Date of Service: April 30, 2024
Patient mentions he is feeling much better. He has some occasional midgastric pain but is significantly less than before. He was able to tolerate his breakfast w/o any n/v and fully ate his breakfast. Had a couple of BMs since yesterday (3 were
loose and one was formed). No fevers/ chills overnight.
Objective
Data Reviewed
Laboratory Data:
Laboratory Results
04/30/24 04:56
04/30/24 04:56
Laboratory Results
PT 14.5 Sec (11.4-14.6) 04/23/24 11:37
INR 1.12 04/23/24 11:37
APTT 28.3 Sec (23.4-35.0) 04/23/24 11:37
Phosphorus 2.7 mg/dl (2.5-4.5) 04/24/24 03:33
Magnesium 2.4 mg/dl (1.6-2.3) H 04/28/24 04:09
Total Bilirubin 1.7 mg/dl (0.2-1.3) H 04/30/24 04:56
AST 67 U/L (17-59) H 04/30/24 04:56
ALT 42 U/L (0-50) 04/30/24 04:56
Alkaline Phosphatase 102 U/L (38-126) 04/30/24 04:56
Lipase 916 U/L (23-300) H 04/27/24 04:20
Vital Signs and I&O:
Vital Signs
Temp Pulse Resp BP Pulse Ox
99.4 F 106 20 155/69 94
04/30/24 08:28 04/30/24 08:28 04/30/24 08:28 04/30/24 08:28 04/30/24 08:32
I&O
04/29/24 04/30/24 05/01/24
06:59 06:59 06:59
Intake Total 1200 / 1200 660 / 660
Output Total 575 / 575
Balance 625 / 625 659 / 659
Physical Exam
Physical Exam
HEENT: Anicteric and Moist mucous membranes
Cardiology: Normal Sinus Rhythm, S1 and S2
Pulmonary: Clear and Other (tachypneic)
GI: Soft, Distended and Non Tender
[2024-04-30 12:05] LABS: Glucose - Point of Care 169 mg/dl (70-99)
--- NOTE | 2024-04-30 14:44 | W.PN.HOSP.TC ---
Today's Communication/Plan
-
Monitor on low-fat diet
Monitor oral intake adjust insulin regimen.
Diabetes education.
Assessment / Plan
Assessment / Plan
SIRS due to Acute severe pancreatitis with early necrosis by imaging--with leukocytosis likely reactive, improving acidosis, resolved KIRTI, stopped judd, apprec renal/GI/mission assessment specialist/cards, MRCP without stones --patient has rare alcohol use if any
and CAT scan does not show any dilated ducts or stones noted in the gallbladder--therefore etiology remains unclear--possibly due to lisinopril, will stop.
Overall improved with improved abdominal pain
WBC trending down 25�18
Advance to low-fat diet
Continue monitor closely off antibiotics.
Peripancreatic ileus noted on imaging. Advance diet and monitor closely.
SVT--started 04/23--apprec cards--off cardizem drip--ECHO WNL-- thought due to PICC LINE--resolved
acute hypoxemic resp insufficiency--requiring O2 now--very SOB with movement-- daily CXR improving--continuing to improve, wean O2 to off
Essential hypertension elevated BP likely function of pain--lisinopril on hold, will stop, changed to labetalol PO, may need adjustments
Gout--allopurinol on hold
ADHD--atomoxetine (Strattera) on hold
Diabetes. Hemoglobin A1c 6.1. Not on any glucose lowering medications prior to presentation. Remains hyperglycemic. Continue basal bolus protocol. Initiated on Lantus/NovoLog. Adjust dose daily. Continue patient education. Given severe
pancreatitis, most optimal option would be with insulin. Most likely will be discharged on long-acting insulin, outpatient endocrinology follow-up adjusting regimen, possibly transition off to oral glucose lowering medications.
Lung nodule--noted on CAT scan--told pt and --will need follow-up as outpatient
morbid obesity -- BMI 45.9--apprec dietary--needs weight loss with close supervision
DVT prophylaxis
CODE STATUS--full code
Anticipated Discharge: 24 - 48 hours
Subjective/Interval History
-
Date of Service: April 30, 2024
Objective Data
-
Labs:
Laboratory Results
04/30/24
04:56
WBC 13.8 H
Hgb 9.8 L
Hct 29.2 L
Plt Count 255
Sodium 130 L
Potassium 3.8
Chloride 94 L
Carbon Dioxide 31 H
BUN 14
Creatinine 0.8
Glucose 134 H
Calcium 8.1 L
Total Bilirubin 1.7 H
AST 67 H
ALT 42
Alkaline Phosphatase 102
Vital Signs:
Vital Signs
Temp Pulse Resp BP Pulse Ox
99.4 F 106 20 155/69 94
04/30/24 08:28 04/30/24 08:28 04/30/24 08:28 04/30/24 08:28 04/30/24 08:32
I&O
04/29/24 04/30/24 05/01/24
06:59 06:59 06:59
Intake Total 1200 / 1200 660 / 660
Output Total 575 / 575
Balance 625 / 625 659 / 659
Physical Exam
-
General: Well Developed, Well Nourished, No Apparent Distress and Morbidly Obese
HEENT: Normocephalic and Atraumatic
Respiratory: Clear to Auscultation; Negative Wheezes or Rhonchi
Cardiac: Regular Rhythm and S1/S2; Negative Murmur
GI: Soft, Normal Bowel Sounds, Tender and Distended
Musculoskeletal: No Clubbing, No Cyanosis and No Edema
Neuro: Awake and Alert
Psych: Calm
[2024-04-30 15:01] VITALS: BP 144/93
[2024-04-30] MEDS: NOVOLOG FLEXPEN 4 UNITS SC ×2 (15:12→18:04)
[2024-04-30] MEDS: NOVOLOG FLEXPEN-LOW RESISTANCE 1 UNITS SC (15:13)
--- NOTE | 2024-04-30 15:14 | W.PN.ID1 ---
Date of Service
Date of Service: April 30, 2024
Today's Communication
Continue to observe off antibiotics.
Assessment / Plan
Severe acute pancreatitis with pancreatic necrosis.
- no evidence of gas on most recent imaging.
Leukocytosis
- some improvement today.
Abdominal pain
Suspected ileus
Recommendations:
Most recent imaging shows worsening necrosis, although patient without fever.
Overall, patient appears clinically improved, though.
Continue to hold on antibiotic initiation at present and continue to follow clinically.
May need additional imaging to follow-up for the development of any gas in the area or development of pseudocyst.
����������������������������������������������������������
Chief Complaint
-: Other (Severe Pancreatitis)
Subjective / Review of Systems
Reports overall feeling improved. Abdomen still bloated, but discomfort now 11/16, down from 810
Review of Systems: No Fever and No Chills
Vital Signs / Physical Exam
Vital Signs
Vital Signs
Temp Pulse Resp BP Pulse Ox
99.2 F 104 18 144/93 93
04/30/24 15:01 04/30/24 15:01 04/30/24 15:01 04/30/24 15:01 04/30/24 15:01
Physical Exam
Constitutional: No Acute Distress, Comfortable and Non-toxic
Eyes: Pupils Equal, Pupils Round, No Conjunctival Hemorrhage and Sclera Anicteric
Cardiovascular: S1/S2; Negative S3/S4
Pulmonary: Non Labored
Gastrointestinal: Soft, Non Tender, Non Distended, Normal Bowel Sounds, No Rebound and No Guarding
Neurological: Awake and Alert
Psychological: Calm
Objective Data
Lab Data
Lab Results
04/30/24 04:56
04/30/24 04:56
ESR 43 mm/hour (0-20) H 04/24/24 12:11
PT 14.5 Sec (11.4-14.6) 04/23/24 11:37
INR 1.12 04/23/24 11:37
APTT 28.3 Sec (23.4-35.0) 04/23/24 11:37
Estimated Creat Clear > 125 ml/min 04/30/24 04:56
Total Bilirubin 1.7 mg/dl (0.2-1.3) H 04/30/24 04:56
AST 67 U/L (17-59) H 04/30/24 04:56
ALT 42 U/L (0-50) 04/30/24 04:56
Alkaline Phosphatase 102 U/L (38-126) 04/30/24 04:56
C-Reactive Protein > 270.00 mg/L (0.0-10.00) H 04/28/24 04:09
Most recent labs reviewed.
Micro Results:
04/23/24 11:22 Blood Culture - Final
Blood/Venous No Growth - Final Report
Imaging:
04/27/2024 CT abdomen/pelvis with contrast: Severe peripancreatic edema is noted to be increased when compared to prior CTs, consistent with severe acute pancreatitis. There is intra pancreatic parenchymal edema and scattered areas of
hypoenhancement within the pancreatic body and tail consistent with pancreatic necrosis. Peripancreatic a inflammatory fluid is noted to be tracking along the left paracolic gutter and into the pelvis, consistent with peripancreatic phlegmon and
reactive free fluid. No definite well-organized abscess is appreciated. There is also diffuse mid small bowel dilatation without transition point suggesting a reactive ileus. Please see full dictation for additional detail. Film personally
viewed.
[2024-04-30 15:57] VITALS: BP 154/86; PULSE 105; O2SAT 95
[2024-04-30 16:28] LABS: Glucose - Point of Care 135 mg/dl (70-99)
[2024-04-30] MEDS: LOVENOX 40 MG SC (18:04)
[2024-04-30] MEDS: TYLENOL 650 MG PO (21:21)
[2024-04-30 21:31] LABS: Glucose - Point of Care 125 mg/dl (70-99)
[2024-04-30] MEDS: LANTUS 0.1 UNITS SC (22:52)
[2024-04-30 23:20] VITALS: BP 124/68
[2024-05-01 06:00] VITALS: BMI 44.6
[2024-05-01 07:58] VITALS: BP 155/89
[2024-05-01 09:03] LABS: Hematocrit 29.8 % (39.0-52.0); Hemoglobin 10.2 g/dL (13.0-18.0); Mean Corp Hgb Conc. 34.2 g/dL (33.0-37.0); Mean Corpuscular Hgb 29.1 pg (27.0-31.0); Mean Corpuscular Volume 85.1 fL (80.0-94.0); Platelet Count 297 10^3/uL (130-400); Red Cell Dist. Width 14.2 % (11.5-14.5); White Blood Cell Count 13.1 10^3/uL (4.8-10.8)
[2024-05-01] MEDS: PROTONIX 40 MG PO (09:11)
[2024-05-01] MEDS: TRANDATE 100 MG PO (09:11)
[2024-05-01] MEDS: ROXICODONE 15 MG PO (09:16)
[2024-05-01] MEDS: OSCAL CAL 500 1000 MG PO (09:21)
[2024-05-01 09:27] LABS: ALT (SGPT) 43 U/L (0-50); AST (SGOT) 71 U/L (17-59); Albumin 3.1 g/dl (3.5-5.0); Alkaline Phosphatase 106 U/L (38-126); Blood Urea Nitrogen 11 mg/dl (9-20); Calcium 7.9 mg/dl (8.4-10.2); Carbon Dioxide 25 mmol/L (22-30); Chloride 96 mmol/L (98-107); Estimated Creatinine Clearance > 125 ml/min; Glucose 127 mg/dl (70-99); Potassium 3.9 mmol/L (3.5-5.1); Sodium 134 mmol/L (135-145); Total Bilirubin 1.4 mg/dl (0.2-1.3); Total Protein 5.8 g/dl (6.3-8.2); eGFR > 60.00
[2024-05-01 09:28] LABS: % Basophils 0.2 % (0-2); % Eosinophils 0.5 % (0-6); % Immature Granulocytes 1.3 % (0-0.5); % Lymphocytes 5.7 % (20.5-51.1); % Monocytes 10.6 % (1.7-9.3); % Neutrophils 81.7 % (42.2-75.2); Absolute Eosinophils 0.1 10^3/uL (0-0.7); Absolute Immature Granulocytes 0.2 10^3/uL (0-0.05); Absolute Lymphocytes 0.8 10^3/uL (1.2-3.4); Absolute Monocytes 1.4 10^3/uL (0.1-0.6); Absolute Neutrophils 10.7 10^3/uL (1.4-6.5); Nucleated Red Blood Cells % 0.2 % (-)
--- NOTE | 2024-05-01 09:29 | PN.DE.MGMTRT ---
Insulin Management
- -
05/01/2024 Diabetes Management F/U:
33 year old male admitted on 04/21 with SIRS due to Acute severe pancreatitis with early necrosis by imaging.
No PMH. A1C on admission 6.1%, Cr trended up to 2.5 now .8, eGFR >60 today.
Patient glucose trended up to the 200's, had been started on glycemic protocol and transitioned off drip to SQ insulin on 04/25.
Current diabetes regimen includes Lantus 10 units @ HS and NovoLog 8 units AC with high corrective
Patient is awake alert and oriented, sitting up in bed, able to discuss diabetes management.
Was started on full liquid diet on 04/25, diet has been advanced to low fat, 2000 calorie.
States he is not hungry chart indicates he did not eat dinner but ate 100% of lunch 04/29.
04/29 Premeal Glucose stable and in range 135 to 169, fasting 127 this AM
Will make no changes to current regimen: Lantus 10 units @ HS, NovoLog 4 units AC and low corrective with meals.
Offered a new glucose monitor- OneTouch that is covered by his insurance with instructions and instructed on steps for glucose monitor, able to demonstrate with verbal cues. Also reviewed instructions on prefilled pen action of insulin, steps for
self injection and treatment for Hypoglycemia.
Updated Dr. Patel and Pt's nurse. Patient to continue self injecting at all meal times with nursing supervision.
Pt stable for d/c from diabetes standpoint, Rx meds and supplies added to ambulatory orders.
Diabetes History
- -
Type of Diabetes: 2 requiring insulin
Pre-Admission Diabetes Regimen
05/01/24
08:03
Creatinine 0.7
Lab Results
Hemoglobin A1c 6.1 % (4.0-5.6) H 04/22/24 08:31
Insulin Pump Settings
IP Diabetes Regimen
04/30/24 04/30/24 04/30/24
12:03 16:27 21:30
Glucose
POC Glucose 169 H 135 H 125 H
05/01/24
08:03
Glucose 127 H
POC Glucose
Meal type: Lunch
Meal type: Breakfast
Amount consumed: 100%
Amount consumed: 100%
Patient Education
[2024-05-01 09:30] LABS: Glucose - Point of Care 117 mg/dl (70-99)
[2024-05-01] MEDS: NOVOLOG FLEXPEN-LOW RESISTANCE SC ×2 (09:36→13:02)
[2024-05-01] MEDS: NOVOLOG FLEXPEN 4 UNITS SC ×2 (09:36→13:02)
[2024-05-01 12:10] LABS: Glucose - Point of Care 146 mg/dl (70-99)
--- NOTE | 2024-05-01 12:43 | W.DS.TRANS ---
DC Summary - [employer]
-
Discharge Instructions:
Discharge Diagnosis/Procedures Severe pancreatitis
Diet Diabetic, Carb Controlled
Instructions:
Stand-Alone Forms:
Changes to Home Medications: Yes
Discharge Medications:
DC Medications w/original date entered in [facility]
allopurinol 100 mg tablet 100 mg PO DAILY Gout 07/25/23
atomoxetine 18 mg capsule 18 mg PO DAILY attention deficit disorde 07/25/23
blood sugar diagnostic (BringgTouch Verio test strips) #130 ea 05/01/24
insulin glargine 100 unit/mL (3 mL) subcutaneous pen (Lantus Solostar U-100 Insulin) 10 unit (0.1 mL) SC HS #5 ea 05/01/24
insulin lispro 100 unit/mL subcutaneous pen (Humalog KwikPen (U-100) Insulin) 4 unit (0.04 mL) SC AC Diabetes #5 ea 05/01/24
labetalol 100 mg tablet 100 mg PO BID #60 tabs 05/01/24
lancets 30 gauge (BringgTouch Delica Plus Lancet) #130 ea 05/01/24
oxycodone 10 mg tablet 10 mg PO Q4HPRN PRN MODERATE PAIN #30 tabs 05/01/24
pantoprazole 40 mg tablet,delayed release 40 mg PO DAILY #30 tabs 05/01/24
pen needle, diabetic 32 gauge x 5/32' (BD Ultra-Fine Nancy Pen Needle) #300 ea 05/01/24
polyethylene glycol 3350 17 gram oral powder packet (HealthyLax) 17 g PO DAILYPRN PRN constipation #30 ea 05/01/24
simethicone 80 mg chewable tablet 80 mg PO QIDPRN PRN gas, chest/abdominal pain #60 tabs 05/01/24
Home Medication Changes
Lisinopril stopped
Insulin initiated
Labetalol initiated.
Pending Results: No
--- NOTE | 2024-05-01 12:59 | CM ---
Patient seen bedside, reports no needs to CM upon discharge. CM reviewed with nurse, patient clear for discharge. Patient reports he will call for transportation home. CM will continue to follow for all discharge planning needs.
Plan; home with family.
[2024-05-01 13:53] VITALS: BP 163/89
--- NOTE | 2024-05-01 13:58 | W.PN.ID1 ---
Date of Service
Date of Service: May 01, 2024
Today's Communication
Continue off antibiotics.
Assessment / Plan
Severe acute pancreatitis with pancreatic necrosis.
- no evidence of gas on most recent imaging.
Leukocytosis
- some improvement today.
Abdominal pain
Suspected ileus
Recommendations:
Overall improved.
Continue off antibiotics.
Little more to offer from a Infectious Diseases standpoint.
Will sign off and see again at your request.
����������������������������������������������������������
Chief Complaint
-: Other (Severe Pancreatitis)
Subjective / Review of Systems
Patient overall feeling improved. Still with some noted bloating, but pain markedly improved.
Vital Signs / Physical Exam
Vital Signs
Vital Signs
Temp Pulse Resp BP Pulse Ox
98.5 F 101 24 163/89 96
05/01/24 13:53 05/01/24 13:53 05/01/24 13:53 05/01/24 13:53 05/01/24 13:53
Physical Exam
Constitutional: No Acute Distress, Comfortable and Non-toxic
Eyes: Sclera Anicteric
Gastrointestinal: Distended
Extremities: Negative Erythema
Neurological: Awake, Alert and Oriented
Objective Data
Lab Data
Lab Results
05/01/24 08:03
05/01/24 08:03
ESR 43 mm/hour (0-20) H 04/24/24 12:11
PT 14.5 Sec (11.4-14.6) 04/23/24 11:37
INR 1.12 04/23/24 11:37
APTT 28.3 Sec (23.4-35.0) 04/23/24 11:37
Estimated Creat Clear > 125 ml/min 05/01/24 08:03
Total Bilirubin 1.4 mg/dl (0.2-1.3) H 05/01/24 08:03
AST 71 U/L (17-59) H 05/01/24 08:03
ALT 43 U/L (0-50) 05/01/24 08:03
Alkaline Phosphatase 106 U/L (38-126) 05/01/24 08:03
C-Reactive Protein > 270.00 mg/L (0.0-10.00) H 04/28/24 04:09
Most recent labs reviewed.
Micro Results:
04/23/24 11:22 Blood Culture - Final
Blood/Venous No Growth - Final Report
Imaging:
04/27/2024 CT abdomen/pelvis with contrast: Severe peripancreatic edema is noted to be increased when compared to prior CTs, consistent with severe acute pancreatitis. There is intra pancreatic parenchymal edema and scattered areas of
hypoenhancement within the pancreatic body and tail consistent with pancreatic necrosis. Peripancreatic a inflammatory fluid is noted to be tracking along the left paracolic gutter and into the pelvis, consistent with peripancreatic phlegmon and
reactive free fluid. No definite well-organized abscess is appreciated. There is also diffuse mid small bowel dilatation without transition point suggesting a reactive ileus. Please see full dictation for additional detail. Film personally
viewed.
--- NOTE | 2024-05-01 14:04 | PTCARENOTE ---
Pt able to demonstrate insulin administration on self prior to morning and lunch meals. Demonstrated understanding of checking blood sugar. Discharge order in and instructions reviewed with patient. Anxiety about discharge, emotional support
provided. Pt able to verbalize symptoms that would cause him to seek medical treatment. No further questions. Wheelchair escort to family car.
== END 2024-05-01 14:00 | disposition home or self-care (01) | DRG 438 ==
LOC: 3 WEST ACU 10:45
PROVIDERS: Emergency Medicine; Internal Medicine Cardiovascular Disease; Internal Medicine Gastroenterology; Nurse Practitioner; Nurse Practitioner Gerontology; Nurse Practitioner Primary Care; Radiology Diagnostic Radiology; ADMITTING PHYSICIAN Internal Medicine; ATTENDING PHYSICIAN Internal Medicine; CONSULT PHYSICIAN Internal Medicine; CONSULT PHYSICIAN Internal Medicine Cardiovascular Disease; CONSULT PHYSICIAN Internal Medicine Gastroenterology; CONSULT PHYSICIAN Specialist; EMERGENCY PHYSICIAN Emergency Medicine; FAMILY PHYSICIAN Student in an Organized Health Care Education/Training Program; OTHER PHYSICIAN Internal Medicine Infectious Disease
PROC: 02HV33Z Insertion of Infusion Device into Superior Vena Cava, Percutaneous Approach (ICD-10-PCS; 2024-04-23)
DX: K85.81 Other acute pancreatitis with uninfected necrosis (principal); I50.31 Acute diastolic (congestive) heart failure; N17.9 Acute kidney failure, unspecified; Z68.42 Body mass index [BMI] 45.0-49.9, adult; E87.20 Acidosis, unspecified; I47.10 Supraventricular tachycardia, unspecified; I5A Non-ischemic myocardial injury (non-traumatic); K56.7 Ileus, unspecified; J98.11 Atelectasis; J90 Pleural effusion, not elsewhere classified; R65.10 Systemic inflammatory response syndrome (SIRS) of non-infectious origin without acute organ dysfunction; I11.0 Hypertensive heart disease with heart failure; F12.90 Cannabis use, unspecified, uncomplicated; R11.2 Nausea with vomiting, unspecified; F90.9 Attention-deficit hyperactivity disorder, unspecified type; E11.65 Type 2 diabetes mellitus with hyperglycemia; M10.9 Gout, unspecified; R06.89 Other abnormalities of breathing; R09.02 Hypoxemia; E87.5 Hyperkalemia; F17.290 Nicotine dependence, other tobacco product, uncomplicated; R91.1 Solitary pulmonary nodule; K76.0 Fatty (change of) liver, not elsewhere classified; R16.0 Hepatomegaly, not elsewhere classified; J34.2 Deviated nasal septum; E83.51 Hypocalcemia; E66.01 Morbid (severe) obesity due to excess calories; Z82.49 Family history of ischemic heart disease and other diseases of the circulatory system; Z82.3 Family history of stroke; Z83.3 Family history of diabetes mellitus
CPT/HCPCS: 71045; 74176; 74177; 74183; 80048; 80053; 80306; 80307; 81003; 81015; 82248; 82728; 82787; 82962; 83036; 83615; 83690; 83735; 83880; 84100; 84443; 84478; 84484; 85025; 85027; 85610; 85652; 85730; 86140; 87040; 93005; 93306; 94640; 96361; 96374; 96375; 96376; 97116; 97163; 97166; 97530; 97535; 99285; A9585; J0153; J7030; Q9950; Q9967

== ENCOUNTER → 2024-06-22 12:00 | Outpatient (REF) | payer BC, SELFPAY | LOC: DHSLP 12:00 | PROVIDERS: ATTENDING PHYSICIAN Internal Medicine Critical Care Medicine; FAMILY PHYSICIAN Student in an Organized Health Care Education/Training Program | DX: G47.33 Obstructive sleep apnea (adult) (pediatric) (principal) | CPT/HCPCS: 95800 ==

== ENCOUNTER 2024-11-26 06:24 | Day surgery (SDC) | payer BC, SELFPAY ==
[2024-11-26 07:22] VITALS: BMI 38.3
[2024-11-26 07:23] VITALS: BMI 38.3
[2024-11-26 07:26] VITALS: BP 165/107
[2024-11-26 09:15] VITALS: BP 127/80
[2024-11-26 09:30] VITALS: BP 130/74
[2024-11-26 09:45] VITALS: BP 125/77
== END 2024-11-26 11:12 | disposition home or self-care (01) ==
LOC: SDS 06:24
PROVIDERS: ATTENDING PHYSICIAN Internal Medicine Gastroenterology
DX: K86.3 Pseudocyst of pancreas (principal); K31.89 Other diseases of stomach and duodenum; K86.9 Disease of pancreas, unspecified; K85.90 Acute pancreatitis without necrosis or infection, unspecified; R93.5 Abnormal findings on diagnostic imaging of other abdominal regions, including retroperitoneum
CPT/HCPCS: 43237

== ENCOUNTER → 2025-02-10 13:08 | Outpatient (REF) | payer BC, SELFPAY | LOC: MRI 13:08 | PROVIDERS: ATTENDING PHYSICIAN Internal Medicine Gastroenterology; FAMILY PHYSICIAN Student in an Organized Health Care Education/Training Program | DX: K86.89 Other specified diseases of pancreas (principal) | CPT/HCPCS: 74183; A9575 ==